=== PATIENT | female | born 1990 | race Caucasian/White ===

== ENCOUNTER 2024-06-11 20:01 | Emergency (ER) | payer OTHER, SELFPAY ==
[2024-06-11 20:05] VITALS: BP 143/83; PULSE 88; TEMP 36.6; O2SAT 98
--- NOTE | 2024-06-11 20:26 | ED_ITS ---
Documented by User: NAM Hylton 06/11/24 21:44 HPI - Female Genitourinary General Chief complaint: Vaginal Bleeding Stated complaint: Vaginal Bleeding Time Seen by Provider: 06/11/24 20:07 Source: patient and friend (Pain) Mode of arrival: walk-in Limitations: no limitations History of Present Illness HPI Narrative: 34-year-old female presents to the emergency department with fianc? with complaint of abdominal pain, cramping. Onset yesterday. She has had associated vaginal bleeding, describes as heavy. Has not noticed any clots. Symptoms have been worsening since yesterday. Patient recently had her IUD removed and had her first period on the 15th of last month. States she had not had a period in 14 years. States pain wraps around to her back. Has had associated nausea. Denies any fever, vomiting, dysuria, frequency. Surgical history positive for 14 years ago Quality:?Cramping Severity:?Moderate Timing:?As above, constant, worsening Context: Normal setting and activity? Modifying factors:?Pain worse with palpation Associated symptoms: As above Related Data Allergies Allergy/AdvReac Type Severity Reaction Status Date / Time No Known Drug Allergies Allergy Verified 06/11/24 20:14 Review of Systems ROS0 Constitutional Denies: fever or chills Cardiovascular Denies: chest pain or shortness of breath with exertion Respiratory Denies: shortness of breath Gastrointestinal Reports: abdominal pain and nausea; Denies: vomiting or diarrhea Genitourinary Reports: vaginal bleeding, irregular period and change in menstrual flow; Denies: painful urination, urinary frequency, pelvic pain or vaginal discharge Musculoskeletal Reports: back pain PFSH PFSH Social History Little interest or pleasure in doing things: not at all Feeling down, depressed, or hopeless: not at all Exam Constitutional Vital Signs, click to edit/add: Last Vital Signs Temp 97.9 F 06/11/24 20:05 Pulse 88 06/11/24 20:05 Resp 22 H 06/11/24 20:05 BP 143/83 H 06/11/24 20:05 Pulse Ox 98 06/11/24 20:05 O2 Del Method Room Air 06/11/24 20:05 Documenting provider has reviewed patient's vital signs: yes Common normals: no apparent distress, oriented x3 and alert Other: Appears uncomfortable HENMT Common normals: normocephalic and head/scalp atraumatic Head and scalp: normocephalic and atraumatic Respiratory Common normals: normal respiratory effort and clear to auscultation bilaterally Effort & inspection: able to speak in complete sentences Auscultation: clear to auscultation bilaterally Cardio Common normals: regular rate, regular rhythm and no murmurs Rate: regular rate Rhythm: regular rhythm GI Common normals: Normal to inspection, nondistended, normoactive bowel sounds present and soft to palpation Palpation: soft and tender Details: other (generalized) Common normals: no CVA tenderness Bladder/kidney exam: no CVA tenderness Back & Pelvis Common normals: no CVA tenderness Neuro Common normals: oriented x3, moves all extremities, no focal motor deficits and gait normal Sensorium/orientation: alert Course Vital Signs Vital signs: Vital Signs Temperature 97.9 F 06/11/24 20:05 Pulse Rate 88 06/11/24 20:05 Respiratory Rate 22 H 06/11/24 20:05 Blood Pressure 143/83 H 06/11/24 20:05 Pulse Oximetry 98 06/11/24 20:05 Oxygen Delivery Method Room Air 06/11/24 20:05 Temperature 97.9 F 06/11/24 20:05 Pulse Rate 88 06/11/24 20:05 Respiratory Rate 22 H 06/11/24 20:05 Blood Pressure 143/83 H 06/11/24 20:05 Pulse Oximetry 98 06/11/24 20:05 Oxygen Delivery Method Room Air 06/11/24 20:05 MDM - Female Genitourinary MDM Narrative Medical decision making narrative: This is a pleasant 34-year-old female who presented to the emergency department with kenrick with complaint of abdominal pain that wraps around to her back, heavy vaginal bleeding since yesterday. Pain described as cramping. Has had some nausea. Patient started having periods last month after IUD removed. She had implant and Depo shots and has not had a period in 14 years following her first . Prior to yesterday, her last period was May 15. On arrival, afebrile, vital signs are stable. On exam, nontoxic, uncomfortable appearing patient in no gross distress. Heart regular rate and rhythm. Lung sounds clear and equal bilaterally. Abdomen is soft with generalized tenderness throughout. She does have CVA tenderness. Labs reveal negative . She has a leukocytosis of 16.8. No anemia, thrombocytopenia, electrolyte imbalance, renal impairment. Glucose 116. Magnesium 1.5. Urinalysis positive for blood, no evidence of infection. US PELVIS: pending CT ABD/PELVIS: pending Favor dysmenorrhea, abdominal pain, dysfunctional uterine bleeding Ectopic, less likely based on negative test urinary tract infection less likely based on negative urinalysis. History and record review Discussion with independent historian: Kimberli? No additional records available Additional testing interventions IV fluids: Hydration PLEASE NOTE: Portions of the medical record may have been produced using electronic range operator and may contain errors with respect to translation of words which may not have been identified prior to finalization of the chart. Medical Records Attestation: I reviewed the patient's medical records. Lab Data Attestation: I reviewed the patient's lab results. Labs: Lab Results 06/11/24 06/11/24 Range/Units 20:15 20:30 WBC 16.8 H (4.0-11.0) 10^3/uL RBC 4.43 (4.20-5.40) 10^6/uL Hgb 12.4 (12.0-16.0) g/dL Hct 36.7 (36.0-48.0) % MCV 82.8 (81.0-99.0) fL MCH 28.0 (26.7-34.0) pg MCHC 33.8 (29.9-35.2) g/dL RDW 13.9 (11.0-15.0) % Plt Count 274 (150-450) 10^3/uL MPV 9.9 (9.5-13.5) fL Neut % (Auto) 88.6 H (43.0-75.0) % Lymph % (Auto) 6.1 L (20.5-60.0) % [place] % (Auto) 4.5 (1.7-12.0) % Eos % (Auto) 0.2 L (0.9-7.0) % Baso % (Auto) 0.2 (0.2-2.0) % Neut # (Auto) 14.9 H (1.4-6.5) 10^3/uL Lymph # (Auto) 1.0 L (1.2-3.8) 10^3/uL [place] # (Auto) 0.8 (0.3-0.8) 10^3/uL Eos # (Auto) 0.0 (0.0-0.7) 10^3/uL Baso # (Auto) 0.0 (0.0-0.1) 10^3/uL Abs Immat Gran (auto) 0.06 H (0.00-0.03) 10^3/uL Imm/Tot Granulo (auto) 0.4 (0.0-0.5) % Sodium 134 L (136-145) mmol/L Potassium 3.4 L (3.5-5.1) mmol/L Chloride 101 (98-107) mmol/L Carbon Dioxide 24.5 (21.0-32.0) mmol/L Anion Gap 11.9 BUN 17.0 (7.0-18.0) mg/dL Creatinine 0.69 (0.55-1.02) mg/dL Est GFR ( Amer) >60 (>=60) Est GFR (Non-Af Amer) >60 (>=60) BUN/Creatinine Ratio 24.6 Glucose 116 H (74-106) mg/dL Calcium 8.9 (8.5-10.1) mg/dL Magnesium 1.5 L (1.8-2.4) mg/dL Total Bilirubin 0.5 (0.2-1.0) mg/dL AST 16 (15-37) U/L ALT 24 (14-59) U/L Alkaline Phosphatase 67 (46-116) U/L Total Protein 7.3 (6.4-8.2) g/dL Albumin 3.7 (3.4-5.0) g/dL Globulin 3.6 g/dL Albumin/Globulin Ratio 1.0 Lipase 46.0 (16.0-77.0) U/L Serum HCG, Qual Negative (NEGATIVE) Urine Color Lt. yellow (YELLOW) Urine Clarity Clear (CLEAR) Urine pH >=9.0 A (5.0-9.0) Ur Specific [place] 1.020 (1.005-1.025) Urine Protein Trace (NEG/TRACE) mg/dL Urine Glucose (UA) Negative (NEGATIVE) mg/dL Urine Ketones Negative (NEGATIVE) mg/dL Urine Occult Blood Large A (NEGATIVE) Urine Nitrite Negative (NEGATIVE) Urine Bilirubin Negative (NEGATIVE) Urine Urobilinogen 1.0 (0.2-1.0) EU/dL Ur Leukocyte Esterase Negative (NEGATIVE) Urine RBC 5-10 A (0-2) #/HPF Urine WBC 0-2 A (NONE SEEN) #/HPF Ur Squamous Epith Cells Few A (NONE/RARE) #/LPF Urine Crystals None seen (None Seen) #/HPF Urine Bacteria Small A (NONE SEEN) #/HPF Urine Casts None seen (NONE SEEN) #/LPF Urine Mucus None seen (NONE SEEN) Ur Culture Indicated? Yes Imaging Data Abdominal x-ray: Radiologist's impression: ITS Impressions Abdomen/Pelvis CT 06/11/24 21:03 IMPRESSION: 1. Appendix is normal. No hydronephrosis. No hydroureter. Gallbladder is normal. Pancreas is normal. 2. Small hiatal hernia. Stomach and duodenum are normal. 3. Nonspecific endometrial thickening, correlate with ultrasound. 4. Small fat-containing periumbilical hernia. 5. Other findings as described. Electronically authenticated by: MANUEL RANGEL Date: 06/11/2024 22:55 Transvaginal US 06/11/24 21:03 IMPRESSION: 1. The left ovary is not seen. Blood flow is seen within the right ovary which is normal in size. 2. Borderline thickened endometrium. Consider a follow-up examination in 6-8 weeks to document resolution. Electronically authenticated by: Mitchel ANDRADE Date: 06/11/2024 23:25 Discharge Plan Discharge Chief Complaint: Vaginal Bleeding Clinical Impression: Dysfunctional uterine bleeding, Dysmenorrhea Abdominal pain Qualifiers: Abdominal location: generalized Qualified Code(s): R10.84 - Generalized abdominal pain Patient Disposition: Home, Self-Care Print Language: Latvian Instructions: Abnormal (Dysfunctional) Uterine Bleeding (ED), Dysmenorrhea (ED) Additional Instructions: contact Dr Solares tomorrow for follow up Referrals: FAITH LEGGETT [Primary Care Provider] - 1 week Documented by User: Mak Wiley MD 06/11/24 23:51 HPI - Female Genitourinary General Chief complaint: Vaginal Bleeding Stated complaint: Vaginal Bleeding Time Seen by Provider: 06/11/24 20:07 Related Data Allergies Allergy/AdvReac Type Severity Reaction Status Date / Time No Known Drug Allergies Allergy Verified 06/11/24 20:14 PFSH PFSH Social History Little interest or pleasure in doing things: not at all Feeling down, depressed, or hopeless: not at all Exam Constitutional Vital Signs, click to edit/add: Last Vital Signs Temp 97.9 F 06/11/24 20:05 Pulse 88 06/11/24 20:05 Resp 22 H 06/11/24 20:05 BP 143/83 H 06/11/24 20:05 Pulse Ox 98 06/11/24 20:05 O2 Del Method Room Air 06/11/24 20:05 Course Vital Signs Vital signs: Vital Signs Temperature 97.9 F 06/11/24 20:05 Pulse Rate 88 06/11/24 20:05 Respiratory Rate 22 H 06/11/24 20:05 Blood Pressure 143/83 H 06/11/24 20:05 Pulse Oximetry 98 06/11/24 20:05 Oxygen Delivery Method Room Air 06/11/24 20:05 Temperature 97.9 F 06/11/24 20:05 Pulse Rate 88 06/11/24 20:05 Respiratory Rate 22 H 06/11/24 20:05 Blood Pressure 143/83 H 06/11/24 20:05 Pulse Oximetry 98 06/11/24 20:05 Oxygen Delivery Method Room Air 06/11/24 20:05 MDM - Female Genitourinary Medical Records Medical records narrative: care transferred at end of PA shift. diagnostic studies pending and returned without acute findings. Patient is feeling better. Discharged home and advised to contact her Life Assurance Representative tomorrow to update on her condition and schedule follow up. elevated WBC felt 2nd to pain and demargnation Lab Data Labs: Lab Results 06/11/24 06/11/24 Range/Units 20:15 20:30 WBC 16.8 H (4.0-11.0) 10^3/uL RBC 4.43 (4.20-5.40) 10^6/uL Hgb 12.4 (12.0-16.0) g/dL Hct 36.7 (36.0-48.0) % MCV 82.8 (81.0-99.0) fL MCH 28.0 (26.7-34.0) pg MCHC 33.8 (29.9-35.2) g/dL RDW 13.9 (11.0-15.0) % Plt Count 274 (150-450) 10^3/uL MPV 9.9 (9.5-13.5) fL Neut % (Auto) 88.6 H (43.0-75.0) % Lymph % (Auto) 6.1 L (20.5-60.0) % [place] % (Auto) 4.5 (1.7-12.0) % Eos % (Auto) 0.2 L (0.9-7.0) % Baso % (Auto) 0.2 (0.2-2.0) % Neut # (Auto) 14.9 H (1.4-6.5) 10^3/uL Lymph # (Auto) 1.0 L (1.2-3.8) 10^3/uL [place] # (Auto) 0.8 (0.3-0.8) 10^3/uL Eos # (Auto) 0.0 (0.0-0.7) 10^3/uL Baso # (Auto) 0.0 (0.0-0.1) 10^3/uL Abs Immat Gran (auto) 0.06 H (0.00-0.03) 10^3/uL Imm/Tot Granulo (auto) 0.4 (0.0-0.5) % Sodium 134 L (136-145) mmol/L Potassium 3.4 L (3.5-5.1) mmol/L Chloride 101 (98-107) mmol/L Carbon Dioxide 24.5 (21.0-32.0) mmol/L Anion Gap 11.9 BUN 17.0 (7.0-18.0) mg/dL Creatinine 0.69 (0.55-1.02) mg/dL Est GFR ( Amer) >60 (>=60) Est GFR (Non-Af Amer) >60 (>=60) BUN/Creatinine Ratio 24.6 Glucose 116 H (74-106) mg/dL Calcium 8.9 (8.5-10.1) mg/dL Magnesium 1.5 L (1.8-2.4) mg/dL Total Bilirubin 0.5 (0.2-1.0) mg/dL AST 16 (15-37) U/L ALT 24 (14-59) U/L Alkaline Phosphatase 67 (46-116) U/L Total Protein 7.3 (6.4-8.2) g/dL Albumin 3.7 (3.4-5.0) g/dL Globulin 3.6 g/dL Albumin/Globulin Ratio 1.0 Lipase 46.0 (16.0-77.0) U/L Serum HCG, Qual Negative (NEGATIVE) Urine Color Lt. yellow (YELLOW) Urine Clarity Clear (CLEAR) Urine pH >=9.0 A (5.0-9.0) Ur Specific [place] 1.020 (1.005-1.025) Urine Protein Trace (NEG/TRACE) mg/dL Urine Glucose (UA) Negative (NEGATIVE) mg/dL Urine Ketones Negative (NEGATIVE) mg/dL Urine Occult Blood Large A (NEGATIVE) Urine Nitrite Negative (NEGATIVE) Urine Bilirubin Negative (NEGATIVE) Urine Urobilinogen 1.0 (0.2-1.0) EU/dL Ur Leukocyte Esterase Negative (NEGATIVE) Urine RBC 5-10 A (0-2) #/HPF Urine WBC 0-2 A (NONE SEEN) #/HPF Ur Squamous Epith Cells Few A (NONE/RARE) #/LPF Urine Crystals None seen (None Seen) #/HPF Urine Bacteria Small A (NONE SEEN) #/HPF Urine Casts None seen (NONE SEEN) #/LPF Urine Mucus None seen (NONE SEEN) Ur Culture Indicated? Yes Imaging Data Abdominal x-ray: Radiologist's impression: ITS Impressions Abdomen/Pelvis CT 06/11/24 21:03 IMPRESSION: 1. Appendix is normal. No hydronephrosis. No hydroureter. Gallbladder is normal. Pancreas is normal. 2. Small hiatal hernia. Stomach and duodenum are normal. 3. Nonspecific endometrial thickening, correlate with ultrasound. 4. Small fat-containing periumbilical hernia. 5. Other findings as described. Electronically authenticated by: MANUEL RANGEL Date: 06/11/2024 22:55 Transvaginal US 06/11/24 21:03
[2024-06-11 20:38] LABS: Basophils Percent Auto 0.2 % (0.2-2.0); Eosinophils Percent Auto 0.2 % (0.9-7.0); Hematocrit 36.7 % (36.0-48.0); Hemoglobin 12.4 g/dL (12.0-16.0); Immature Granulocytes Abs Auto 0.06 10^3/uL (0.00-0.03); Immature Granulocytes Pct Auto 0.4 % (0.0-0.5); Lymphocytes Percent Auto 6.1 % (20.5-60.0); Mean Corpuscular HGB Conc 33.8 g/dL (29.9-35.2); Mean Corpuscular Volume 82.8 fL (81.0-99.0); Mean Platelet Volume 9.9 fL (9.5-13.5); Monocytes Absolute Auto 0.8 10^3/uL (0.3-0.8); Monocytes Percent Auto 4.5 % (1.7-12.0); Neutrophils Absolute Auto 14.9 10^3/uL (1.4-6.5); Neutrophils Percent Auto 88.6 % (43.0-75.0); Platelet Count 274 10^3/uL (150-450); Red Blood Count 4.43 10^6/uL (4.20-5.40); Red Cell Distribution Width 13.9 % (11.0-15.0); White Blood Count 16.8 10^3/uL (4.0-11.0)
[2024-06-11 20:39] LABS: Bilirubin Urine NEGATIVE (NEGATIVE); Blood Urine LARGE (NEGATIVE); Clarity Urine CLEAR (CLEAR); Color Urine LT. YELLOW (YELLOW); Glucose Urine UA NEGATIVE (NEGATIVE); Ketones Urine NEGATIVE (NEGATIVE); Leukocyte Esterase Urine NEGATIVE (NEGATIVE); Nitrite Urine NEGATIVE (NEGATIVE); Protein Urine TRACE mg/dL (NEG/TRACE); pH Urine >=9.0 (5.0-9.0)
[2024-06-11 20:47] LABS: Bacteria Urine SMALL #/HPF (NONE SEEN); Cast Seen? NONE SEEN #/LPF (NONE SEEN); Crystals Seen? None Seen #/HPF (None Seen); Mucus Urine NONE SEEN (NONE SEEN); Squamous Epithelial Cell Urine FEW #/LPF (NONE/RARE); Urine Culture Indicated YES; WBC Urine 0-2 #/HPF (NONE SEEN)
[2024-06-11 20:48] LABS: HCG Qualitative NEGATIVE (NEGATIVE); Internal Control Within Normal Limits
[2024-06-11] MEDS: 0.9 % SODIUM CHLORIDE 1,000 ML 999 ML IV (20:51)
[2024-06-11] MEDS: MORPHINE SULFATE 4 MG/ML VIAL IV (20:52)
[2024-06-11] MEDS: ONDANSETRON PF 4 MG/2 ML VIAL IV (20:52)
[2024-06-11 20:54] LABS: Alanine Aminotransferase 24 U/L (14-59); Albumin Level 3.7 g/dL (3.4-5.0); Alkaline Phosphatase 67 U/L (46-116); Anion Gap 11.9; Aspartate Amino Transferase 16 U/L (15-37); BUN Creatinine Ratio 24.6; Bilirubin Total 0.5 mg/dL (0.2-1.0); Calcium 8.9 mg/dL (8.5-10.1); Carbon Dioxide 24.5 mmol/L (21.0-32.0); Chloride 101 mmol/L (98-107); Estimated GFR (African America >60 (>=60); Estimated GFR (Non-African Ame >60 (>=60); Globulin 3.6 g/dL; Glucose 116 mg/dL (74-106); Magnesium 1.5 mg/dL (1.8-2.4); Potassium 3.4 mmol/L (3.5-5.1); Sodium 134 mmol/L (136-145); Total Protein 7.3 g/dL (6.4-8.2)
--- NOTE | 2024-06-11 21:03 | US_ITS ---
[facility] [place] [id number] Patient Name: BRAEDEN CHAMBERLAIN MRN: [id number] date: 1990 Sex: F Assigned Patient Location: ED.MAIN Current Patient Location: ER Accession/Order Number: [id number] Exam Date: 06/11/2024 21:25 Report Date: 06/11/2024 23:25 At the request of: DONALD NG Procedure: US pelvis transvaginal EXAM: US pelvis transvaginal HISTORY: abd, pelvic pain, vaginal bleeding r/o torsion, COMPARISON: None. TECHNIQUE: Real time pelvic ultrasound examination was performed using Duplex Doppler by a transvaginal approach. FINDINGS: The uterus is normal in size and echogenicity measuring 11.2 cm in length. No focal myometrial lesions are seen. The endometrium is borderline thickened measuring up to 1.7 cm in thickness. The right ovary measures 3.7 x 2.3 x 2.7 cm. There is a suspected right ovarian follicle measuring up to 1.3 x 1.3 x 2.0 cm. The left ovary is not seen. Blood flow is seen in the right ovary. There is no significant free fluid. US/US pelvis transvaginal IMPRESSION: 1. The left ovary is not seen. Blood flow is seen within the right ovary which is normal in size. 2. Borderline thickened endometrium. Consider a follow-up examination in 6-8 weeks to document resolution. Electronically authenticated by: Mitchel ANDRADE Date: 06/11/2024 23:25
--- NOTE | 2024-06-11 21:03 | CT_ITS ---
[address] [address] Patient Name: BRAEDEN CHAMBERLAIN MRN: [id number] date: 1990 Sex: F Assigned Patient Location: ER Current Patient Location: .[facility] Accession/Order Number: [id number] Exam Date: 06/11/2024 21:56 Report Date: 06/11/2024 22:55 At the request of: DONALD NG Procedure: CT abdomen pelvis w con EXAM: CT abdomen pelvis w con HISTORY: leukocytosis, abd pain, generalized COMPARISON: None. TECHNIQUE: Dose reduction techniques were achieved by using automated exposure control and/or adjustment of mA and/or kV according to patient size and/or use of iterative reconstruction technique.CT of the abdomen and pelvis with contrast. FINDINGS: Lung bases are clear. Liver, gallbladder, spleen, pancreas, kidneys, distal esophagus, stomach, duodenum and adrenal glands are normal. No colonic wall thickening or dilation. No small bowel dilation. No mesenteric edema. Appendix is normal. No bladder wall thickening. Nonspecific subcentimeter Nonspecific large mediastinal nodes. Large mediastinal node measuring 1.1 cm (). Large mediastinal node measuring 1.1 cm (). Fat-containing periumbilical hernia. No acute osseous abnormality. Mild degeneration of the symphysis pubis. No acute osseous abnormality. CT/CT abdomen pelvis w con IMPRESSION: 1. Appendix is normal. No hydronephrosis. No hydroureter. Gallbladder is normal. Pancreas is normal. 2. Small hiatal hernia. Stomach and duodenum are normal. 3. Nonspecific endometrial thickening, correlate with ultrasound. 4. Small fat-containing periumbilical hernia. 5. Other findings as described. Electronically authenticated by: MANUEL RANGEL Date: 06/11/2024 22:55
[2024-06-11] MEDS: KETOROLAC TROMETHAMINE 30 MG/ML VIAL 15 MG IVP (22:16)
[2024-06-11] MEDS: MAGNESIUM SULFATE IN WATER 2 GM/50 ML PREMIX IV (22:17)
[2024-06-12] MEDS: HYDROCODONE/ACET 5-325 MG TABLET 4 TAB PO (00:02)
== END 2024-06-12 00:12 | disposition home or self-care (01) ==
PROVIDERS: Physician Assistant; Emergency Provider Internal Medicine; PCP Physician Assistant
DX: N94.6 Dysmenorrhea, unspecified (principal); N93.9 Abnormal uterine and vaginal bleeding, unspecified; R10.84 Generalized abdominal pain
CPT/HCPCS: 36415; 74177; 76830; 80053; 81001; 83690; 83735; 84703; 85025; 87086; 87186; 87210; 87491; 87591; 96374; 96375; 99285; J1885; J2270; J2405; J3475; Q9967

== ENCOUNTER 2024-06-18 19:05 | Outpatient (REF) | payer OTHER, SELFPAY ==
--- OUTSIDE RECORDS SUMMARY | 2024-06-18 19:10 | XMS_ITS | CCD ---
Author Organization [facility] Care Team Providers Care Director Of Casework Department Name Role Phone RICKI RODRIGUEZ Admitting Unavailable RICKI RODRIGUEZ Attending Unavailable REQUEST, NONE LISTED Primary Care Unavailable RICKI RODRIGUEZ Consulting Unavailable PRAVIN PALOMINO Consulting Unavailable RICKI RODRIGUEZ Admitting Unavailable RICKI RODRIGUEZ Attending Unavailable RICKI RODRIGUEZ Consulting Unavailable Shireen Fournier Unavailable Unavailable Primary Care Provider UnavailJYOTI Yepez Attending Unavailable JYOTI LEGGETT Attending Unavailable JYOTI LEGGETT Attending Unavailable LUZMARIA MUNOZ Attending Unavailable JYOTI LEGGETT Attending Unavailable LUZMARIA MUNOZ Attending Unavailable JYOTI LEGGETT Attending Unavailable JYOTI LEGGETT Attending Unavailable Medications Current Medications Medication Drug Class(es) Dates Sig (Normalized) Sig (Original) cyclobenzaprine hydrochloride 10 mg oral tablet (1 source) Muscle Relaxant Start: 03-14-20 take 1 tablet by mouth every twenty-four hours Cyclobenzaprine HCl 10 MG 1 tablet at bedtime as needed Orally Once a day for 7 day(s) Mar, Active etonogestrel 68 mg drug implant (2 sources) Progestin etonogestrel-elu ting (Nexplanon) 68 mg contraceptive implant as directed Subcutaneous 0 Active lidocaine 0.05 mg/mg medicated patch (1 source) Antiarrhythmic, Amide Local Anesthetic Start: 03-14-20 Lidoderm 5 % 1 patch remove after 12 hours Externally Once a day for 7 days Mar, Active methylPREDNISolone 4 mg oral tablet (1 source) Corticosteroid Start: 03-14-20 methylPREDNISolone 4 MG as directed Orally for daily dose take half with breakfast, half with dinner for 6 days Mar, Active mometasone furoate 1 mg/ml topical lotion (2 sources) Corticosteroid Start: 11-13-19 mometasone (Elocon) 0.1 % lotion Indications: Dry skin dermatitis Apply topically Daily 30 mL 2 11/13/2023 Active phentermine hydrochloride 37.5 mg oral tablet (1 source) Sympathomimetic Amine Anorectic Start: 04-01-20 Phentermine Active MG PO April 01, 2024 12:00am predniSONE 20 mg oral tablet (1 source) Start: 04-01-20 take 3 tablets by mouth once daily, then take 2 tablets by mouth once daily, then take 1 tablet by mouth once daily Prednisone Active 20 MG PO .COMPLEX April 01, 2024 12:00am Take 3 tabs po daily x 3 days, then take 2 tabs po daily x 3 days, then take 1 tab po daily x 3 days. Completed/Discontinued Medications Medication Drug Class(es) Dates Sig (Normalized) Sig (Original) Ketorolac (1 source) Nonsteroidal Anti-inflammatory Drug, Cyclooxygenase Inhibitor Start: 03-14-2022 Toradol per 15 mg Mar, 30 mg triamcinolone acetonide 40 mg/ml injectable suspension (1 source) Corticosteroid Start: 03-14-2022 Kenalog-40 Mar, 40 mg Problems Active Problems Problem Classification Problem Date Documented Da te Episodic/Chronic Immunizations and screening for infectious disease (1 source) Encounter for screening for human papillomavirus (HPV); Translations: [ENC SCREENING HUMAN PAPILLOMAVIRUS] Onset: 06-30-2020 Episodic Other bone disease and musculoskeletal deformities (2 sources) Osteopenia; Translations: [Other specified disorders of bone density and structure, left thigh] Onset: 11-13-2023 11-13-2023 Episodic Other non-traumatic joint disorders (4 sources) Multiple joint pain; Translations: [Pain in unspecified joint] Onset: 11-13-2023 11-13-2023 Episodic Other nutritional; endocrine; and metabolic disorders (4 sources) Morbid obesity; Translations: [Morbid (severe) obesity due to excess calories] Onset: 11-13-2023 11-13-2023 Chronic Other screening for suspected conditions (not mental disorders or infectious disease) (4 sources) Encounter for screening for malignant neoplasm of cervix; Translations: [ENC SCREENING MALIG NEOPLASM CERV] Onset: 06-23-2020 Episodic Other skin disorders (4 sources) Dry skin dermatitis; Translations: [Xerosis cutis] Onset: 11-13-2023 11-13-2023 Episodic Viral infection (2 sources) Human papilloma virus infection; Translations: [Papillomavirus as the cause of diseases classified elsewhere] Onset: 11-13-2023 11-13-2023 Episodic Past or Other Problems Problem Classification Problem Date Documented Da te Episodic/Chronic Other aftercare (4 sources) Other superintendent container terminal (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 Comment on above: Performed By: #### [id number] #### [facility] [address] [place] [address] Cindy Montes DIAGNOSIS: Comment Normal [facility] Comment on above: Result Comment: NEGATIVE FOR INTRAEPITHE LIAL LESION OR MALIGNANCY. Performed at: WB Performed By: #### [id number] #### [facility] [address] [place] [address] Cindy Montes HPV Aptima Negative Normal Negative [facility] Comment on above: Result Comment: This test was developed and its performance characteristics determined by [employer]. It has not been cleared or approved by the Food and Drug Administration. This nucleic acid amplification test detects fourteen high-risk HPV types (16,18,31,33,35,39,45,51,52,56,58,59,66,68) without differentiation. Performed at: =G Performed By: #### [id number] #### [facility] [address] [place] [address] Cindy Montes Methodology: Comment Normal [facility] Comment on above: Result Comment: This liquid based SurePa th(R) pap test was screened with the assistance of an image guided system. Performed at: WB Performed By: #### [id number] #### [facility] [address] [place] [address] Cindy Jyoti Note: Comment Normal [facility] Comment on above: Result Comment: The Pap smear is a scree aaron test designed to aid in the detection of premalignant and malignant conditions of the uterine cervix. It is not a diagnostic procedure and should not be used as the sole means of detecting cervical cancer. Both false-positive and false-negative reports do occur. . Performed at: WB Performed By: #### [id number] #### [facility] [address] [place] [address] Cindy Jyoti Performed by: Comment Normal [facility] Comment on above: Result Comment: Charis Mi [employer] ologist (ASCP) Performed at: WB Performed By: #### [id number] #### [facility] [address] [place] [address] Cindy Jyoti Specimen adequacy: Comment Normal [facility] Comment on above: Result Comment: Satisfactory for evaluat ion. Endocervical and/or squamous metaplastic cells (endocervical component) are present. Performed at: WB Performed By: #### [id number] #### [facility] [address] [place] [address] Cindy Jyoti . . Normal [facility] Comment on above: Result Comment: Performed at: WB Performed By: #### [id number] #### [facility] [address] [place] [address] Cindyfrandy Terrazasen XR DEXA BONE DENSITYon 09-22 XR DEXA BONE DENSITY Patient: BRAEDEN MCCULLOUGH Exam Date: 09/22/2019 : 1990 Gender:F Ordering : DR RICKI RODRIGUEZ . Admission #: [id number] Family : Order #: [id number] CLICK HERE TO VIEW EXAM RADIOLOGY REPORT PROCEDURE: RADIOGRAPH DEXA BONE DENSITY COMPARISON: None. INDICATIONS: Long-term use of control. Screening for osteoporosis TECHNIQUE: Dual-energy X-ray absorptiometry (DXA) was performed. SPINE ANALYSIS RESULTS: Average lumbar bone mineral density (BMD) (g/cm2): 1.254 T-score (standard deviation relative to young adult mean BMD): 0.5 SPINE CLASSIFICATION (WHO): NORMAL: T-score at or above -1.0 SD HIP ANALYSIS RESULTS: Left femoral trochanter bone mineral density (BMD) (g/cm2): 0.716 T-score (standard deviation relative to young adult mean BMD): -1.2 HIP CLASSIFICATION (WHO): OSTEOPENIA: T-score between -1.0 AND -2.5 SD Note: The 2007 International Society for Clinical Densitometry (ISCD) Official Positions state that osteoporosis in dirk-menopausal and post-menopausal women and in men age 50 and older may be diagnosed if the T-score of the lumbar spine, total hip, or femoral neck is -2.5 or less. Hip BMD is reported from the femoral neck, trochanter, or total proximal femur whichever is lowest. ADDITIONAL FINDINGS: No significant additional findings. Dictated by: Pravin Palomino M.D. on 09/22/2019 at 10:54 Approved by: Pravin Palomino M.D. on 09/22/2019 at 10:[address] [facility] Vital Signs Date Time Vital Sign Value Performing Clinician Facility 04-01-2024 10:38-0400 Body height 170.18 cm [facility] 04-01-2024 10:38-0400 Body mass index (BMI) [Ratio] 36.6 kg/m2 [facility] 04-01-2024 10:38-0400 Body temperature 97.3 [degF] [facility] 04-01-2024 10:38-0400 Body weight 106.25 kg [facility] 04-01-2024 10:38-0400 Diastolic blood pressure 89 mm[Hg] [facility] 04-01-2024 10:38-0400 Heart rate 66 /min [facility] 04-01-2024 10:38-0400 Respiratory rate 16 /min [facility] 04-01-2024 10:38-0400 SaO2% (BldA) [Mass fraction] 98 % [facility] 04-01-2024 10:38-0400 Systolic blood pressure 124 mm[Hg] [facility] 11-13-2023 15:56-0500 Body mass index (BMI) [Ratio] 40.1 kg/m2 Jyoti Hemmer PA Work Phone: [facility] [employer] 11-13-2023 15:56-0500 Body weight 116.12 kg Jyoti Hemmer PA Work Phone: [facility] [employer] 11-13-2023 15:56-0500 Diastolic blood pressure 72 mm[Hg] Jyoti Hemmer PA Work Phone: [facility] [employer] 11-13-2023 15:56-0500 Heart rate 81 /min Jyoti Hemmer PA Work Phone: [facility] [employer] 11-13-2023 15:56-0500 Respiratory rate 16 /min Jyoti Hemmer PA Work Phone: [facility] [employer] 11-13-2023 15:56-0500 SaO2% (BldA) [Mass fraction] 99 % Jyoti Hemmer PA Work Phone: [facility] [employer] 11-13-2023 15:56-0500 Systolic blood pressure 106 mm[Hg] Jyoti Hemmer PA Work Phone: [facility] [employer] 03-14-2022 18:35-0400 Body height 170.18 cm Shireen Fournier Other [employer] Other 03-14-2022 18:35-0400 Body mass index (BMI) [Ratio] 41.97 kg/m2 Shireen Fournier Other [employer] Other 03-14-2022 18:35-0400 Body temperature 98 [degF] Shrieen Haleler Other [employer] Other 03-14-2022 18:35-0400 Body weight 121.56 kg Shireen Fournier Other [employer] Other 03-14-2022 18:35-0400 Diastolic blood pressure 76 mm[Hg] Shireen Fournier Other [employer] Other 03-14-2022 18:35-0400 Respiratory rate 18 /min Shireen Fournier Other [employer] Other 03-14-2022 18:35-0400 SaO2% (BldA) [Mass fraction] 98 % Shireen Fournier Other [employer] Other 03-14-2022 18:35-0400 Systolic blood pressure 120 mm[Hg] Shireen Fournier Other [employer] Other Encounters Encounter Date Encounter Type Care Provider Facility Start: 06-16-2024 End: 06-16-2024 ambulatory JYOTI LEGGETT Not Available Start: 05-12-2024 End: 05-12-2024 ambulatory JYOTI Bryan HEMMER Not Available Start: 04-14-2024 End: 04-14-2024 ambulatory LUZMARIA ALEXANDER Not Available Start: 04-09-2024 End: 04-09-2024 ambulatory JYOTI Bryan HEMMER Not Available Start: 04-01-2024 End: 04-01-2024 ambulatory [facility] Work Phone: Start: 04-01-2024 End: 04-01-2024 Patient encounter procedure [facility] Work Phone: Start: 03-12-2024 End: 03-12-2024 ambulatory LUZMARIA ALEXANDER Not Available Start: 03-11-2024 End: 03-11-2024 ambulatory JYOTI Bryan HEMMER Not Available Start: 02-11-2024 End: 02-11-2024 ambulatory JYOTI Bryan HEMMER Not Available Start: 11-13-2023 End: 11-13-2023 Office outpatient visit 25 minutes Jyoti Leggett PA Work Phone: [facility] Comment on above: Polyarthralgia (Prim gato Dx); Morbid obesity (CMS/HCC); Dry skin dermatitis Start: 11-13-2023 End: 11-13-2023 ambulatory JYOTI Bryan HEMMER Not Available Start: 11-13-2023 Bamboo flowsheet Jyoti Bryan Allen r PA Work Phone: [facility] Start: 11-13-2023 Bamboo flowsheet Jyoti Bryan Allen r PA Work Phone: [facility] Start: 11-12-2023 Chart abstracting Jyoti Bryan Amanda er PA Work Phone: [facility] Start: 03-14-2022 End: 03-14-2022 ambulatory Shireen Fournier Other [facility] Other Start: 03-14-2022 Office outpatient vi sit 25 minutes Shireen Fournier [facility] Start: 06-23-2020 End: 06-23-2020 Patient encounter procedure RICKI RODRIGUEZ Facility:[facility] Start: 09-22-2019 End: 09-23-2019 Patient encounter procedure RICKI RODRIGUEZ Facility: Plan of Treatment Date Care Activity Detail Author Start: 03-30-2024 Influenza vaccination Influenza Vacc ine (#1) [facility] Comment on above: Postponed from 06/01 (Patient Refused) Start: 02-11-2024 End: 02-11-2024 Patient encounter procedure 02/11/2024 4:00 PM EDT Office Visit [facility] [address] [facility] [address] [place] [address] Jyoti Leggett PA [address] [facility] [address] [place] [address] [facility] Start: 11-13-2023 End: 11-13-2023 Patient encounter procedure [facility] Comment on above: Arrived Start: 2018 Screening for malign ant neoplasm of cervix [facility] Start: 2009 Screening for malign ant neoplasm of cervix Pap Smear [facility] Immunizations Immunization Date Immunization Notes Care Provider Tena leija 03-18-2021 Pfizer Purple Cap SARS-CoV-2 Vaccination Jyoti BROWNING Work Phone: [facility] 02-25-2021 Pfizer Purple Cap SARS-CoV-2 Vaccination Jyoti BROWNING Work Phone: [facility] 05-09-2000 measles, mumps and rubella virus vaccine Jyoti Hemmer PA Work Phone: [facility] 04-18-1993 diphtheria, tetanus toxoids and pertussis vaccine Jyoti Hemmer PA Work Phone: [facility] 04-18-1993 trivalent poliovirus vaccine, live, oral Jyoti Hemmer PA Work Phone: [facility] 03-04-1990 diphtheria, tetanus toxoids and pertussis vaccine Jyoti Hemmer PA Work Phone: [facility] 03-04-1990 haemophilus influenz ae type b vaccine, conjugate unspecified formulation Jyoti Hemmer PA Work Phone: [facility] 03-04-1990 trivalent poliovirus vaccine, live, oral Jyoti Hemmer PA Work Phone: [facility] 11-05-1989 measles, mumps and rubella virus vaccine Jyoti Hemmer PA Work Phone: [facility] 04-02-1989 diphtheria, tetanus toxoids and pertussis vaccine Jyoti Hemmer PA Work Phone: [facility] 1990 diphtheria, tetanus toxoids and pertussis vaccine Jyoti Hemmer PA Work Phone: [facility] 1990 trivalent poliovirus vaccine, live, oral Jyoti Hemmer PA Work Phone: [facility] 1990 diphtheria, tetanus toxoids and pertussis vaccine Jyoti Hemmer PA Work Phone: [facility] 1990 trivalent poliovirus vaccine, live, oral Jyoti Hemmer PA Work Phone: [facility] Payers Date Payer Category Payer Unknown [facility] [employer] [id number] 2023-Present [address] [address] [place] [address] [id number] 2023 Unknown [id number] 2022 Unknown [id number] 1990 Unknown [id number] 3 1988 Unknown [id number] 3 1988 Unknown [id number] 59 1988 Unknown [id number] 59 1988 Unknown [id number] 59 1988 Unknown [id number] 59 1988 Unknown [id number] 59 1988 Unknown [id number] 59 1988 Unknown [id number] 59 1988 Unknown [id number] 59 1959 Unknown [id number] Social History Date Type Detail Facility Unknown if ever smoked [facility] [employer] Other Start: 11-13-2023 Sex Assigned At N [facility] [employer] Other Start: 11-12-2023 End: 11-13-2023 Tobacco smoking status ARIS Never smoked tobacco [facility] Start: 1990 Sex Assigned At Not on file [facility] Start: 11-13-2023 Tobacco use and exposure Smokeless tobacco non-user [facility] Start: 11-13-2023 Alcohol intake Lifetime non-d sahara (finding) [facility] Start: 11-13-2023 History of Social function [facility] Start: 1990 Sex Assigned At Female F [facility] History of Present illness Narrative 11-13-2023 NAM Orourke - 11/13/2023 4:00 PM EST Note Date & Type Note Facility 11-13-2023 History of Presen t illness Narrative Subjective Patient ID: Bareden Mccullough is a 33 y.o. female who presents to become established. Braeden is present today to become established. She does not have any concerns today just wanted to get established. 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 Worst in the morning. Does stretches. Does not take anything OTC. 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 Has a 13 year old son. Was on the depo-provera shot for 10 years, caused her to gain weight. Admits does not eat a healthy diet. is considering having another child. Her boyfriend wants to have a child. Considering having her Nexplanon taken out. Current Outpatient Medications on File Prior to Visit Medication Sig Dispense Refill etonogestrel-eluting (Nexplanon) 68 mg contraceptive implant as directed Subcutaneous No current facility-administered medications on file prior to visit. 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 Respiratory: Negative for cough, shortness of breath and wheezing. Cardiovascular: Negative for chest pain, palpitations and leg swelling. Gastrointestinal: Negative for abdominal pain, constipation, diarrhea, nausea and vomiting. Musculoskeletal: Positive for arthralgias. Skin: Negative for rash. Objective Physical Exam Constitutional: General: She is not in acute distress. Appearance: She is well-developed. She is obese. HENT: Head: Normocephalic and atraumatic. Eyes: General: No scleral icterus. Conjunctiva/sclera: Conjunctivae normal. Cardiovascular: Rate and Rhythm: Normal rate and regular rhythm. Heart sounds: Normal heart sounds. No murmur heard. Pulmonary: Effort: Pulmonary effort is normal. No respiratory distress. Breath sounds: Normal breath sounds. No wheezing, rhonchi or rales. Skin: General: Skin is warm and dry. Neurological: General: No focal deficit present. Mental Status: She is alert and oriented to person, place, and time. Psychiatric: Mood and Affect: Mood normal. Behavior: Behavior normal. Assessment/Plan Diagnoses and all orders for this visit: Polyarthralgia Encouraged pt to continue with routine stretches. Morbid obesity (CMS/HCC) Encouraged portion control, decrease simple sugars and carbohydrates, gradually increase activity level. Aim for gradual steady weight loss. Dry skin dermatitis Continue Aquaphor daily after your shower. Elocon cream sent in for pt to use as needed. Reviewed applications for use. Consider vitamin. Follow up with [facility] prn. Follow up in about 3 months (around 02/11/2024) for Follow Up. documented in this encounter [facility] Evaluation note 03-14-2022 Note Date & Type Note Facility 03-14-2022 Evaluation note Encounter Date Diagnosis Assessment Notes Mar, Spasm of thoracic back muscle (ICD-10 - M62.830) Discussed diagnosis with patient. Toradol and Kenalog injection given today in office. Advised patient to take medications as directed. Use muscle relaxer at night time as it may cause drowsiness. May use OTC Tylenol and icy hot application for additional relief. Encouraged warm compresses, light stretches, and massage may also help with pain. Avoid strenuous activity, perform activity as tolerated, do not stay stationary for long periods of time as it might make symptoms worse. Follow up with PCP in 1 week if symptoms do not improve. Immediate eval for chest pain, shortness of breath, fever, numbness or tingling, loss of bowel or bladder control, pain becomes severe, difficulty moving neck, back, arms or legs, dizziness, headache, or any other new or concerning symptoms arise. Patient verbalizes understanding and is agreeable to treatment plan Mar, Other Back strain or sprain home care material was printed [employer] Other Evaluation note Note Date & Type Note Facility Evaluation note Diagnosis Polyarthralgia- Primary Pain in joint, multiple sites Morbid obesity (CMS/[facility]) Morbid obesity Dry skin dermatitis Contact dermatitis and other eczema due to other specified agent documented in this encounter [facility] Evaluation note Note Date & Type Note Facility Evaluation note No assessment information availa [facility] Work Phone: History general Narrative - Reported Note Date & Type Note Facility History general Narrative - Reported Type Medical History nexaplanon in arm Surgical History 2009 [employer] Other Summary Purpose Family History No Family History Records Found Relationship Condition Age at Onset Recorded Date/T ilan father Diabetes mellitus Unknown Advance Directives No Advanced Directives Records Found Advance Directive Response Recorded Date/ Time Advance Directives No April 01 10:29am Chief Complaint and Reason for Visit Chief Complaint Allergic reaction Additional Source Comments INFORMATION SOURCE (unrecogn ized section and content) DATE CREATED AUTHOR 06/30/2020 [facility] DATE CREATED AUTHOR AUTHOR'S ORGANIZ ATION 06/17/2024 [facility] EPIC REASON FOR VISIT (unrecogniz ed section and content) PAIN LEFT SHOULDER BLADE RAD IATING DOWN INTO LEFT ARM X 4 DAYS Care Teams (unrecognized sec tion and content) Team Status: Active Member Role Status Dates PHYSICIAN NO FAMILY Primary Care Provider Active Team Status: Inactive Member Role Status Dates PHYSICIAN NO FAMILY Primary Care Provider Active Start: April 01, 2024 End: April 01, 2024 Rhea Abdi APRN Attending Provider Active Start: April 01, 2024 End: April 01, 2024 Goals (unrecognized section and content) Goals may be documented in a n alternate section FOR RECORDS PERTAINING TO PATIENTS WHO ARE OR HAVE BEEN ENROLLED IN A CHEMICAL DEPENDENCY/SUBSTANCEABUSE PROGRAM, SOME INFORMATION MAY BE OMITTED. This clinical summary was aggregated from multiple sources. Caution should be exercised in using it in the provision of clinical care. This summary normalizes information from multiple sources, and as a consequence, information in this document may materially change the coding, format and clinical context of patient data. In addition, data may be omitted in some cases. CLINICAL DECISIONS SHOULD BE BASED ON THE PRIMARY CLINICAL RECORDS. [employer] [facility]. provides no warranty or guarantee of the accuracy or completeness of information in this document.
[2024-06-24 07:10] LABS: Age Gdln ACOG Testing Note (.); HPV Aptima Negative (Negative); IGP, Aptima HPV, rfx 16/18,45 Note (.)
== END 2024-06-18 19:06 | disposition home or self-care (01) ==
LOC: LAB 19:05
PROVIDERS: PCP Physician Assistant; Visit Provider Obstetrics & Gynecology
DX: Z01.419 Encounter for gynecological examination (general) (routine) without abnormal findings (principal)
CPT/HCPCS: 87624; 88175

== ENCOUNTER 2025-05-08 11:50 | Outpatient (OUT) | payer OTHER, SELFPAY ==
[2025-05-08 12:20] LABS: Hematocrit 39.0 % (36.0-48.0); Hemoglobin 12.8 g/dL (12.0-16.0); Immature Granulocytes Abs Auto 0.03 10^3/uL (0.00-0.03); Immature Granulocytes Pct Auto 0.3 % (0.0-0.5); Lymphocytes Absolute Auto 1.2 10^3/uL (1.2-3.8); Mean Corpuscular HGB Conc 32.8 g/dL (29.9-35.2); Mean Corpuscular Hemoglobin 27.7 pg (26.7-34.0); Mean Corpuscular Volume 84.4 fL (81.0-99.0); Platelet Count 306 10^3/uL (150-450); Red Blood Count 4.62 10^6/uL (4.20-5.40); White Blood Count 11.2 10^3/uL (4.0-11.0)
[2025-05-08 14:40] LABS: Cannabinoid Screen Urine NEGATIVE (NEGATIVE); Methamphetamines Screen Urine NEGATIVE (NEGATIVE); Tricyclic Antidepressant Urine NEGATIVE (NEGATIVE)
[2025-05-09 06:07] LABS: Rubella Antibodies, IgG 1.73 index (Immune >0.99)
[2025-05-09 13:10] LABS: Rapid Plasma Reagin, Quant Non Reactive titer (NonRea<1:1)
== END 2025-05-08 11:51 | disposition home or self-care (01) ==
LOC: LAB 11:50
PROVIDERS: PCP Physician Assistant; Visit Provider Obstetrics & Gynecology
DX: Z34.01 Encounter for supervision of normal first pregnancy, first trimester (principal); N92.6 Irregular menstruation, unspecified
CPT/HCPCS: 36415; 80307; 83036; 85025; 86592; 86762; 86803; 86850; 86900; 86901; 87086; 87340; 87389

== ENCOUNTER 2025-06-22 21:08 | Outpatient (REF) | payer OTHER, SELFPAY ==
--- OUTSIDE RECORDS SUMMARY | 2025-06-22 21:12 | XMS_ITS | CCD ---
Author Organization [facility] Care Team Providers Care Electrical Foreman Name Role Phone RICKI RODRIGUEZ Admitting Unavailable RICKI RODRIGUEZ Attending Unavailable REQUEST, NONE LISTED Primary Care Unavailable RICKI RODRIGUEZ Consulting Unavailable PRAVIN PALOMINO Consulting Unavailable RICKI RODRIGUEZ Admitting Unavailable RICKI RODRIGUEZ Attending Unavailable RICKI RODRIGUEZ Consulting Unavailable Shireen Fournier Unavailable Unavailable Primary Care Provider UnavailJyoti Pugh Primary Care Provider JYOTI LEGGETT Attending Unavailable JYOTI LEGGETT Attending Unavailable JYOTI LEGGETT Attending Unavailable LUZMARIA SOLARES Attending Unavailable LUZMARIA SOLARES Attending Unavailable Medications Current Medications Medication Drug [...] 1 tab po daily x 3 days. MV-Min-Fe Fum-FA-DHA ( 1 PO) (11 sources) MV-Min- Fe Fum-FA-DHA ( 1 PO) Take by mouth Active Completed/Discontinued Medications Medication Drug Class(es) Dates Sig (Normalized) Sig (Original) cephalexin 500 mg oral capsule (6 sources) Cephalosporin Antibacterial Start: 06-16-2024 End: 11-12-2024 take 1 capsule by mouth in the morning cephalexin (Keflex) 500 MG capsule Take 500 mg by mouth in the morning and 500 mg before bedtime. 06/16/2024 11/12/2024 Discontinued (Other) Ketorolac (1 source) Nonsteroidal Anti-inflammatory Drug, Cyclooxygenase Inhibitor Start: 03-14-2022 Toradol per 15 mg Mar, 30 mg 24 hr metFORMIN hydrochloride 500 mg extended release oral tablet (6 sources) Biguanide Start: 06-18-2024 End: 06-18-2025 take 1 tablet by mouth every twenty-four hours at mealtime metFORMIN XR (Glucophage-XR) 500 MG 24 hr tablet Indications: PCOS (polycystic ovarian syndrome) , Abnormal uterine bleeding (AUB) Take 1 tablet (500 mg) by mouth in the evening. Take with meals Do not crush, chew, or split. 30 tablet 11 06/18/2024 11/12/2024 Discontinued (Other) triamcinolone acetonide 40 mg/ml injectable suspension (1 source) Corticosteroid Start: 03-14-2022 Kenalog-40 Mar, 40 mg Problems Active Problems Problem Classification Problem Date Documented Date Episodic/Chronic Abdominal pain (2 sources) Lower abdominal pain; Translations: [Lower abdominal pain, unspecified] 06-16-2024 Episodic Fluid and electrolyte disorders (2 sources) Hypokalemia; Translations: [Hypokalemia] 06-16-2024 Episodic Immunizations and screening for infectious disease (1 source) Encounter for screening for human papillomavirus (HPV); Translations: [ENC SCREENING HUMAN PAPILLOMAVIRUS] Onset: 06-30-2020 Episodic Menstrual disorders (19 sources) Dysmenorrhea; Translations: [Dysmenorrhea, unspecified] Onset: 06-11-2024 06-16-2024 Chronic Other complications of (2 sources) Multigravida of advanced maternal age; Translations: [Supervision of elderly multigravida, second trimester] 06-22-2025 Episodic Other endocrine disorders (2 sources) Polycystic ovary syndrome; Translations: [Polycystic ovarian syndrome] 06-18-2024 Chronic Other female genital disorders (2 sources) Abnormal uterine bleeding; Translations: [Abnormal uterine and vaginal bleeding, unspecified] 06-18-2024 Chronic Other non-traumatic joint disorders (2 sources) Bilateral wrist pain; Translations: [Pain in right wrist] 11-12-2024 Episodic Other nutritional; endocrine; and metabolic disorders (4 sources) Morbid obesity; Translations: [Morbid (severe) obesity due to excess calories] Onset: 11-13-2023 11-13-2023 Chronic Other nutritional; endocrine; and metabolic disorders (2 sources) Hypomagnesemia; Translations: [Hypomagnesemia] 06-16-2024 Chronic Other nutritional; endocrine; and metabolic disorders (15 sources) Obesity caused by energy imbalance; Translations: [Class 2 obesity due to excess calories without serious comorbidity with body mass index (BMI) of 37.0 to 37.9 in adult] Onset: 11-12-2024 11-12-2024 Chronic Other and delivery including normal (4 sources) ; Translations: [Encounter for supervision of normal , unspecified, unspecified trimester] 04-30-2025 Episodic Other screening for suspected conditions (not mental disorders or infectious disease) (2 sources) Endometrium thickened; Translations: [Abnormal findings on diagnostic imaging of other specified body structures] 06-16-2024 Chronic Other screening for suspected conditions (not mental disorders or infectious disease) (6 sources) Encounter for screening for malignant neoplasm of cervix; Translations: [Patient encounter status] Onset: 06-23-2020 06-22-2025 Episodic Residual codes; unclassified (2 sources) Gestation period, 12 weeks; Translations: [12 weeks gestation of ] 05-27-2025 Episodic Residual codes; unclassified (4 sources) Gestation period, 16 weeks; Translations: [16 weeks gestation of ] Onset: 06-22-2025 06-22-2025 Episodic Spondylosis; intervertebral disc disorders; other back problems (3 sources) Muscle spasm of back; Translations: [Pain in the coccyx] Onset: 03-14-2022 Resolved: 03-14-2022 Episodic Sprains and strains (2 sources) Strain of muscle and/or tendon of lower leg; Translations: [Strain of unspecified muscle and tendon at ankle and foot level, left foot, initial encounter] 05-08-2025 Episodic Past or Other Problems Problem Classification Problem Date Documented Da te Episodic/Chronic Other aftercare (4 sources) Other detention (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; Translations: [OTH [facility] CURRENT DRUG THERAPY] Onset: 09-22-2019 Episodic Other bone disease and musculoskeletal deformities (20 sources) Osteopenia; Translations: [Other specified disorders of bone density and structure, left thigh] Onset: 11-13-2023 11-13-2023 Episodic Other non-traumatic joint disorders (20 sources) Multiple joint pain; Translations: [Pain in unspecified joint] Onset: 11-13-2023 11-13-2023 Episodic Other nutritional; endocrine; and metabolic disorders (20 sources) Obese class I; Translations: [Obesity, unspecified] Onset: 11-13-2023 Resolved: 11-12-2024 04-09-2024 Chronic Other skin disorders (20 sources) Dry skin dermatitis; Translations: [Xerosis cutis] Onset: 11-13-2023 11-13-2023 Episodic Residual codes; unclassified (1 source) Other specified health status; Translations: [OTHER SPECIFIED HEALTH STATUS] Onset: 10-02-2019 Episodic Viral infection (20 sources) Human papilloma virus infection; Translations: [Papillomavirus as the cause of diseases classified elsewhere] Onset: 11-13-2023 11-13-2023 Episodic Results Test Name Value Interpretation Reference Range Facility Urinalysis macro (dipstick) panel (U)on 06-22-2025 Bilirubin, UA Negative Negative - 4(70) +++ mg/dL [facility] Blood, UA Positive Negative - 50 Malvin/mcL [facility] Comment on above: 1+ Clarity, UA Cloudy [facility] Color, UA Yellow [facility] Glucose, UA Negative Negative - 1999(110) ++++ mg/dL [facility] Interpretation and review of laboratory results Abnormal [facility] Ketones, UA Positive Negative - 160(16) ++++ mg/dL [facility] Comment on above: 1+ Leukocytes, UA 2+ Negative - 500+++ Dionte/mcL [facility] Nitrite, UA Negative Negative - Positive [facility] pH, UA 5.5 5 - 9 [facility] Protein, UA 1+ Negative - 1999(20) ++++ mg/dL [facility] Spec Grav, UA 1.03 1 - 1.03 [facility] Urobilinogen, UA 0.2 0.2 - 12 mg/dL [facility] Urinalysis macro (dipstick) panel (U)on 05-27-2025 Bilirubin, UA Negative Negative - 4(70) +++ mg/dL [facility] Blood, UA Positive Negative - 50 Malvin/mcL [facility] Comment on above: 2+ Clarity, UA Clear [facility] Color, UA Yellow [facility] Glucose, UA Negative Negative - 1999(110) ++++ mg/dL [facility] Interpretation and review of laboratory results Abnormal [facility] Ketones, UA Positive Negative - 160(16) ++++ mg/dL [facility] Comment on above: Trace Leukocytes, UA Positive Negative - 500+++ Dionte/mcL [facility] Comment on above: 3+ Nitrite, UA Negative Negative - Positive [facility] pH, UA 6 5 - 9 [facility] Protein, UA Positive Negative - 1999(20) ++++ mg/dL [facility] Comment on above: trace Spec Grav, UA 1.03 1 - 1.03 [facility] Urobilinogen, UA 0.2 0.2 - 12 mg/dL [facility] ALL CBC WITH AUTO DIFFon BASOPHILS ABSOLUTE AUTO 0 [facility] Basophils/100 WBC (Bld) 0.4 % 0.2 - 2.0 % [facility] Eosinophils/100 WBC (Bld) 1.4 % 0.9 - 7.0 % [facility] Erythrocyte distribution width (RBC) [Ratio] 13.4 % 11.0 - 15.0 % [facility] Hematocrit (Bld) [Volume fraction] 39 % 36.0 - 48.0 % [facility] Hemoglobin (Bld) [Mass/Vol] 12.8 g/dL 12.0 - 16.0 g/dL [facility] IMMATURE GRANULOCYTES ABS AUTO 0.03 [facility] Immature granulocytes/100 WBC (Bld) 0.3 % 0.0 - 0.5 % [facility] Interpretation and review of laboratory results Abnormal [facility] LYMPHOCYTES ABSOLUTE AUTO 1.2 [facility] Lymphocytes/100 WBC (Bld) 10.9 % Low 20.5 - 60.0 % [facility] MCH (RBC) [Entitic mass] 27.7 pg 26.7 - 34.0 pg [facility] MCHC (RBC) [Mass/Vol] 32.8 g/dL 29.9 - 35.2 g/dL [facility] MCV (RBC) [Entitic vol] 84.4 fL 81.0 - 99.0 fL [facility] MONOCYTES ABSOLUTE AUTO 0.7 [facility] Monocytes/100 WBC (Bld) 6.3 % 1.7 - 12.0 % [facility] NEUTROPHILS ABSOLUTE AUTO 9.1 High [facility] Neutrophils/100 WBC (Bld) 80.7 % High 43.0 - 75.0 % [facility] Platelet mean volume (Bld) [Entitic vol] 9.6 fL 9.5 - 13.5 [facility]L [facility] # 0.2 [facility] TB PLT 306 [facility] TBH RBC 4.62 [facility] TB WBC 11.2 High [facility] HCG ( test) Ql (U)o n 04-30-2025 Interpretation and review of laboratory results Abnormal [facility] Preg Test, Ur Positive Negative [facility] care [facility] US OB TRANSVAGINALon 025 US OB TRANSVAGINAL EXAM: US OB TRANSVAGINAL HISTORY: Dating. COMPARISON: None available. TECHNIQUE: Two-dimensional transvaginal grayscale ultrasound imaging of the pelvis was performed. Color Doppler evaluation of the ovaries was also performed. FINDINGS: The uterus demonstrates a normal homogeneous echotexture. The cervix measures 4.2 cm in length and the cervical os is closed. The right ovary measures 3.2 x 1.4 x 1.8 cm and demonstrates a normal echotexture. There is normal color Doppler flow. The left ovary is not visualized due to overlying bowel gas. No fluid is present within the cul-de-sac. There is a single, live intrauterine gestation identified with a heart rate of 167 beats per minute and a crown-rump length measurement of 1.6 cm, correlating to a gestational age of 8 weeks 0 days (+/- 5 days). There is no subchorionic hemorrhage visualized. A yolk sac is visualized. IMPRESSION: 1. Single, live intrauterine gestation 8 weeks, 5 days by LMP. Today's ultrasound measurements correlate with a gestational age of 8 weeks 0 days (+/- 5 days). JOSE JUAN by today's ultrasound is 12/10/2025. 2. Normal color Doppler evaluation of the right ovary, the left ovary was not visualized. Interpreted by: Electronically signed by CANDIDA GODWIN II, MD, PHD at 01-May-2025 08:25:50 AM [facility] [employer] Normal Not Available Comment on above: Order Comment: US OB TRANSVAGINAL No LMP recorded. Urinalysis macro (dipstick) panel (U)on 04-30-2025 Bilirubin, UA Negative Negative - 4(70) +++ mg/dL [facility] Blood, UA Positive Negative - 50 Malvin/mcL [facility] Comment on above: Trace Clarity, UA Clear [facility] Color, UA Yellow [facility] Glucose, UA Negative Negative - 1999(110) ++++ mg/dL [facility] Interpretation and review of laboratory results Abnormal [facility] Ketones, UA Positive Negative - 160(16) ++++ mg/dL [facility] Comment on above: Trace Leukocytes, UA Moderate Negative - 500+++ Dionte/mcL [facility] Nitrite, UA Negative Negative - Positive [facility] pH, UA 5.5 5 - 9 [facility] Protein, UA Trace Negative - 1999(20) ++++ mg/dL [facility] Spec Grav, UA 1.03 1 - 1.03 [facility] Urobilinogen, UA 0.2 0.2 - 12 mg/dL [facility] IGP,APTIMA HPV,AGE GDLNon AGE GDLN ACOG TESTING Note . [facility] Comment on above: TESTS RESULT FLAG U NITS REF RANGE LAB Clinician Provided Cytology Information Source.............Cervix;Endocervix No. of containers..01 ThinPrep Vial Age Algo ACOG Nicol... FLAG LEGEND: L-Low Normal,H-High Normal,LL-Alert Low,HH-Alert High <-Panic Low,>-Panic High,A-Abnormal,AA-Critical Abnormal Performed at: 01 =[address] [place] [address] Tonya Rockwell MD, HPV APTIMA Negative Negative [facility] [employer] [facility] Comment on above: This nucleic acid am plification test detects fourteen high- risk HPV types (16,18,31,33,35,39,45,51,52,56,58,59,66,68) without differentiation. Performed at: =[address] [id number] Chairman Ceo: Tonya Rockwell MD, Phone: [phone] Performed at: WB - [facility] [address], [place] [id number] Chairman Ceo: Tonya Rockwell MD, Phone: [phone] IGP, APTIMA HPV, RFX 16/18,45 Note . [facility] Comment on above: TESTS RESULT FLAG UN ITS REF RANGE LAB DIAGNOSIS: 02 NEGATIVE FOR INTRAEPITHELIAL LESION OR MALIGNANCY. Specimen adequacy: 02 Satisfactory for evaluation. Endocervical and/or squamous metaplastic cells (endocervical component) are present. Performed by: Bobby Quiroz, Fight Manager (ASCP) . 02 Note: Note 02 The Pap smear is a screening test designed to aid in the detection of premalignant and malignant conditions of the uterine cervix. It is not a diagnostic procedure and should not be used as the sole means of detecting cervical cancer. Both false-positive and false-negative reports do occur. Test Methodology: Note 02 This liquid based ThinPrep(R) pap test was screened with the use of an image guided system. HPV Genotype Reflex Note 02 Criteria not met, HPV Genotype not performed. FLAG LEGEND: L-Low Normal,H-High Normal,LL-Alert Low,HH-Alert High <-Panic Low,>-Panic High,A-Abnormal,AA-Critical Abnormal Performed at: 02 WB [facility] [address] [place] [address] Tonya Rockwell MD, BRUSH-SPATULA CERVIX ENDOCERVIX [facility] PAP ACOG PANEL 2: 30 to 65on 06-30-2020 Age Gdln ACOG Testing 30-65 Normal [facility] Comment on above: Performed By: #### [id number] #### [facility] [address] [place] [address] Cindy Montes DIAGNOSIS: Comment Normal [facility] Comment on above: Result Comment: NEGA TIVE FOR INTRAEPITHELIAL LESION OR MALIGNANCY. Performed at: WB Performed By: #### [id number] #### [facility] [address] [place] [address] Cindy Montes HPV Aptima Negative Normal Negative [facility] Comment on above: Result Comment: This test was developed and its performance characteristics determined by [email or web address]. It has not been cleared or approved by the Food and Drug Administration. This nucleic acid amplification test detects fourteen high-risk HPV types (16,18,31,33,35,39,45,51,52,56,58,59,66,68) without differentiation. Performed at: =G Performed By: #### [id number] #### [facility] [address] [place] [address] Cindy Montes Methodology: Comment Normal [facility] Comment on above: Result Comment: This liquid based SurePath(R) pap test was screened with the assistance of an image guided system. Performed at: WB Performed By: #### [id number] #### [facility] [address] [place] [address] Cindy Montes Note: Comment Normal [facility] Comment on above: Result Comment: The Pap smear is a screening test designed to aid in the detection of premalignant and malignant conditions of the uterine cervix. It is not a diagnostic procedure and should not be used as the sole means of detecting cervical cancer. Both false-positive and false-negative reports do occur. . Performed at: WB Performed By: #### [id number] #### [facility] [address] [place] [address] Cindy Montes Performed by: Comment Normal [facility] Comment on above: Result Comment: Mery Mi, Fight Manager (ASCP) Performed at: WB Performed By: #### [id number] #### [facility] [address] [id number] Cindy Montes Specimen adequacy: Comment Normal [facility] Comment on above: Result Comment: Sati sfactory for evaluation. Endocervical and/or squamous metaplastic cells (endocervical component) are present. Performed at: WB Performed By: #### [id number] #### [facility] [address] [id number] Cindy Montes . . Normal [facility] Comment on above: Result Comment: Perf ormed at: WB Performed By: #### [id number] #### [facility] [address] [id number] Cindy Montes XR DEXA BONE DENSITYon 09-22 XR DEXA BONE DENSITY Patient: BRAEDEN MCCULLOUGH Exam Date: 09/22/2019 : 1990 Gender:F Ordering : DR RICKI RODRIGUEZ . Admission #: [id number] Family : Order #: [id number] CLICK HERE TO VIEW EXAM RADIOLOGY REPORT [...] Pravin Palomino M.D. on 09/22/2019 at 10:54 [facility] Vital Signs Date Time Vital Sign Value Performing Clinician Facility 06-22-2025 15:47-0400 Body mass index (BMI) [Ratio] 39.16 kg/m2 Suzi Iniguez PA Work Phone: [facility] 06-22-2025 15:47-0400 Body weight 113.4 kg Suzi Hira PA Work Phone: [facility] 06-22-2025 15:47-0400 Diastolic blood pressure 72 mm[Hg] Suzi Verona PA Work Phone: [facility] 06-22-2025 15:47-0400 Systolic blood pressure 116 mm[Hg] Suzi Hira PA Work Phone: [facility] 05-27-2025 16:07-0400 Body mass index (BMI) [Ratio] 38.65 kg/m2 Luzmaria Sujatha DO Work Phone: [facility] 05-27-2025 16:07-0400 Body weight 111.92 kg Luzmaria Sujatha DO Work Phone: [facility] 05-27-2025 16:07-0400 Diastolic blood pressure 74 mm[Hg] Luzmaria Sujatha DO Work Phone: [facility] 05-27-2025 16:07-0400 Systolic blood pressure 120 mm[Hg] Luzmaria Sujatha DO Work Phone: [facility] 05-08-2025 10:33-0400 Body height 170.2 cm Jyoti Leggett PA Work Phone: [facility] 05-08-2025 10:33-0400 Body mass index (BMI) [Ratio] 38.22 kg/m2 Jyoti Leggett PA Work Phone: [facility] 05-08-2025 10:33-0400 Body weight 110.68 kg Jyoti Leggett PA Work Phone: [facility] 05-08-2025 10:33-0400 Diastolic blood pressure 76 mm[Hg] Jyoti Hemmer PA Work Phone: [facility] 05-08-2025 10:33-0400 Heart rate 84 /min Jyoti Hemmer PA Work Phone: [facility] 05-08-2025 10:33-0400 Respiratory rate 16 /min Jyoti Hemmer PA Work Phone: [facility] 05-08-2025 10:33-0400 SaO2% (BldA) [Mass fraction] 98 % Jyoti Hemmer PA Work Phone: [facility] 05-08-2025 10:33-0400 Systolic blood pressure 108 mm[Hg] Jyoti Hemmer PA Work Phone: [facility] 04-30-2025 14:28-0400 Body mass index (BMI) [Ratio] 38.61 kg/m2 [facility] 04-30-2025 14:28-0400 Body weight 111.81 kg [facility] 04-30-2025 14:28-0400 Diastolic blood pressure 76 mm[Hg] [facility] 04-30-2025 14:28-0400 Systolic blood pressure 110 mm[Hg] [facility] 11-12-2024 15:59-0500 Body height 170.2 cm Jyoti Hemmer PA Work Phone: [facility] 11-12-2024 15:59-0500 Body mass index (BMI) [Ratio] 37.24 kg/m2 Jyoti Hemmer PA Work Phone: [facility] 11-12-2024 15:59-0500 Body weight 107.86 kg Jyoti Hemmer PA Work Phone: [facility] 11-12-2024 15:59-0500 Diastolic blood pressure 68 mm[Hg] Jyoti Hemmer PA Work Phone: [facility] 11-12-2024 15:59-0500 Heart rate 83 /min Jyoti Hemmer PA Work Phone: [facility] 11-12-2024 15:59-0500 Respiratory rate 16 /min Jyoti Hemmer PA Work Phone: [facility] 11-12-2024 15:59-0500 SaO2% (BldA) [Mass fraction] 98 % Jyoti Hemmer PA Work Phone: [facility] 11-12-2024 15:59-0500 Systolic blood pressure 110 mm[Hg] Jyoti Hemmer PA Work Phone: [facility] 06-18-2024 15:38-0400 Body height 170.2 cm Luzmaria Sujatha DO Work Phone: [facility] 06-18-2024 15:38-0400 Body mass index (BMI) [Ratio] 34.63 kg/m2 Luzmaria Sujatha DO Work Phone: [facility] 06-18-2024 15:38-0400 Body weight 100.3 kg Luzmaria Sujatha DO Work Phone: [facility] 06-18-2024 15:38-0400 Diastolic blood pressure 78 mm[Hg] Luzmaria Sujatha DO Work Phone: [facility] 06-18-2024 15:38-0400 Systolic blood pressure 120 mm[Hg] Luzmaria Sujatha DO Work Phone: [facility] 06-16-2024 13:33-0400 Body height 170.2 cm Jyoti Hemmer PA Work Phone: [facility] 06-16-2024 13:33-0400 Body mass index (BMI) [Ratio] 34.99 kg/m2 Jyoti Hemmer PA Work Phone: [facility] 06-16-2024 13:33-0400 Body weight 101.33 kg Jyoti Hemmer PA Work Phone: [facility] 06-16-2024 13:33-0400 Diastolic blood pressure 86 mm[Hg] Jyoti Hemmer PA Work Phone: [facility] 06-16-2024 13:33-0400 Heart rate 91 /min Jyoti Hemmer PA Work Phone: [facility] 06-16-2024 13:33-0400 Respiratory rate 16 /min Jyoti Hemmer PA Work Phone: [facility] 06-16-2024 13:33-0400 SaO2% (BldA) [Mass fraction] 99 % Jyoti Hemmer PA Work Phone: [facility] 06-16-2024 13:33-0400 Systolic blood pressure 126 mm[Hg] Jyoti Hemmer PA Work Phone: [facility] 04-01-2024 10:38-0400 Body height 170.18 cm [facility] 04-01-2024 10:38-0400 Body mass index (BMI) [Ratio] 36.6 kg/m2 [facility] 04-01-2024 10:38-0400 Body temperature 97.3 [degF] [facility] 04-01-2024 10:38-0400 Body weight 106.25 kg [facility] 04-01-2024 10:38-0400 Diastolic blood pressure 89 mm[Hg] [facility] 04-01-2024 10:38-0400 Heart rate 66 /min [facility] 04-01-2024 10:38-0400 Respiratory rate 16 /min [facility] 04-01-2024 10:38-0400 SaO2% (BldA) [Mass fraction] 98 % [facility] 04-01-2024 10:38-0400 Systolic blood pressure 124 mm[Hg] [facility] 11-13-2023 15:56-0500 Body mass index (BMI) [Ratio] 40.1 kg/m2 Jyoti Hemmer PA Work Phone: [facility] 11-13-2023 15:56-0500 Body weight 116.12 kg Yjoti Hemmer PA Work Phone: [facility] 11-13-2023 15:56-0500 Diastolic blood pressure 72 mm[Hg] Jyoti Hemmer PA Work Phone: [facility] 11-13-2023 15:56-0500 Heart rate 81 /min Jyoti Hemmer PA Work Phone: [facility] [employer] 11-13-2023 15:56-0500 Respiratory rate 16 /min Jyoti Hemmer PA Work Phone: [facility] [employer] 11-13-2023 15:56-0500 SaO2% (BldA) [Mass fraction] 99 % Jyoti Hemmer PA Work Phone: [facility] [employer] 11-13-2023 15:56-0500 Systolic blood pressure 106 mm[Hg] Jyoti Hemmer PA Work Phone: [facility] [employer] 03-14-2022 18:35-0400 Body height 170.18 cm Shireen Fournier Other [employer] Other 03-14-2022 18:35-0400 Body mass index (BMI) [Ratio] 41.97 kg/m2 Shireen Fournier Other [employer] Other 03-14-2022 18:35-0400 Body temperature 98 [degF] Hsireen Fournier Other [employer] Other 03-14-2022 18:35-0400 Body weight 121.56 kg Shireen Fournier Other [employer] Other 03-14-2022 18:35-0400 Diastolic blood pressure 76 mm[Hg] Shireen Fournier Other [employer] Other 03-14-2022 18:35-0400 Respiratory rate 18 /min Shireen Fournier Other [employer] Other 03-14-2022 18:35-0400 SaO2% (BldA) [Mass fraction] 98 % Shireen Fournier Other [employer] Other 03-14-2022 18:35-0400 Systolic blood pressure 120 mm[Hg] Shireen Fournier Other [place] [employer] Other Encounters Encounter Date Encounter Type Care Provider Facility Start: 06-22-2025 End: 06-22-2025 Patient encounter procedure Suzi BROWNING Work Phone: [facility] Start: 06-22-2025 End: 06-22-2025 Periodic preventive med est patient 18-39 yrs Suzi BROWNING Work Phone: [facility] Comment on above: 16 weeks gestation o f ([facility]); Well woman exam with routine gynecological exam; Screening, , for anatomic survey ([facility]); AMA (advanced maternal age) multigravida 35+, second trimester ([facility]) Start: 06-22-2025 End: 06-22-2025 Bamboo flowsheet Suzi BROWNING Work Phone: [facility] Start: 06-22-2025 End: 06-22-2025 Bamboo flowsheet Suzi BROWNING Work Phone: [facility] Start: 05-27-2025 End: 05-27-2025 ambulatory LUZMARIA SUJATHA Not Available Start: 05-27-2025 End: 05-27-2025 flow sheet Luzmaria Sujatha DO Work Phone: [facility] Comment on above: First trimester preg steven ([facility]); 12 weeks gestation of ([facility]) Start: 05-27-2025 End: 05-27-2025 Bamboo flowsheet Luzmaria Sujatha DO Work Phone: [facility] Start: 05-27-2025 End: 05-27-2025 Bamboo flowsheet Luzmaria Sujatha DO Work Phone: [facility] Start: 05-08-2025 End: 05-08-2025 Bamboo flowsheet Jyoti BROWNING Work Phone: [facility] [facility] Start: 05-08-2025 End: 05-08-2025 Bamboo flowsheet Jyoti Bryan Paolo PA Work Phone: [facility] [place] [facility] Start: 05-08-2025 End: 05-08-2025 Clinisync Result Encounter Luzmaria Sujatha DO Work Phone: [facility] Unsolicited Start: 05-08-2025 End: 05-08-2025 Office outpatient visit 15 minutes Jyoti Bryan Paolo PA Work Phone: [facility] [place] [facility] Comment on above: Strain of left ankle , initial encounter (Primary Dx) Start: 05-08-2025 End: 05-08-2025 ambulatory JYOTI IZAGUIRREMARCIA Not Available Start: 04-30-2025 End: 04-30-2025 Office outpatient visit 5 minutes Sujatha Nurse [facility] Comment on above: GA: 8w5d Start: 04-30-2025 End: 04-30-2025 ambulatory JYOTI LEGGETT Not Available Start: 11-12-2024 End: 11-12-2024 Office outpatient visit 25 minutes Jyoti Randi Paolo PA Work Phone: [facility] Comment on above: Dysmenorrhea (Primar y Dx); Bilateral wrist pain; Class 2 obesity due to excess calories without serious comorbidity with body mass index (BMI) of 37.0 to 37.9 in adult; Tail bone pain Start: 11-12-2024 End: 11-12-2024 ambulatory JYOTI IZAGUIRREMARCIA Not Available Start: 11-12-2024 End: 11-12-2024 Bamboo flowsheet Jyoti Randi Paolo PA Work Phone: [facility] Start: 11-12-2024 End: 11-12-2024 Bamboo flowsheet Jyoti Bryan Paolo PA Work Phone: [facility] Start: 06-18-2024 End: 06-18-2024 Patient encounter procedure Luzmaria Sujatha DO Work Phone: [facility] Work Phone: Start: 06-18-2024 End: 06-18-2024 Periodic preventive med est patient 18-39 yrs Luzmaria Solares DO Work Phone: [facility] Comment on above: Well woman exam with routine gynecological exam; PCOS (polycystic ovarian syndrome); Abnormal uterine bleeding (AUB) Start: 06-18-2024 End: 06-18-2024 ambulatory LUZMARIA SOLARES Not Available Start: 06-18-2024 End: 06-24-2024 Clinisync Result Encounter Generic External Data Provider [facility] Unsolicited Start: 06-18-2024 End: 06-24-2024 Clinisync Result Encounter Generic External Data Provider [facility] Unsolicited Start: 06-16-2024 End: 06-16-2024 Bamboo flowsheet Jyoti BROWNING Work Phone: [facility] Start: 06-16-2024 End: 06-16-2024 Bamboo flowsheet Jyoti BORWNING Work Phone: [facility] Start: 06-16-2024 End: 06-16-2024 Office outpatient visit 25 minutes Jyoti BROWNING Work Phone: [facility] Comment on above: Endometrial thickeni ng on ultrasound (Primary Dx); Lower abdominal pain; Hypokalemia; Hypomagnesemia; Dysmenorrhea Start: 06-16-2024 End: 06-16-2024 ambulatory JYOTI LEGGETT Not Available Start: 06-11-2024 End: 06-14-2024 Clinisync Result Encounter Generic External Data Provider [facility] Unsolicited Start: 06-11-2024 End: 06-14-2024 Clinisync Result Encounter Generic External Data Provider [facility] Unsolicited Start: 04-01-2024 End: 04-01-2024 ambulatory [facility] Work Phone: Start: 04-01-2024 End: 04-01-2024 Patient encounter procedure [facility] [place] Work Phone: Start: 11-13-2023 End: 11-13-2023 Office outpatient visit 25 minutes Jyoti Leggett PA Work Phone: [facility] Comment on above: Polyarthralgia (Prim gato Dx); Morbid obesity (CMS/HCC); Dry skin dermatitis Start: 11-13-2023 Bamboo flowsheet Jyoti Bryan Hemme r PA Work Phone: [facility] Start: 11-13-2023 Bamboo flowsheet Jyoti Bryan Hemme r PA Work Phone: [facility] Start: 11-12-2023 Chart abstracting Jyoti Patel er PA Work Phone: [facility] Start: 03-14-2022 End: 03-14-2022 ambulatory Shireen Fournier Other [employer] Other Start: 03-14-2022 Office outpatient vi sit 25 minutes Shireen Fourneir [facility] [place] Start: 06-23-2020 End: 06-23-2020 Patient encounter procedure RICKI RODRIGUEZ Facility:[facility] Start: 09-22-2019 End: 09-23-2019 Patient encounter procedure RICKI RODRIGUEZ Facility: Procedures Date Procedure Procedure Detail Performing Clinician Start: 06-22-2025 Urnls dip stick/tabl et rgnt non-auto w/o micrscp Suzi BROWNING Work Phone: Start: 05-27-2025 Urnls dip stick/tabl et rgnt non-auto w/o micrscp Luzmaria Sujatha DO Work Phone: Start: 05-08-2025 ALL CBC WITH AUTO DIFF Generic External Data Provider Start: 04-30-2025 End: 04-30-2025 Urnls dip stick/tablet rgnt non-auto w/o micrscp Luzmaria Sujatha DO Work Phone: Start: 06-18-2024 IGP,APTIMA HPV,AGE GDLN Luzmaria Sujatha DO Work Phone: Start: 06-11-2024 Bacteria identified in Urine by Culture Generic External Data Provider Plan of Treatment Date Care Activity Detail Author Start: 07-22-2025 End: 07-22-2025 Professional / ancillary services management 07/22/2025 1:30 PM EDT Ancillary Procedure PHIL UNDERWOOD [address] [place] [id number] PHIL UNDERWOOD Start: 06-22-2025 End: 06-22-2025 Patient encounter procedure PHIL UNDERWOOD Comment on above: Arrived Start: 06-22-2025 End: 09-21-2025 Alpha fetoprotein, maternal Alpha fetoprotein, maternal Lab Routine 16 weeks gestation of ([facility]) AMA (advanced maternal age) multigravida 35+, second trimester ([facility]) Expected: 06/22/2025 (Approximate), Expires: 09/21/2025 [facility] Comment on above: Expected: 06/22/2025 (Approximate), Expires: 09/21/2025 Start: 06-22-2025 End: 09-21-2025 US for US OB 14+ weeks anatomy scan Imaging Routine Screening, , for anatomic survey ([facility]) Expected: 06/22/2025, Expires: 09/21/2025 [facility] Comment on above: Expected: 06/22/2025 , Expires: 09/21/2025 Start: 06-01-2025 Influenza vaccination Influenza Vacc ine (#1) [facility] Start: 05-27-2025 End: 05-27-2025 Patient encounter procedure 05/27/2025 3:50 PM EDT Routine PHIL UNDERWOOD [address] [place] [phone] Luzmaria Solares DO [address] [place] [address] PHIL UNDERWOOD Start: 05-08-2025 End: 05-08-2025 Patient encounter procedure 05/08/2025 10:30 AM EDT Office Visit [facility] [address] [place] [address] Jyoti Leggett PA [address] [facility] [address] [place] [address] Arrived [facility] [place] [facility] Comment on above: Arrived Start: 04-30-2025 End: 04-30-2026 ABO/Rh ABO/Rh Lab Routine Missed menses , unspecified gestational age ([facility]) Expected: 04/30/2025 (Approximate), Expires: 04/30/2026 [facility] Comment on above: Expected: 04/30/2025 (Approximate), Expires: 04/30/2026 Start: 04-30-2025 End: 04-30-2026 Blood type and Indirect antibody screen panel - Blood Type and screen Lab Routine Missed menses , unspecified gestational age ([facility]) Expected: 04/30/2025 (Approximate), Expires: 04/30/2026 [facility] Work Phone: Comment on above: Expected: 04/30/2025 (Approximate), Expires: 04/30/2026 Start: 04-30-2025 End: 04-30-2026 Drugs of abuse panel - Urine by Screen method Rapid drug screen, urine Lab Routine , unspecified gestational age ([facility]) Encounter for supervision of normal first in first trimester ([facility]) Expected: 04/30/2025 (Approximate), Expires: 04/30/2026 [facility] Comment on above: Expected: 04/30/2025 (Approximate), Expires: 04/30/2026 Start: 11-12-2024 End: 11-12-2024 Patient encounter procedure [facility] Comment on above: Arrived Start: 06-18-2024 End: 06-18-2024 Patient encounter procedure 06/18/2024 3:30 PM EDT Office Visit [facility] [address] [place] [phone] Luzmaria Solares DO [address] [place] [address] [facility] Start: 06-18-2024 End: 06-18-2025 Antimullerian hormone (AMH) Antimullerian hormone (AMH) Lab Routine PCOS (polycystic ovarian syndrome) Abnormal uterine bleeding (AUB) Expected: 06/18/2024 (Approximate), Expires: 06/18/2025 [facility] Comment on above: Expected: 06/18/2024 (Approximate), Expires: 06/18/2025 Start: 06-18-2024 End: 06-18-2025 DHEA DHEA Lab Routine PCOS (polycystic ovarian syndrome) Expected: 06/18/2024 (Approximate), Expires: 06/18/2025 [facility] Comment on above: Expected: 06/18/2024 (Approximate), Expires: 06/18/2025 Start: 06-16-2024 End: 06-16-2025 Basic metabolic 1998 panel - Serum or Plasma Basic metabolic panel Lab Routine Hypokalemia Expected: 06/16/2024 (Approximate), Expires: 06/16/2025 [facility] Work Phone: Comment on above: Expected: 06/16/2024 (Approximate), Expires: 06/16/2025 Start: 06-16-2024 End: 06-16-2025 Magnesium [Mass/volume] in Serum or Plasma Magnesium Lab Routine Hypomagnesemia Expected: 06/16/2024 (Approximate), Expires: 06/16/2025 [facility] Comment on above: Expected: 06/16/2024 (Approximate), Expires: 06/16/2025 Start: 06-16-2024 End: 06-16-2024 Patient encounter procedure [facility] Comment on above: Arrived Start: 06-01-2024 Influenza vaccination Influenza Vacc ine (#1) [facility] Start: 03-30-2024 Influenza vaccination Influenza Vacc ine (#1) [facility] Comment on above: Postponed from 06/01 (Patient Refused) Start: 02-11-2024 End: 02-11-2024 Patient encounter procedure 02/11/2024 4:00 PM EDT Office Visit [facility] [address] [place] [address] [place] [phone] Jyoti Leggett PA [address] [place] [address] [place] [address] [facility] Start: 11-13-2023 End: 11-13-2023 Patient encounter procedure [facility] Comment on above: Arrived Start: 2018 Screening for malign ant neoplasm of cervix [facility] Start: 2009 Screening for malign ant neoplasm of cervix Pap Smear [facility] Bacteria identified in Urine by Culture URINE CULTURE, ROUTINE Lab Routine 06/11/2024 8:15 PM EDT [facility] Bacteria identified in Urine by Culture Urine culture Microbiology Routine Missed menses Ordered: 04/30/2025 [facility] Comment on above: Ordered: 04/30/2025 CBC W Auto Different ial panel - Blood CBC and differential Lab Routine PCOS (polycystic ovarian syndrome) Ordered: 06/18/2024 [facility] Comment on above: Ordered: 06/18/2024 CBC W Auto Different ial panel - Blood CBC and differential Lab Routine Missed menses , unspecified gestational age ([facility]) Ordered: 04/30/2025 [facility] Comment on above: Ordered: 04/30/2025 CHLAMYDIA TRACHOMATI S (GENITO/STI) CHLAMYDIA TRACHOMATIS (GENITO/STI) Lab Routine 16 weeks gestation of ([facility]) AMA (advanced maternal age) multigravida 35+, second trimester ([facility]) Ordered: 06/22/2025 [facility] Comment on above: Ordered: 06/22/2025 Cytology Cervical or vaginal smear or scraping study Pap Smear Pathology and Cytology Routine Well woman exam with routine gynecological exam Ordered: 06/18/2024 [facility] Work Phone: Comment on above: Ordered: 06/18/2024 Cytology Cervical or vaginal smear or scraping study Pap Smear Pathology and Cytology Routine Well woman exam with routine gynecological exam Ordered: 06/22/2025 [facility] Work Phone: Comment on above: Ordered: 06/22/2025 DHEA-sulfate DHEA-sulfate Lab Routine PCOS (polycystic ovarian syndrome) Ordered: 06/18/2024 [facility] Comment on above: Ordered: 06/18/2024 Follicle stimulating hormone Follicle stimulating hormone Lab Routine PCOS (polycystic ovarian syndrome) Ordered: 06/18/2024 [facility] Comment on above: Ordered: 06/18/2024 hCG, quantitative, hCG, quantitative, Lab Routine PCOS (polycystic ovarian syndrome) Ordered: 06/18/2024 [facility] Comment on above: Ordered: 06/18/2024 Hemoglobin A1c/Hemoglobin.total in Blood Hemoglobin A1c Lab Routine Abnormal uterine bleeding (AUB) Ordered: 06/18/2024 [facility] Comment on above: Ordered: 06/18/2024 Hemoglobin A1c/Hemoglobin.total in Blood Hemoglobin A1c Lab Routine Missed menses , unspecified gestational age ([facility]) Ordered: 04/30/2025 [facility] Comment on above: Ordered: 04/30/2025 Hepatitis B virus surface Ag [Presence] in Serum or Plasma by Immunoassay Hepatitis B surface antigen Lab Routine Missed menses , unspecified gestational age ([facility]) Ordered: 04/30/2025 [facility] Comment on above: Ordered: 04/30/2025 Hepatitis C virus Ab [Presence] in Serum or Plasma by Immunoassay Hepatitis C antibody Lab Routine Missed menses , unspecified gestational age ([facility]) Ordered: 04/30/2025 [facility] Comment on above: Ordered: 04/30/2025 HIV-1/HIV-2 antigen/antibody combination immunoassay HIV-1 and HIV-2 antibodies Lab Routine Missed menses , unspecified gestational age ([facility]) Ordered: 04/30/2025 [facility] Comment on above: Ordered: 04/30/2025 Human papilloma viru s DNA [Presence] in Unspecified specimen by Probe with amplification HPV DNA probe, amplified Microbiology Routine Well woman exam with routine gynecological exam Ordered: 06/18/2024 [facility] Comment on above: Ordered: 06/18/2024 Human papilloma viru s DNA [Presence] in Unspecified specimen by Probe with amplification HPV DNA probe, amplified Microbiology Routine Well woman exam with routine gynecological exam Ordered: 06/22/2025 [facility] Comment on above: Ordered: 06/22/2025 Luteinizing hormone Luteinizing hormone Lab Routine PCOS (polycystic ovarian syndrome) Ordered: 06/18/2024 [facility] Comment on above: Ordered: 06/18/2024 Neisseria gonorrhoea e DNA [Presence] in Unspecified specimen by JAYNA with probe detection Neisseria gonorrhea DNA probe, direct Lab Routine 16 weeks gestation of ([facility]) AMA (advanced maternal age) multigravida 35+, second trimester ([facility]) Ordered: 06/22/2025 [facility] Comment on above: Ordered: 06/22/2025 Reagin Ab [Presence] in Serum by RPR RPR Lab Routine Missed menses , unspecified gestational age ([facility]) Ordered: 04/30/2025 [facility] Comment on above: Ordered: 04/30/2025 Rubella antibody, IgG Rubella an tibody, IgG Lab Routine Missed menses , unspecified gestational age ([facility]) Ordered: 04/30/2025 [facility] Comment on above: Ordered: 04/30/2025 SURESWAB(R) ADVANCED VAGINITIS PLUS, TMA SURESWAB(R) ADVANCED VAGINITIS PLUS, TMA Pathology and Cytology Routine 16 weeks gestation of ([facility]) AMA (advanced maternal age) multigravida 35+, second trimester ([facility]) Ordered: 06/22/2025 [facility] Comment on above: Ordered: 06/22/2025 Thyrotropin [Units/volume] in Serum or Plasma TSH Lab Routine PCOS (polycystic ovarian syndrome) Ordered: 06/18/2024 [facility] Comment on above: Ordered: 06/18/2024 Thyroxine (T4) free [Mass/volume] in Serum or Plasma T4, free Lab Routine PCOS (polycystic ovarian syndrome) Ordered: 06/18/2024 [facility] Comment on above: Ordered: 06/18/2024 Immunizations Immunization Date Immunization Notes Care Provider Tena higginbotham 03-18-2021 Pfizer Purple Cap SARS-CoV-2 Vaccination Jyoti BROWNING Work Phone: [facility] 02-25-2021 Pfizer Purple Cap SARS-CoV-2 Vaccination Jyoti BROWNING Work Phone: [facility] 05-09-2000 measles, mumps and rubella virus vaccine Jyoti BROWNING Work Phone: [facility] 04-18-1993 diphtheria, tetanus toxoids and pertussis vaccine Jyoti BROWNING Work Phone: [facility] 04-18-1993 trivalent poliovirus vaccine, live, oral Jyoti BROWNING Work Phone: [facility] 03-04-1990 diphtheria, tetanus toxoids and pertussis vaccine Jyoti Hemmer PA Work Phone: [facility] 03-04-1990 haemophilus influenz ae type b vaccine, conjugate unspecified formulation Jyoti Hemmer PA Work Phone: [facility] 03-04-1990 trivalent poliovirus vaccine, live, oral Jyoti Hemmer PA Work Phone: [facility] 11-05-1989 measles, mumps and rubella virus vaccine Jyoti Hemmer PA Work Phone: [facility] 04-02-1989 diphtheria, tetanus toxoids and pertussis vaccine Jyoti Hemmer PA Work Phone: [facility] 1988 diphtheria, tetanus toxoids and pertussis vaccine Jyoti Hemmer PA Work Phone: [facility] 1988 trivalent poliovirus vaccine, live, oral Jyoti Hemmer PA Work Phone: [facility] 1988 diphtheria, tetanus toxoids and pertussis vaccine Jyoti Hemmer PA Work Phone: [facility] 1988 trivalent poliovirus vaccine, live, oral Jyoti Hemmer PA Work Phone: [facility] Payers Date Payer Category Payer [facility] Insurance [facility] [id number] 2022 Unknown [id number] 2022 Unknown [id number] 1988 Unknown [id number] 1988 Unknown [id number] 1988 Unknown [id number] .[id number] 1988 Unknown [id number] .[id number] 1988 Unknown [id number] .[id number] 1988 Unknown [id number] .[id number] 1988 Unknown [id number] .[id number] 1988 Unknown [id number] .[id number] 1988 Unknown [id number] 1959 Unknown [id number] Social History Date Type Detail Facility Unknown if ever smoked [employer] Other Start: 11-13-2023 End: 05-12-2024 Sex Assigned At [facility] Start: 11-12-2023 End: 11-13-2023 Tobacco smoking status VAIS Never smoked tobacco [facility] Start: 1990 Sex Assigned At Not on file [facility] Start: 11-13-2023 Tobacco use and exposure Smokeless tobacco non-user [facility] Start: 11-13-2023 End: 05-08-2025 Alcohol intake Lifetime non-drinker (finding) [facility] Start: 11-13-2023 End: 05-12-2024 History of Social function [facility] Start: 1990 Sex Assigned At [facility] How often do you nee d to have someone help you when you read instructions, pamphlets, or other written material from your doctor or pharmacy [SILS] Never [facility] Do you belong to any clubs or organizations such as jewish groups, unions, fraternal or athletic groups, or school groups? No [facility] Are you now , , , , never or living with a partner? Living with partner [facility] How often to you hav e a drink containing alcohol? Never [facility] Do you feel stress - tense, restless, nervous, or anxious, or unable to sleep at night because your mind is troubled all the time - these days [OSQ] Not at all [facility] (I/We) worried wheth er (my/our) food would run out before (I/we) got money to buy more. Never true [facility] Start: 03-14-2025 [facility] Functional Status Date Assessment Result Facility 05-08-2025 Patient Health Quest ionnaire 2 item (PHQ-2) [Reported] [facility] Clinical Notes 03-14-2022 to 06-22-2025 NAM Dove - 06/22/2025 3:30 PM EDHowie Salazar NP - 05/27/2025 3:50 PM NAM Ibanez - 05/08/2025 10:30 AM Guanakito Elise MA - 04/30/2025 2:00 PM EDT Note Date & Type Note Facility 06-22-2025 History of Presen t illness Narrative Reason for Appointment: Patient ID: Braeden Mccullough is a 35 y.o. 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 HPV (human papilloma virus) infection Implantable subdermal contraceptive surveillance Morbid obesity with BMI of 40.0-44.9, adult ([facility]) Osteopenia of left hip Visual impairment 1997 Social History Tobacco Use Smoking status: Never Smokeless tobacco: Never Vaping Use Vaping status: Never Used Substance Use Topics Alcohol use: Never Drug use: Never FAMILY HISTORY Family History Problem Relation Name Age of Onset Diabetes Father Suresh Mccullough Arthritis Father Suresh Mccullough Hearing loss Father Suresh Mccullough Vision loss Father Suresh Mccullough Cancer Maternal Grandmother Steven [place] Muscular dystrophy Maternal Grandfather Marlon Dubois [...] nursing note reviewed. Exam conducted with a men's swim coach present. Vitals: Estimated body mass index is 39.16 kg/m as calculated from the following: Height as of 05/08/25: 5' 7 . Weight as of this encounter: 250 lb. BP: 116/72 Patient's last menstrual period was 02/28/2025. ASSESSMENT & PLAN ICD-10-CM 1. 16 weeks gestation of ([facility]) Z3A.16 SURESWAB(R) ADVANCED VAGINITIS PLUS, TMA CHLAMYDIA TRACHOMATIS (GENITO/STI) Neisseria gonorrhea DNA probe, direct Alpha fetoprotein, maternal Alpha fetoprotein, maternal POCT urinalysis dipstick manually resulted 2. Well woman exam with routine gynecological exam Z01.419 Pap Smear HPV DNA probe, amplified POCT urinalysis dipstick manually resulted 3. Screening, , for anatomic survey ([facility]) Z36.89 US OB 14+ weeks anatomy scan US OB 14+ weeks anatomy scan 4. AMA (advanced maternal age) multigravida 35+, second trimester ([facility]) O09.522 SURESWAB(R) ADVANCED VAGINITIS PLUS, TMA CHLAMYDIA TRACHOMATIS (GENITO/STI) Neisseria gonorrhea DNA probe, direct Alpha fetoprotein, maternal Alpha fetoprotein, maternal POCT urinalysis dipstick manually resulted Return OB/Annual Exam: Patient presents today for an annual exam/routine obstetrics appointment. Patient is currently 16w2d . Patient is doing well and states she has no complaints. Pap/cultures was obtained without difficulty and patient was given [facility] order to have obtained. Orders Placed This [...] of: NAM Dove documented in this encounter [facility] 05-27-2025 History of Presen t illness Narrative Reason for Appointment: Patient ID: Braeden Mccullough is a 34 y.o. female who presents for Routine Visit Patient presents today for Return OB appointment. 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 HPV (human papilloma virus) infection Implantable subdermal contraceptive surveillance Morbid obesity with BMI of 40.0-44.9, adult ([facility] [place]) Osteopenia of left hip Visual impairment 1997 Social History Tobacco Use Smoking status: Never Smokeless tobacco: Never Vaping Use Vaping status: Never Used Substance Use Topics Alcohol use: Never Drug use: Never FAMILY HISTORY Family History Problem Relation Name Age of Onset Diabetes Father Suresh Mccullough Arthritis Father Suresh Mccullough Hearing loss Father Suresh Mccullough Vision loss Father Suresh Mccullough Cancer Maternal Grandmother Steven Dubois Muscular dystrophy Maternal Grandfather Marlon Dubois [...] Constitutional: Appearance: Normal appearance. She is well-developed. Cardiovascular: Rate and Rhythm: Normal rate and regular rhythm. Pulmonary: Effort: Pulmonary effort is normal. Breath sounds: Normal breath sounds. Abdominal: General: Bowel sounds are normal. There is no distension. Palpations: Abdomen is soft. Tenderness: There is no abdominal tenderness. There is no guarding or rebound. Musculoskeletal: General: No swelling. Normal range of motion. Right lower leg: No edema. Left lower leg: No edema. Neurological: Mental Status: She is alert and oriented to person, place, and time. Skin: General: Skin is warm and dry. Psychiatric: Mood and Affect: Mood normal. Behavior: Behavior normal. Vitals and nursing note reviewed. Exam conducted with a men's swim coach present. Vitals: Estimated body mass index is 38.65 kg/m as calculated from the following: Height as of 05/08/25: 5' 7 . Weight as of this encounter: 246 lb 12 oz. BP: 120/74 Patient's last menstrual period was 02/28/2025. ASSESSMENT & PLAN ICD-10-CM 1. First trimester ([facility]) Z34.91 POCT urinalysis dipstick manually resulted 2. 12 weeks gestation of ([facility]) Z3A.12 Return OB: Patient presents today for a routine obstetrics appointment. Patient is currently 12w4d . Patient states she is doing well but has complaints of being tired due to current . Patient has verbalizes frequent movement. labor precautions was discussed/given and patient was instructed to perform kick counts three times a day. Orders Placed This Encounter Procedures POCT urinalysis dipstick manually resulted Follow Up: Patient is to return to office in 4 week for routine OB appointment. Documented by Carolyn Salazar NP on behalf of: Luzmaria Solares DO documented in this encounter [facility] 05-08-2025 History of Presen t illness Narrative Images from the original note were not included. Subjective Patient ID: Braeden Mccullough is a 34 y.o. female who presents for ankle pain. Braeden is present today for evaluation of ankle pain. Admits left ankle pain for about 3 days. She has been having tee horses and cramping in her left lower leg also. She stepped wrong one day and has been having the pain in the inner ankle behind the heel. Describes pain as sharp and sometimes achy. Pain is only when she is standing on it and from standing to sitting. Rates pain 8/10 when standing/walking or just sitting down from being on it and sitting 0/10. She has only taken 1 Tylenol for it d/t she is 10 weeks . Tylenol was not helpful. Admits she needs to drink more water. Put a walking boot on that her fiance had, but it made her foot go numb. Has to wear steel or composite shoes at work, inserts did not help. Over the past 2 weeks, how often have you been bothered by any of the following problems? Little interest or pleasure in doing things: Not at all Feeling down, depressed, or hopeless: Not at all Patient Health Questionnaire-2 Score: 0 Current Outpatient Medications on File Prior to Visit Medication Sig Dispense Refill MV-Min-Fe Fum-FA-DHA ( 1 PO) Take by mouth No current facility-administered medications on file prior to visit. I have reviewed and reconciled the history and medication list with the patient today. No Known Allergies Social History Tobacco Use Smoking status: Never Smokeless tobacco: Never Vaping Use Vaping status: Never Used Substance Use Topics Alcohol use: Never Drug use: Never Family History Problem Relation Name Age of Onset Diabetes Father Suresh Mccullough Arthritis Father Suresh Mccullough Hearing loss Father Suresh Mccullough Vision loss Father Suresh Mccullough Cancer Maternal Grandmother Steven Dubois Muscular dystrophy Maternal Grandfather Marlon Dubois Vision loss Maternal Grandfather Marlon Dubois Diabetes Paternal Grandmother April Latham Heart disease Paternal Grandmother Apirl Latham Past Medical History: Diagnosis Date 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 Respiratory: Negative for cough, shortness of breath and wheezing. Cardiovascular: Negative for chest pain, palpitations and leg swelling. Gastrointestinal: Positive for nausea. Negative for abdominal pain, constipation, diarrhea and vomiting. Musculoskeletal: Positive for arthralgias and gait problem. Skin: Negative for rash. Objective Physical Exam Constitutional: General: She is not in acute distress. Appearance: Normal appearance. She is well-developed. HENT: Head: Normocephalic and atraumatic. Eyes: General: No scleral icterus. Conjunctiva/sclera: Conjunctivae normal. Cardiovascular: Rate and Rhythm: Normal rate and regular rhythm. Heart sounds: Normal heart sounds. No murmur heard. Pulmonary: Effort: Pulmonary effort is normal. No respiratory distress. Breath sounds: Normal breath sounds. No wheezing, rhonchi or rales. Musculoskeletal: Left ankle: Tenderness (Over medial joint) present. Normal range of motion. Normal pulse. Left Achilles Tendon: No tenderness or defects. Left foot: Bony tenderness (Heel) present. Comments: Strength intact for LLE. Tenderness extends in a line from medial edge of foot, over medial malleolus and 1/3 up the lower leg Skin: General: Skin is warm and dry. Neurological: General: No focal deficit present. Mental Status: She is alert and oriented to person, place, and time. Gait: Gait abnormal (Markedly antalgic). Psychiatric: Mood and Affect: Mood normal. Behavior: Behavior normal. Assessment/Plan Diagnoses and all orders for this visit: Strain of left ankle, initial encounter Rest, can apply ice to the area 20 min on 20 min off as needed - not directly on the skin, ie roll foot over frozen water bottle, elevate as often as possible, SARA wrap for compression, N/V status intact after placement. Encouraged her to reach out to Dr. Solares's office to be sure she is ok to use OTC Diclofenac Gel to area as needed. If not, can use alternative topical agent to area. Will hold off on x-rays due to current , and will only order if symptoms worsen/fail to improve. Walking boot made the pain worse, so will go with supportive shoe and SARA wrap for now. Follow up if symptoms worsen or fail to improve. documented in this encounter [facility] 04-30-2025 History of Presen t illness Narrative Reason for Appointment: Patient ID: Braeden Mccullough is a 34 y.o. female who presents for Amenorrhea Patient presents today for a Nurse OB Intake appointment. Patient is 8w5d with a Estimated Date of Delivery: 12/05/25 OB History Para Term AB Living 2 1 SAB IAB Ectopic Multiple Live Births # Outcome Date GA Lbr Fran/2nd Weight Sex Type Anes PTL Lv 2 Current 1 Term 11/23/09 40w0d 7 lb 11 oz M Spinal N CRISTIAN Current Medications: currently has no medications in their medication list. 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 HPV (human papilloma virus) infection Implantable subdermal contraceptive surveillance Morbid obesity with BMI of 40.0-44.9, adult ([facility]) Family History Problem Relation Name Age of Onset Diabetes Father Cancer Maternal Grandmother Muscular dystrophy Maternal Grandfather Diabetes Paternal Grandmother Heart disease Paternal Grandmother Social History Tobacco Use Smoking status: Never Smokeless tobacco: Never Vaping Use Vaping status: Never Used Substance Use Topics Alcohol use: Never Drug use: Never Past Surgical History: Procedure Laterality Date SECTION, LOW TRANSVERSE 11/2009 No Known Allergies Vitals: Estimated body mass index is 37.24 kg/m as calculated from the following: Height as of 11/12/24: 5' 7 . Weight as of 11/12/24: 237 lb 12.8 oz. BP: Patient's last menstrual period was 02/28/2025. Assessment/Plan Diagnoses and all orders for this visit: Missed menses - Type and screen; Future - ABO/Rh; Future - CBC and differential - Hemoglobin A1c - RPR - Rubella antibody, IgG - Hepatitis B surface antigen - Hepatitis C antibody - HIV-1 and HIV-2 antibodies - Urine culture - POCT , urine manually resulted - POCT urinalysis dipstick manually resulted , unspecified gestational age ([facility]) - Type and screen; Future - ABO/Rh; Future - CBC and differential - Hemoglobin A1c - RPR - Rubella antibody, IgG - Hepatitis B surface antigen - Hepatitis C antibody - HIV-1 and HIV-2 antibodies - Rapid drug screen, urine; Future Encounter for supervision of normal first in first trimester ([facility]) - Rapid drug screen, urine; Future Nurse Note: OB Intake: Patient presents today for first OB visit. Patients history has been reviewed in great detail including any potential risks. Patient signed consent forms and patient desires testing in both trimesters. Patient currently has no complaints and has been advised to drink 6-8 glasses of water a day, eat no raw or undercooked meat, and stay away from [facility]. Patient has also been advised to not change litter boxes and eat 6 small meals a day. Patient has been consulted regarding the do's and don'ts of . Patient was given labs and all questions and concerns were answered. Follow Up: Patient is to have labs drawn and return to office for initial OB appointment with provider. Patient may call office as needed with any concerns or questions. Nurse Visit Completed by: Rasheeda Elise MA documented in this encounter [facility] 11-12-2024 History of Presen t illness Narrative Images from the original note were not included. HPI Obesity Additional comments: She would like to discuss going back on Adipex. Fall Additional comments: Pt fell Sunday in the afternoon, hurt bilateral wrists and tailbone. Right wrist is worse than left wrist. She did not go to ER. She has missed Sunday and Sunday and 1/2 a day today, not going in tomorrow d/t the job she would be doing would be using her wrists a lot. Fell down three steps. Last edited by NAM Orourke on 11/12/2024 4:16 PM. Subjective Patient ID: Braeden Mccullough is a 34 y.o. female who presents for dysmenorrhea. Braeden is present today for follow up dysmenorrhea. She has intermittent FMLA in place for this conditions. States the [employer] visit was a lot and was overwhelmed. Did not remember that she was supposed to call office when her cycle began to start Femara. Metformin was not helpful. Did not get labs done. States she is not sure she wants to get anymore due to issues with her fiance. They have been fighting more. They are supposed to get this Fall. He struggles with depression which makes things difficult. Current Outpatient Medications on File Prior to Visit Medication Sig Dispense Refill [DISCONTINUED] cephalexin (Keflex) 500 MG capsule Take 500 mg by mouth in the morning and 500 mg before bedtime. [DISCONTINUED] metFORMIN XR (Glucophage-XR) 500 MG 24 hr tablet Take 1 tablet (500 mg) by mouth in the evening. Take with meals Do not crush, chew, or split. 30 tablet 11 No current facility-administered medications on file prior to visit. I have reviewed and reconciled the history and medication list with the patient today. 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 Respiratory: Negative for cough, shortness of breath and wheezing. Cardiovascular: Negative for chest pain, palpitations and leg swelling. Gastrointestinal: Negative for abdominal pain, constipation, diarrhea, nausea and vomiting. Genitourinary: Positive for menstrual problem. Musculoskeletal: Positive for arthralgias. Skin: Negative for [...] breath sounds. No wheezing, rhonchi or rales. Musculoskeletal: Right wrist: Swelling (Mild) present. Decreased range of motion. Normal pulse. Left wrist: Swelling (Mild) and snuff box tenderness (Mild) present. Decreased range of motion. Normal pulse. Comments: ROM limited in all directions at extremes. Skin: General: Skin is warm and dry. Neurological: General: No focal deficit present. Mental Status: She is alert and oriented to person, place, and time. Psychiatric: Mood and Affect: Mood normal. Behavior: Behavior normal. Assessment/Plan Diagnoses and all orders for this visit: Dysmenorrhea Encouraged pt to consider reaching out to Dr. Solares to set up an appointment to readdress some of the previously discussed topics. Bilateral wrist pain Offered x-rays, she declines at this time. Encouraged her to call the office if symptoms worsen or persist, x-rays can be ordered. Encouraged her to try Voltaren Gel to the wrists up to four times a day. Can ice them after work if needed, not directly on skin. Class 2 obesity due to excess calories without serious comorbidity with body mass index (BMI) of 37.0 to 37.9 in adult Has gained 16 pounds since her last appointment. Advised pt that while he is still considering getting , she cannot be restarted on Adipex. Encouraged her to have a good conversation with her fiance about possibly working through their current concerns first prior to trying to become . If she would like to proceed with Adipex, she would need to use some form of control. She voices understanding. Tail bone pain Encouraged off loading. Can consider donut pillow. Advised the bruising may worsen before it resolves, may travel into her upper legs. Follow up if symptoms worsen or fail to improve. documented in this encounter [facility] 06-18-2024 History of Presen t illness Narrative Reason for Appointment: Patient ID: Braeden Mccullough is a 34 y.o. female who presents for Well Women Visit Patient presents today for Annual Exam. 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 HPV (human papilloma virus) infection Implantable subdermal contraceptive surveillance Morbid obesity with BMI of 40.0-44.9, adult ([facility]) HISTORY PAST MEDICAL HISTORY SOCIAL HISTORY Past Medical History: Diagnosis Date 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 HPV (human papilloma virus) infection Implantable subdermal contraceptive surveillance Morbid obesity with BMI of 40.0-44.9, adult ([facility]) Osteopenia of left hip Social History Tobacco Use Smoking status: Never Smokeless tobacco: Never Vaping Use Vaping status: Never Used Substance Use Topics Alcohol use: Never Drug use: Never FAMILY HISTORY Family History Problem Relation Name Age of Onset Diabetes Father Cancer Maternal Grandmother Muscular dystrophy Maternal Grandfather Diabetes Paternal Grandmother Heart disease Paternal Grandmother SURGICAL HISTORY Past Surgical History: Procedure Laterality [...] appearance. She is well-developed. Genitourinary: Vulva normal. Breasts: Breasts are soft. Right: Normal. Left: Normal. Cardiovascular: Rate and Rhythm: Normal rate and regular rhythm. Pulmonary: Effort: Pulmonary effort is normal. Breath sounds: Normal breath sounds. Abdominal: General: Bowel sounds are normal. There is no distension. Palpations: Abdomen is soft. Tenderness: There is no abdominal tenderness. There is no guarding or rebound. Musculoskeletal: General: No swelling. Normal range of motion. Right lower leg: No edema. Left lower leg: No edema. Neurological: Mental Status: She is alert and oriented to person, place, and time. Skin: General: Skin is warm and dry. Psychiatric: Mood and Affect: Mood normal. Behavior: Behavior normal. Vitals and nursing note reviewed. Exam conducted with a men's swim coach present. Vitals: Estimated body mass index is 34.63 kg/m as calculated from the following: Height as of this encounter: 5' 7 . Weight as of this encounter: 221 lb 1.9 oz. BP: 120/78 Patient's last menstrual period was 06/11/2024. ASSESSMENT & PLAN ICD-10-CM 1. Well woman exam with routine gynecological exam Z01.419 Pap Smear HPV DNA probe, amplified Annual Exam: Patient presents today for an annual exam. Patient states she is doing well and has no complaints. Pap was obtained without difficulty. Discussed fertility. Patient was given a standing lab order. Patient was instructed to call the office once menstrual cycle begins so femara can be called into patients pharmacy. Patient has been instructed to take Femara on days 3-7 of cycle. On day 21 of cycle patient is to have progesterone labs drawn. Patient was advised to have intercourse on days 12, 14, 16, 18, and 20 of cycle. We will do three rounds of Femara and if patient has not conceived by then, we will perform HSG. Patient has voiced understanding and will call our office for any further questions/concerns. Orders Placed This Encounter Procedures HPV DNA probe, amplified hCG, quantitative, TSH T4, free CBC and differential Follicle stimulating hormone Luteinizing hormone Hemoglobin A1c DHEA-sulfate DHEA Antimullerian hormone (AMH) Follow Up: As needed. Orders Placed This Encounter Procedures HPV DNA probe, amplified hCG, quantitative, TSH T4, free CBC and differential Follicle stimulating hormone Luteinizing hormone Hemoglobin A1c DHEA-sulfate DHEA Antimullerian hormone (AMH) Follow Up: Patient is to return in one year for annual unless needed otherwise. Documented by Jyoti Melvin LPN on behalf of: Luzmaria Solares DO documented in this encounter [facility] 06-16-2024 History of Presen t illness Narrative Images from the original note were not included. Subjective Patient ID: Braeden Mccullough is a 34 y.o. female who presents for [facility] ER follow up. gFlowsheet Row Documentation from 06/12/2024 in [facility] with Jerica [place], [place] Hospital Information Discharged To: Home Setting Discharge Hospital [facility] Diagnosis pelvic pain Discharge Date 06/12/24 Engagement Call Start Time 1540 Admission Date 06/12/24 Medications Discharge medications reviewed and reconciled from hospital? Yes Is the patient having any side effects they believe may be caused by any medication additions or changes? No Appointments Does the patient have a primary care provider? Yes Self Management Patient Teaching Does the patient have access to their discharge instructions? Yes What is the patient's perception of their health status since discharge? Same Wrap Up Wrap Up Additional Comments pt calling mail processing associate to follow up Call End Time 1541 She started her menstral cycle on Sunday and by Sunday evening she was in 10/10 pain, could not hardly function. Her pain was in her whole abdomen and radiating to her lower back. She took midol and it made the pain worse. She went to ER and they gave her morphine at the hospital and that helped the pain but then on had pain of 7-8/10 and they gave her 4 or 5 [place] to take home and she did take half to 1 of them on . Sunday midday she was starting to feel better. She does have an appt with Dr. Solares on 06/18/24. Is off of her period now. States that CT and US were done in the ER. Showed thickened endometrium. Was told her WBC was high. Did have one normal period in May on the . Her next period started on 06/11/2024. No current outpatient medications on file prior to visit. No current facility-administered medications on file prior to visit. I have reviewed and reconciled the history and medication list with the patient today. 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 Respiratory: Negative for cough, shortness of breath and wheezing. Cardiovascular: Negative for chest pain, palpitations and leg swelling. Gastrointestinal: Positive for abdominal pain (resolved). Negative for constipation, diarrhea, nausea and vomiting. Genitourinary: Positive for menstrual problem. Skin: Negative for rash. Objective Physical Exam [...] Diagnoses and all orders for this visit: Endometrial thickening on ultrasound Keep appointment with Dr. Solares as scheduled on 06/18/2024. Lower abdominal pain Missed work the day following ER visit, is going to be off work from 06/12/2024 through 06/19/2024 for a period of continuous leave, and RTW 06/20/2024. Symptoms are resolved at this time. Hypokalemia - Basic metabolic panel; Future Will recheck potassium level on with upcoming lab. Hypomagnesemia - Magnesium; Future Will recheck magnesium level on with upcoming lab. Dysmenorrhea Requesting FMLA for dysmenorrhea, will provide pt with intermittent leave 3 days a month as needed. The patient was seen today in follow up of recent hospital ER visit. All available hospital records/labs/diagnostics were reviewed and discussed with the patient. ER discharge meds were reviewed. Any changes to plan are noted above. Follow up in about 5 months (around 11/16/2024). documented in this encounter [facility] 11-13-2023 History of Presen t illness Narrative Subjective Patient ID: Braeden Mccullough is a 33 y.o. female who presents to become established. Braeden is present today to become established. She does not have any concerns today just wanted to get established. 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 Worst in the morning. Does stretches. Does not take anything OTC. 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 Has a 13 year old son. Was on the depo-provera shot for 10 years, caused her to gain weight. Admits does not eat a healthy diet. States is considering having another child. 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 Consider vitamin. Follow up with HEMODIALYSIS CHARGE NURSE prn. Follow up in about 3 months (around 02/11/2024) for Follow Up. documented in this encounter [facility] 03-14-2022 Evaluation note Encounter Date Diagnosis Assessment [...] or sprain home care material was printed [employer] Other Evaluation note* Diagnosis Polyarthralgia- Primary Pain in joint, multiple sites Morbid obesity (CMS/HCC) Morbid obesity Dry skin dermatitis Contact dermatitis and other eczema due to other specified agent documented in this encounter [facility] WidbookEvaluation noteNo assessment information availablePromedica Fost[facility] Work Phone: Evaluation note* Diagnosis Endometrial thickening on ultrasound- Primary Lower abdominal pain Abdominal pain, other specified site Hypokalemia Hypopotassemia Hypomagnesemia Disorders of magnesium metabolism Dysmenorrhea documented in this encounter [facility] HealthcareEvaluation note* Diagnosis Well woman exam with routine gynecological exam Routine gynecological examination PCOS (polycystic ovarian syndrome) Polycystic ovaries Abnormal uterine bleeding (AUB) documented [facility]* Diagnosis Dysmenorrhea- Primary Bilateral wrist pain Class 2 obesity due to excess calories without serious comorbidity with body mass index (BMI) of 37.0 to 37.9 in adult Tail bone pain documented in this encounter [facility]* Diagnosis Missed menses , unspecified gestational age ([facility]) Encounter for supervision of normal first in first trimester ([facility]) documented in this encounter [facility]* Diagnosis Strain of left ankle, initial encounter- Primary documented in this encounter [facility]* Diagnosis First trimester ([facility]) state, incidental 12 weeks gestation of ([facility]) documented in this encounter [facility]* Diagnosis 16 weeks gestation of ([facility]) Well woman exam with routine gynecological exam Routine gynecological examination Screening, , for anatomic survey ([facility]) Encounter for anatomic survey AMA (advanced maternal age) multigravida 35+, second trimester ([facility]) documented in this encounter [facility] Healthcare[facility] general Narrative - Reported* Type Description Date Medical History nexaplanon in arm Surgical History 2009 [employer] Other Summary Purpose Family History Relationship Condition Age at Onset Recorded Date/T ilan father Diabetes mellitus Unknown Advance Directives Advance Directive Response Recorded Date/ Time Advance Directives No April 01 10:29am Chief Complaint and Reason for Visit Chief Complaint Allergic reaction Additional Source Comments INFORMATION SOURCE (unrecogn ized section and content) DATE CREATED AUTHOR 06/30/2020 [facility] DATE CREATED AUTHOR AUTHOR'S ORGANIZ ATION 05/29/2025 [facility] d[facility] Specialists EPIC REASON FOR VISIT (unrecogniz ed section and content) Reason Comments Well Women Visit Reason Comments Obesity She would like to di scuss going back on [employer]ipe[employer]. Fall Pt fell Sunday in e afternoon, hurt bilateral wrists and tailbone. Right wrist is worse than left wrist. She did not go to ER. She has missed Sunday and Sunday and 1/2 a day today, not going in tomorrow d/t the job she would be doing would be using her wrists a lot.Fell down three steps. Reason Comments Amenorrhea Reason Comments Routine Visit Care Teams (unrecognized sec tion and content) Team Status: Active Member Role Status Dates PHYSICIAN NO FAMILY Primary Care Provider Active Team Status: Inactive Member Role Status Dates PHYSICIAN NO FAMILY Primary Care Provider Active Start: April 01, 2024 End: April 01, 2024 Rhea Abdi APRN Attending Provider Active Start: April 01, 2024 End: April 01, 2024 Electrical Foreman Relationship Specialty Start Date End Date Jyoti Leggett PA [address] [facility] [address] [place] [address] PCP - General Family Medicine 03/12/24 Electrical Foreman Relationship Specialty Start Date End Date Jyoti Leggett PA [address] [facility] [address] [place] [address] PCP - General Family Medicine 03/12/24 Electrical Foreman Relationship Specialty Start Date End Date Jyoti Leggett PA [address] [facility] [address] [place] [address] PCP - General Family Medicine 03/12/24 Electrical Foreman Relationship Specialty Start Date End Date Jyoti Leggett PA [address] [facility] [address] [place] [address] PCP - General Family Medicine 03/12/24 Electrical Foreman Relationship Specialty Start Date End Date Jyoti Leggett PA [address] [facility] [address] [place] [address] PCP - General Family Medicine 03/12/24 Electrical Foreman Relationship Specialty Start Date End Date Jyoti Leggett PA [address] [facility] [address] [place] [address] PCP - General Family Medicine 03/12/24 Electrical Foreman Relationship Specialty Start Date End Date Jyoti Leggett PA [address] [facility] [address] [place] [address] PCP - General Family Medicine 03/12/24 Electrical Foreman Relationship Specialty Start Date End Date Jyoti Leggett PA [address] [facility] [address] [place] [address] PCP - General Family Medicine 03/12/24 Electrical Foreman Relationship Specialty Start Date End Date Jyoti Leggett PA [address] [facility] [address] [place] [address] PCP - General [facility] Medicine 03/12/24 Electrical Foreman Relationship Specialty Start Date End Date Jyoti Leggett PA [address] [facility] [address] [place] [address] PCP - General Family Medicine 03/12/24 Goals (unrecognized section and content) Goals may [...] BE BASED ON THE PRIMARY CLINICAL RECORDS. [employer] [facility]. provides no warranty or guarantee of the accuracy or completeness of information in this document.
[2025-06-26 16:09] LABS: Age Gdln ACOG Testing Note (.); IGP, Aptima HPV, rfx 16/18,45 Note (.)
== END 2025-06-22 21:09 | disposition home or self-care (01) ==
LOC: LAB 21:08
PROVIDERS: PCP Physician Assistant; Visit Provider Obstetrics & Gynecology
DX: Z01.419 Encounter for gynecological examination (general) (routine) without abnormal findings (principal)
CPT/HCPCS: 87624; 88175

== ENCOUNTER 2025-06-30 10:37 | Outpatient (OUT) | payer OTHER, SELFPAY ==
--- OUTSIDE RECORDS SUMMARY | 2025-06-22 15:30 | XMS_ITS | Encounter Summary ---
Author Organization [facility] Address [address] [place] [address] Care Team Providers Care Full Stack Net Developer Name Role Phone Jyoti Boone Primary Care Provider [phone] Encounter Details Date Type Department Care Team (Latest Contact Info) Description 06/22/2025 3:30 PM EDT Routine [facility] [address] [place] [address] Suzi Iniguez PA [address] [place], [place] [id number] 16 weeks gestation of ([facility]); Well woman exam with routine gynecological exam; Screening, , for anatomic survey ([facility]); AMA (advanced maternal age) multigravida 35+, second trimester ([facility]) Social History Tobacco Use Types Packs/Day Years Used Date Smoking Tobacco: Never Smokeless Tobacco: Never Alcohol Use Standard Drinks/Week Comments Never 0 (1 standard drink = 0.6 oz pur e alcohol) B1300 Health Literacy Answer Date Recor ded How often do you need to hav e someone help you when you read instructions, pamphlets, or other written material from your doctor or pharmacy? Never 05/12/2024 Social Connection and Isolation Panel [NHANES] A nswer Date Recorded In a typical week, how many times do you talk on the phone with family, friends, or neighbors? Twice a week 05/12/20 24 How often do you get togethe r with friends or relatives? Once a week 05/12/2024 How often do you attend [facility] or taoist services? Never 05/12/2024 Do you belong to any clubs o r organizations such as evangelical groups, unions, fraternal or athletic groups, or school groups? No 05/12/2024 How often do you attend meet ings of the clubs or organizations you belong to? Never 05/12/2024 Are you , , di vorced, , never , or living with a partner? Living with partner 05/12/2024 AUDIT-C Answer Date Recorded Q1: How often do you have a drink containing alcohol? Never 05/12/2024 Q2: How many drinks containi ng alcohol do you have on a typical day when you are drinking? Patient does not drink Q3: How often do you have si x or more drinks on one occasion? Never 05/12/2024 Overall Financial Resource Strain (CARDIA) Answe r Date Recorded How hard is it for you to pa y for the very basics like food, housing, medical care, and heating? Not hard at all 05/12/2024 PHQ-2 Answer Date Recorded Patient Health Questionnaire-2 Score 0 05/08/2025 [facility] - Occupational Stress Questionnaire Answer Date Recorded Do you feel stress - tense, restless, nervous, or anxious, or unable to sleep at night because your mind is troubled all the time - these days? Not at all 05/12/2024 Exercise Vital Sign Answer Date Recorde d On average, how many days pe r week do you engage in moderate to strenuous exercise (like a brisk walk)? 3 days 05/12/2024 On average, how many minutes do you engage in exercise at this level? 30 min 05/12/2024 Hunger Vital Sign Answer Date Recorded Within the past 12 months, y ou worried that your food would run out before you got the money to buy more. Never true 05/12/20 24 Within the past 12 months, t he food you bought just didn't last and you didn't have money to get more. Never true 05/12/2024 PRAPARE - Transportation Answer Date Re corded In the past 12 months, has l ack of transportation kept you from medical appointments or from getting medications? No 05/01 In the past 12 months, has l ack of transportation kept you from meetings, work, or from getting things needed for daily living? No 05/12/2024 Housing Stability Vital Sign Answer Ryan e Recorded In the last 12 months, was t here a time when you were not able to pay the mortgage or rent on time? No 05/12/2024 In the past 12 months, how m any times have you moved where you were living? 0 05/12/2024 At any time in the [facility], were you homeless or living in a assisted (including now)? No 05/12/2024 Estimated Date of Delivery Comme nts Yes 12/05/2025 Based on last me nstrual period of 02/28/2025 Sex and Gender Information Value Date Recorded Sex Assigned at Not on file Legal Sex Female 11:47 PM EDT Gender Identity Not on file Sexual Orientation Not on file documented as of this encounter Last Filed Vital Signs Vital Sign Reading Time Taken Comments Blood Pressure 116/72 06/22/2025 3:47 PM EDT Pulse - - Temperature - - Respiratory Rate - - Oxygen Saturation - - Inhaled Oxygen Concentration - - Weight 113 kg (250 lb) 06/22/2025 3:47 PM EDT Height - - Body Mass Index 39.16 05/08/2025 10:33 AM EDT documented in this encounter Progress Notes * NAM Dove - 06/22/2025 3:30 PM EDT Reason for Appointment: Patient ID: Frida Mccullough is a 35 y.o. female who presents for No chief complaint on file. Patient presents today for Annual Exam. and Return OB appointment. MEDICATIONS Current Outpatient Medications Medication Instructions MV-Min-Fe Fum-FA-DHA ( 1 PO) Take by mouth ALLERGIES No Known Allergies PROBLEMS Active Ambulatory Problems Diagnosis Date Noted Human papilloma virus (HPV) infection 11/13/2023 Osteopenia of left hip 11/13/2023 Polyarthralgia 11/13/2023 Dry skin dermatitis 11/13/2023 Dysmenorrhea 06/11/2024 Class 2 obesity due to excess calories without serious comorbidity with body mass index (BMI) of 37.0 to 37.9 in adult 11/12/2024 16 weeks gestation of ([facility]) 06/22/2025 Resolved Ambulatory Problems Diagnosis Date Noted Obesity (BMI 30.0-34.9) 11/13/2023 Past Medical History: Diagnosis Date Encntr for med dir exam (general) (routine) w/o abn findings HPV (human papilloma virus) infection Implantable subdermal contraceptive surveillance Morbid obesity with BMI of 40.0-44.9, adult ([facility]) Visual impairment 1998 HISTORY PAST MEDICAL HISTORY SOCIAL HISTORY Past Medical History: Diagnosis Date Encntr for med dir exam (general) (routine) w/o abn findings HPV (human papilloma virus) infection Implantable subdermal contraceptive surveillance Morbid obesity with BMI of 40.0-44.9, adult ([facility]) Osteopenia of left hip Visual impairment 1997 Social History Tobacco Use Smoking status: Never Smokeless tobacco: Never Vaping Use Vaping status: Never Used Substance Use Topics Alcohol use: Never Drug use: Never FAMILY HISTORY Family History Problem Relation Name Age of Onset Diabetes Father Suresh Mccullough Arthritis Father Suresh Mccullough Hearing loss Father Suresh Mccullough Vision loss Father Suresh Mccullough Cancer Maternal Grandmother Jacki Dubois Muscular dystrophy Maternal Grandfather Marlon Dubois Vision loss Maternal Grandfather Marlon Dubois Diabetes Paternal Grandmother April Latham Heart disease Paternal Grandmother April Latham SURGICAL HISTORY Past Surgical History: Procedure Laterality Date SECTION, LOW TRANSVERSE 11/2009 REVIEW OF SYSTEMS Review of Systems: Review of Systems Constitutional: Negative. HENT: Negative. Eyes: Negative. Respiratory: Negative. Cardiovascular: Negative. Gastrointestinal: Negative. Genitourinary: Negative. Musculoskeletal: Negative. Skin: Negative. Neurological: Negative. All other systems reviewed and are negative. Hematological: Negative. Endocrine: Negative. Allergic/Immunologic: Negative. OBJECTIVE Objective: Physical Exam Constitutional: Appearance: Normal appearance. She is well-developed. Genitourinary: Vulva normal. Right Adnexa: not tender and no mass present. Left Adnexa: not tender and no mass present. No cervical discharge. Breasts: Breasts are soft. Right: Normal. Left: Normal. HENT: Head: Normocephalic. Nose: Nose normal. Mouth/Throat: Mouth: Mucous membranes are moist. Cardiovascular: Rate and Rhythm: Normal rate and regular rhythm. Pulmonary: Effort: Pulmonary effort is normal. Breath sounds: Normal breath sounds. Abdominal: General: Bowel sounds are normal. There is no distension. Palpations: Abdomen is soft. Tenderness: There is no abdominal tenderness. There is no guarding or rebound. Musculoskeletal: General: No swelling. Normal range of motion. Cervical back: Normal range of motion. Right lower leg: No edema. Left lower leg: No edema. Neurological: General: No focal deficit present. Mental Status: She is alert and oriented to person, place, and time. Skin: General: Skin is warm and dry. Psychiatric: Mood and Affect: Mood normal. Behavior: Behavior normal. Vitals and nursing note reviewed. Exam conducted with a yard brakeman present. Vitals: Estimated body mass index is 39.16 kg/m?? as calculated from the following: Height as of 05/08/25: 5' 7 . Weight as of this encounter: 250 lb. BP: 116/72 Patient's last menstrual period was 02/28/2025. ASSESSMENT & PLAN ICD-10-CM 1. 16 weeks gestation of ([facility]) Z3A.16 SURESWAB(R) ADVANCED VAGINITIS PLUS, TMA CHLAMYDIA TRACHOMATIS (GENITO/STI) Neisseria gonorrhea DNA probe, direct Alpha fetoprotein, maternal Alpha fetoprotein, maternal POCT urinalysis dipstick manually resulted 2. Well woman exam with routine gynecological exam Z01.419 Pap Smear HPV DNA probe, amplified POCT urinalysis dipstick manually resulted 3. Screening, , for anatomic survey ([facility]) Z36.89 US OB 14+ weeks anatomy scan US OB 14+ weeks anatomy scan 4. AMA (advanced maternal age) multigravida 35+, second trimester ([facility]) O09.522 SURESWAB(R) ADVANCED VAGINITIS PLUS, TMA CHLAMYDIA TRACHOMATIS (GENITO/STI) Neisseria gonorrhea DNA probe, direct Alpha fetoprotein, maternal Alpha fetoprotein, maternal POCT urinalysis dipstick manually resulted Return OB/Annual Exam: Patient presents today for an annual exam/routine obstetrics appointment. Patient is currently 16w2d . Patient is doing well and states she has no complaints. Pap/cultures was obtained without difficulty and [facility]. Orders Placed This Encounter Procedures HPV DNA probe, amplified US OB 14+ weeks anatomy scan CHLAMYDIA TRACHOMATIS (GENITO/STI) Neisseria gonorrhea DNA probe, direct Alpha fetoprotein, maternal POCT urinalysis dipstick manually resulted Follow Up: Patient is to return to our office in 4 weeks for routine OB appointment Documented by Michell Rivas LPN on behalf of: NAM Dove documented in this encounter Plan of Treatment Upcoming Encounters Date Type Department Care Team (Late st Contact Info) Description 07/22/2025 1:30 PM EDT Ancillary Procedure [facility] [address] [place] [address] 07/22/2025 2:40 PM EDT Routine [facility] [address] [place] [address] Leobardo Solares DO [address], [place] [id number] Scheduled Orders Name Type Priority Associated Diagnoses Orde r Schedule Pap Smear Pathology and Cytology Routine Well woman exam with routine gynecological exam Ordered: 06/22/2025 HPV DNA probe, amplified Microbiology Routine Well woman exam with routine gynecological exam Ordered: 06/22/2025 SURESWAB(R) ADVANCED VAGINITIS PLUS, TMA Pathology and Cytology Routine 16 weeks gestation of ([facility]) AMA (advanced maternal age) multigravida 35+, second trimester ([facility]) Ordered: 06/22/2025 CHLAMYDIA TRACHOMATIS (GENITO/STI) Lab Routine 16 weeks gestation of ([facility]) AMA (advanced maternal age) multigravida 35+, second trimester ([facility]) Ordered: 06/22/2025 Neisseria gonorrhea DNA probe, direct Lab Routine 16 weeks gestation of ([facility]) AMA (advanced maternal age) multigravida 35+, second trimester ([facility]) Ordered: 06/22/2025 Alpha fetoprotein, maternal Lab Routine 16 weeks gestation of ([facility]) AMA (advanced maternal age) multigravida 35+, second trimester ([facility]) Expected: 06/22/2025 (Approximate), Expires: 09/21/2025 US OB 14+ weeks anatomy scan Imaging Routine Screening, , for anatomic survey ([facility]) Expected: 06/22/2025, Expires: 09/21/2025 documented as of this encounter Procedures Procedure Name Priority Date/Time Associated Diagnosis Comments POCT URINALYSIS DIPSTICK Routine 06/22/2025 4:08 PM EDT 16 weeks gestation of ([facility]) Well woman exam with routine gynecological exam AMA (advanced maternal age) multigravida 35+, second trimester ([facility]) documented in this encounter Results * (ABNORMAL) POCT urinalysis dipstick manually resulted (06/22/2025 4:08 PM EDT) Color, UA Yellow Clarity, UA Cloudy Glucose, UA Negative Negative - 2000(110) ++++ mg/dL Bilirubin, UA Negative Negative - 4(70) +++ mg/dL Ketones, UA Positive Negative - 160(16) ++++ mg/dL Comment:1+ Spec Grav, UA 1.030 1 - 1.03 Blood, UA Positive Negative - 50 Malvin/mcL Comment:1+ pH, UA 5.5 5 - 9 Protein, UA 1+ Negative - 2000(20) ++++ mg/dL Urobilinogen, UA 0.2 0.2 - 12 mg/dL Leukocytes, UA 2+ Negative - 500+++ Dionte/mcL Nitrite, UA Negative Negative - Positive Urine 06/22/2025 4:08 PM EDT Suzi BROWNING POINT OF CARE TEST ENTER/EDIT OR DERABLES Final Result documented in this encounter Visit Diagnoses Diagnosis 16 weeks gestation of ([facility]) Well woman exam with routine gynecological exam Routine gynecological examination Screening, , for anatomic survey ([facility]) Encounter for anatomic survey AMA (advanced maternal age) multigravida 35+, second trimester ([facility]) documented in this encounter Care Teams Full Stack Net Developer Relationship Specialty Start Date End Date Jyoti Boone PA [address] [facility] [address] [place] [address] PCP - General Family Medicine 03/12/24 documented as of this encounter
--- OUTSIDE RECORDS SUMMARY | 2025-06-30 10:40 | XMS_ITS | Encounter Summary ---
Author Organization [facility] Address [address] [facility] [place] [address] Care Team Providers Care Strip Catcher Name Role Phone Jyoti Boone Primary Care Provider [phone] Encounter Details Date Type Department Care Team (Late st Contact Info) Description 06/22/2025 External Result Encounter [facility] External Department Unsolicited Suzi Iniguez PA [address] [place] [address] [place] [id number] Social History Tobacco Use Types Packs/Day Years [...] week 05/12/2024 How often do you attend chur ch or scientologist services? Never 05/12/2024 Do you belong to any clubs o r organizations such as rastafarian groups, unions, fraternal or athletic groups, or [...] Recorded Patient Health Questionnaire-2 Score 0 05/08/2025 [facility] of Occupat ional Health - Occupational Stress Questionnaire Answer Date Recorded [...] any time in the past [address] [facility], were you homeless or living in a halfway (including now)? No 05/12/2024 Estimated Date of Delivery Comme nts Yes 12/05/2025 Based on last me nstrual period of 02/28/2025 Sex and Gender Information Value Date Recorded Sex Assigned at Not on file Legal Sex Female 11:47 PM EDT Gender Identity Not on file Sexual Orientation Not on file documented as of this encounter Plan of Treatment Upcoming Encounters Date Type Department Care Team (Late st Contact Info) Description 07/22/2025 1:30 PM EDT Ancillary Procedure [facility] Brannon OBANTHONY [address] [place] [id number] 07/22/2025 2:40 PM EDT Routine [facility] Brannon UNDERWOOD [address] [facility] [place] [phone] Leobardo Solares DO [address] [facility] [address] [place], [place] [id number] documented as of this encounter Procedures Procedure Name Priority Date/Time Associated Diagnosis Comments RECURRENT VAGINITIS (HTRX) Routine 06/22/2025 4:47 PM EDT documented in this encounter Results * (ABNORMAL) RECURRENT VAGINITIS (HTRX) (06/22/2025 4:47 PM EDT) Pathologist [facility] ATOPOBIUM VAGINAE 22.17(A) 19.961 - 24.689 ppm 06/24/2025 6:46 AM EDT [facility] ATOPOBIUM VAGINAE Detected(A) 19.961 - 24.689 ppm 06/24/2025 6:46 AM EDT [facility] BVAB 2,3 (BACTERIAL VAGINOSIS ASSOCIATED BACTERIA 2, 3); MOBILUNCUS SPP 0 19.961 - 24.689 ppm 06/24/2025 6:46 AM EDT [facility] BVAB 2,3 (BACTERIAL VAGINOSIS ASSOCIATED BACTERIA 2, 3); MOBILUNCUS SPP Not Detected 19.961 - 24.689 ppm 06/24/2025 6:46 AM EDT [facility] SALIMA ALBICANS, PARAPSILOSIS, TROPICALIS 24.806(A) 23.000 - 30.347 ppm 06/24/2025 6:46 AM EDT [facility] SALIMA ALBICANS, PARAPSILOSIS, TROPICALIS Detected(A) 23.000 - 30.347 ppm 06/24/2025 6:46 AM EDT [facility] SALIMA GLABRATA 0 23.000 - 31.618 ppm 06/24/2025 6:46 AM EDT [facility] SALIMA GLABRATA Not Detected 23.000 - 31.618 ppm 06/24/2025 6:46 AM EDT [facility] SALIMA KRUSEI 0 23.000 - 30.873 ppm 06/24/2025 6:46 AM EDT [facility] SALIMA KRUSEI Not Detected 23.000 - 30.873 ppm 06/24/2025 6:46 AM EDT [facility] CHLAMYDIA TRACHOMATIS 0 23.000 - 31.586 ppm 06/24/2025 6:46 AM EDT [facility] CHLAMYDIA TRACHOMATIS Not Detected 23.000 - 31.586 ppm 06/24/2025 6:46 AM EDT [facility] GARDNERELLA VAGINALIS 16.422(A) 19.961 - 24.689 ppm 06/24/2025 6:46 AM EDT [facility] GARDNERELLA VAGINALIS Detected(A) 19.961 - 24.689 ppm 06/24/2025 6:46 AM EDT [facility] MEGASPHAERA (TYPES 1, 2) 0 19.961 - 24.689 ppm 06/24/2025 6:46 AM EDT [facility] MEGASPHAERA (TYPES 1, 2) Not Detected 19.961 - 24.689 ppm 06/24/2025 6:46 AM EDT [facility] NEISSERIA GONORRHOEAE 0 23.000 - 32.587 ppm 06/24/2025 6:46 AM EDT [facility] NEISSERIA GONORRHOEAE Not Detected 23.000 - 32.587 ppm 06/24/2025 6:46 AM EDT [facility] TRICHOMONAS VAGINALIS 0 23.000 - 31.995 ppm 06/24/2025 6:46 AM EDT [facility] TRICHOMONAS VAGINALIS Not Detected 23.000 - 31.995 ppm 06/24/2025 6:46 AM EDT [facility] MYCOPLASMA GENITALIUM 0 19.961 - 24.689 ppm 06/24/2025 6:46 AM EDT [facility] MYCOPLASMA GENITALIUM Not Detected 19.961 - 24.689 ppm 06/24/2025 6:46 AM EDT [facility] Tissue 06/22/2025 4:47 PM EDT 06/24/2025 1:56 AM EDT us Suzi BROWNING [facility] BLOOD ORDERABLES Final Resul t [facility] [address] [place] [address] documented in this encounter Visit Diagnoses Not on filedocumented in this encounter Care Teams Strip Catcher Relationship Specialty Start Date End Date Jyoti Boone PA [address] [place] [address] [address] [place] [address] PCP - General Family Medicine 03/12/24 documented as of this encounter
--- OUTSIDE RECORDS SUMMARY | 2025-06-30 10:40 | XMS_ITS | Encounter Summary ---
Author Organization [facility] Address [address] [facility] [place] [address] Care Team Providers Care Paperhanger Supervisor Name Role Phone Jyoti Boone Primary Care Provider [phone] Encounter Details Date Type Department Care Team (Late st Contact Info) Description 06/18/2024 Abstract [facility] [place] [facility] [address] [facility] [address] [place] [phone] Jyoti Boone PA [address] [facility] [address] [place] [address] Social History Tobacco Use Types Packs/Day Years [...] friends, or neighbors? Twice a week 05/12/20 How often do you get togethe r with friends or relatives? Once a week 05/12/2024 How often do you attend chur ch or presybeterian services? Never 05/12/2024 Do you belong to any clubs o r organizations such as jainism groups, unions, fraternal or athletic groups, or [...] and heating? Not hard at all 05/12/2024 [facility] of Occupat ional Health - Occupational Stress [...] any time in the past 12 m [facility], were you homeless or living in a retirement (including now)? No 05/12/2024 Comments No Sex and Gender Information Value Date Recorded Sex Assigned at Not on file Legal Sex Female 11:47 PM EDT Gender Identity Not on file Sexual Orientation Not on file documented as of this encounter Plan of Treatment Upcoming Encounters Date Type Department Care Team (Late st Contact Info) Description 07/22/2025 1:30 PM EDT Ancillary Procedure [facility] UND[facility]OD [address] [facility] [address] 07/22/2025 2:40 PM EDT Routine NOM[facility] UNDERWOOD [address] [facility] [place] [address] Leobardo Solares DO [address] [facility] [address] [place], [place] [id number] documented as of this encounter Visit Diagnoses Not on filedocumented in this encounter Care Teams Paperhanger Supervisor Relationship Specialty Start Date End Date Jyoti Boone PA [address] [facility] [address] [place] [address] PCP - General Family Medicine 03/12/24 documented as of this encounter
--- OUTSIDE RECORDS SUMMARY | 2025-06-30 10:40 | XMS_ITS | Encounter Summary ---
Author Organization [facility] Address [address] [facility] [place] [address] Care Team Providers Care Automated Manufacturing Instructor Name Role Phone Jyoti Boone Primary Care Provider [phone] Encounter Details Date Type Department Care Team (Late st Contact Info) Description 06/12/2024 Abstract [facility] [place] [facility] [address] [facility] [address] [place] [address] Jyoti Boone PA [address] [facility] [address] [place] [address] Social History Tobacco Use Types Packs/Day Years [...] often do you attend chur ch or islam services? Never 05/12/2024 Do you belong to any clubs o r organizations such as holiness groups, unions, fraternal or athletic groups, or [...] and heating? Not hard at all 05/12/2024 [facility] of Occupat ional Health - Occupational [...] any time in the past 12 m [facility], were you homeless or living in a nursing home (including now)? No 05/12/2024 Comments No Sex [...] PM EDT Ancillary Procedure NOMTita UNDERWOOD [address] [place] [address] 07/22/2025 2:40 PM EDT Routine NOMTita UNDERWOOD [address] [place] [address] Leobardo Solares DO [address] [facility] [address] [place], [place] [phone] documented as of this encounter Visit Diagnoses Not on filedocumented in this encounter Care Teams Automated Manufacturing Instructor Relationship Specialty Start Date End Date Jyoti Boone PA [address] [facility] [address] [place] [address] PCP - General Family Medicine 03/12/24 documented as of this encounter
--- OUTSIDE RECORDS SUMMARY | 2025-06-30 10:40 | XMS_ITS | Encounter Summary ---
Author Organization [facility] Address [address] [facility] [place] [address] Care Team Providers Care Hatchery Laborer Name Role Phone Jyoti Boone Primary Care Provider [phone] Encounter Details Date Type Department Care Team (Late st Contact Info) Description 04/30/2025 Abstract [facility] OBGYN [address] [facility] [place] [address] Leobardo Solares DO [address] [facility] [address] [place], [facility] Social History Tobacco Use Types Packs/Day Years [...] often do you attend chur ch or pentecostal services? Never 05/12/2024 Do you belong to any clubs o r organizations such as adventist groups, unions, fraternal or athletic groups, or [...] and heating? Not hard at all 05/12/2024 [facility] [place] of Occupat ional Health - Occupational Stress [...] any time in the past 12 m [facility], were you homeless or living in a chcf (including now)? No 05/12/2024 Estimated Date of [...] 1:30 PM EDT Ancillary Procedure [facility] Brannon UNDERWOOD [address] [place] [address] 07/22/2025 2:40 PM EDT Routine [facility] Brannon MADDENN [address] [place] [address] Leobardo Solares DO [address] [place], [place] [id number] documented as of this encounter Visit Diagnoses Not on filedocumented in this encounter Care Teams Hatchery Laborer Relationship Specialty Start Date End Date Jyoti Boone PA [address] [facility] [address] [place] [address] PCP - General Family Medicine 03/12/24 documented as of this encounter
--- OUTSIDE RECORDS SUMMARY | 2025-06-30 10:40 | XMS_ITS | Encounter Summary ---
Author Organization [facility] Address [address] [facility] [place] [address] Care Team Providers Care Repairer Auto Clocks Name Role Phone Jyoti Boone Primary Care Provider [phone] Encounter Details Date Type Department Care Team (Late st Contact Info) Description 06/24/2025 Telephone [facility] Brannon UNDERWOOD [address] [place] [address] Suzi Iniguez PA [address] [facility] [address] [place], [facility] Social History Tobacco Use Types Packs/Day [...] often do you attend chur ch or advent services? Never 05/12/2024 Do you belong to any clubs o r organizations such as pentecostal groups, unions, fraternal or athletic groups, or [...] Recorded Patient Health Questionnaire-2 Score 0 05/08/2025 [facility] of Occupat ional Health - Occupational Stress [...] any time in the past 12 m [facility], were you homeless or living in a assisted (including now)? No 05/12/2024 Estimated Date of Delivery Comme nts Yes 12/05/2025 Based on last me nstrual period of 02/28/2025 Sex and Gender Information Value Date Recorded Sex Assigned at Not on file Legal Sex Female 11:47 PM EDT Gender Identity Not on file Sexual Orientation Not on file documented as of this encounter Miscellaneous Notes * Telephone Encounter - Gala Farmer LPN - 06/24/2025 10:20 AM EDT Patient was called with Culture results and was made aware we will send scripts into pharmacy in a detailed message if any questions reach out to office. documented in this encounter Plan of Treatment Upcoming Encounters Date Type Department Care Team (Late st Contact Info) Description 07/22/2025 1:30 PM EDT Ancillary Procedure [facility] Brannon UNDERWOOD [address] [facility] [place] [address] 07/22/2025 2:40 PM EDT Routine [facility] Brannon DE LUNAGYN [address] [facility] [place] [address] Leobardo Solares DO [address] [place], [place] [id number] documented as of this encounter Visit Diagnoses Diagnosis BV (bacterial vaginosis) Unspecified vaginitis and vulvovaginitis Yeast infection documented in this encounter Care Teams Repairer Auto Clocks Relationship Specialty Start Date End Date Jyoti Boone PA [address] [facility] [address] [place] [address] PCP - General Family Medicine 03/12/24 documented as of this encounter
--- OUTSIDE RECORDS SUMMARY | 2025-06-30 10:40 | XMS_ITS | Clinical Summary ---
Author Organization [facility] Address [address] [place] [address] Care Team Providers Care Cook Helper Vegetable Name Role Phone Jyoti Boone Primary Care Provider [phone] Allergies No known active allergies Medications MV-Min-Fe Fum-FA-DHA ( 1 PO) Take by mouth Active metroNIDAZOLE (Flagyl) 500 MG tabletIndicatio ns:BV (bacterial vaginosis) Take 1 tablet (500 mg) by mouth in the morning and 1 tablet (500 mg) before bedtime. Do all this for 7 days. Do not drink alcohol while taking this medication. 14 tablet 5 07/01/20 25 Active terconazole (Terazol 7) 0.4 % vaginal creamIndication s:Yeast infection Insert 1 applicator into the vagina at bedtime for 7 days 45 g 5 07/01/20 25 Active Active Problems Problem Noted Date Diagnosed Date 16 weeks gestation of ([facility]) 2024 Class 2 obesity due to exces s calories without serious comorbidity with body mass index (BMI) of 37.0 to 37.9 in adult 11/12/2024 Dysmenorrhea 06/11/2024 Human papilloma virus (HPV) infection 11/13/2023 Osteopenia of left hip 11/13/2023 Polyarthralgia 11/13/2023 Dry skin dermatitis 11/13/2023 Estimated Date of Delivery Comme nts Yes 12/05/2025 Based on last me nstrual period of 02/28/2025 Resolved Problems Problem Noted Date Diagnosed Date Resolved Date Obesity (BMI 30.0-34.9) 11/13/202311/01 Encounters Date Type Department Care Team Description 06/24/2025 [place] [address] Suzi Iniguez PA 06/22/2025 3:30 [place] [address] Suzi Iniguez PA 16 weeks gestation of ([facility]); Well woman exam with routine gynecological exam; Screening, , for anatomic survey ([facility]); AMA (advanced maternal age) multigravida 35+, second trimester ([facility]) 06/22/2025 Clinisync Result Encounter NOMS External Department Unsolicited Provider, Generic External Data 06/22/2025 External Result Encounter NOMS External Department Unsolicited Suzi Iniguez PA 06/22/2025 [place] [address] Suzi Iniguez PA 06/22/2025 Travel 05/27/2025 3:50 [place] [address] Leobardo Solares, First trimester ([facility]); 12 weeks gestation of ([facility]) 05/27/2025 [place] [address] Leobardo Solares DO 05/27/2025 Travel 05/08/2025 10:30 AM EDT [facility] [address] [place] [address] Jyoti Boone PA Strain of left ankle, initial encounter (Primary Dx) 05/08/2025 Clinisync Result Encounter NOMS External Department Unsolicited Leobardo Solares DO 05/08/2025 Bamboo flowsheet [facility] [address] [place] [address] Jyoti Boone PA 05/08/2025 Travel 04/30/2025 2:00 PM EDT Initial [facility] [place] [address] [place]: 8w5d 04/30/2025 1:30 PM EDT Ancillary Procedure [facility] [place] [address] [place] [address] Missed menses; Positive urine test ([facility]) 04/30/2025 Abstract [facility] [address] [place] [address] [place] [address] Leobardo Solares DO 04/30/2025 Travel from Last 3 Months Immunizations Immunization Administration Dates Next Due DTP 04/18/1993, 0,04/02/1989,1988,1988 HiB, unspecified 03/04/1990 MMR 05/09/2000,11/05/1989 OPV 04/18/1993, 0,1988,1988 Pfizer Purple Cap SARS-CoV-2 Vaccination 03/18/2021,02/25/2021 Family History Medical History Relation Name Comments Arthritis Father Suresh Mccullough Diabetes Father Suresh Mccullough Hearing loss Father Suresh Mccullough Vision loss Father Suresh Mccullough Muscular dystrophy Maternal Grandfather Marlon Dubois Vision loss Maternal Grandfather Marlon Dubois Cancer Maternal Grandmother Jacki Dubois Diabetes Paternal Grandmother April Yeison Heart disease Paternal Grandmother April Latham Relation Name Status Comments Father Suresh Mccullough Maternal Grandfather Marlon Dubois Maternal Grandmother Jacki Dubois Paternal Grandmother April Latham Son x1 Social History Tobacco Use Types Packs/Day Years Used Date Smoking Tobacco: Never Smokeless Tobacco: Never Tobacco Cessation:Counseling Given: Not Answered Alcohol Use Standard Drinks/Week Comments Never 0 [...] 05/12/2024 How often do you attend chur or orthodoxy services? Never 05/12/2024 Do you belong to any clubs o r organizations such as pentecostalism groups, unions, fraternal or athletic groups, or [...] Recorded Patient Health Questionnaire-2 Score 0 05/08/2025 [facility] Occupat ional Health - Occupational Stress [...] any time in the past 12 m [facility], were you homeless or living in a senior care (including now)? No 05/12/2024 Estimated Date of Delivery Comme nts Yes 12/05/2025 Based on last me nstrual period of 02/28/2025 Sex and Gender Information Value Date Recorded Sex Assigned at Not on file Legal Sex Female 11:47 PM EDT Gender Identity Not on file Sexual Orientation Not on file Last Filed Vital Signs Vital Sign Reading Time Taken Comments Blood Pressure 116/72 06/22/2025 3:47 PM EDT Pulse 84 05/08/2025 10:33 AM EDT Temperature - - Respiratory Rate 16 05/08/2025 10:33 AM EDT Oxygen Saturation 98% 05/08/2025 10:33 AM EDT Inhaled Oxygen Concentration - - Weight 113 kg (250 lb) 06/22/2025 3:47 PM EDT Height 170.2 cm (5' 7 ) 05/08/2025 10:33 AM EDT Body Mass Index 39.16 05/08/2025 10:33 AM EDT Plan of Treatment Upcoming Encounters Date Type Department Care Team (Late st Contact Info) Description 07/22/2025 1:30 PM EDT Ancillary Procedure [facility] OBANTHONY [address] [place] [address] [place] [phone] 07/22/2025 2:40 PM EDT Routine [facility] [address] [place] [address] Leobardo Solares, [address] [place] [address] Health Maintenance Due Date Last Done Comments Pap Smear 2009 Cervical Cancer Screening 2018 HPV/Cotest 2018 Influenza Vaccine (#1) 2025 Procedures Procedure Name Priority Date/Time Associated Diagnosis Comments RECURRENT VAGINITIS (HTRX) Routine 06/22/2025 4:47 PM EDT POCT URINALYSIS DIPSTICK Routine 06/22/2025 4:08 PM EDT 16 weeks gestation of ([facility]) Well woman exam with routine gynecological exam AMA (advanced maternal age) multigravida 35+, second trimester ([facility]) IGP,APTIMA HPV,AGE GDLN Routine 06/22/2025 3:50 PM EDT POCT URINALYSIS DIPSTICK Routine 05/27/2025 4:14 PM EDT First trimester ([facility]) URINE CULTURE, ROUTINE Routine 05/08/2025 12:49 PM EDT [facility] DRUG SCREEN RAPID (URINE) Routine 05/08/2025 12:49 PM EDT HBSAG SCREEN Routine 05/08/2025 12:09 PM EDT RAPID PLASMA REAGIN, QUANT Routine 05/08/2025 12:09 PM EDT HCV ANTIBODY RFX TO QUANT PCR Routine 05/08/2025 12:09 PM EDT ALL RUBELLA IGG AB Routine 05/08/2025 12 :09 PM EDT HIV AB/P24 AG WITH REFLEX Routine 05/08/2025 12:09 PM EDT ALL TYPE AND SCREEN Routine 05/08/2025 1 2:09 PM EDT MLR HEMOGLOBIN A1C Routine 05/08/2025 12 :09 PM EDT ALL CBC WITH AUTO DIFF Routine 05/08/2025 12:02 PM EDT POCT URINALYSIS DIPSTICK Routine 04/30/2025 2:35 PM EDT Missed menses POCT , URINE Routine 04/30/2025 1:47 PM EDT Missed menses US OB TRANSVAGINAL Routine 04/30/2025 1: 39 PM EDT Missed menses Positive urine test ([facility]) from Last 3 Months Results * (ABNORMAL) RECURRENT VAGINITIS (HTRX) (06/22/2025 4:47 PM EDT) [facility] ATOPOBIUM VAGINAE 22.17(A) 19.961 - 24.689 ppm 06/24/2025 6:46 AM EDT [facility] ATOPOBIUM VAGINAE Detected(A) 19.961 - 24.689 ppm 06/24/2025 6:46 AM EDT [facility] BVAB 2,3 (BACTERIAL VAGINOSIS ASSOCIATED BACTERIA 2, 3); MOBILUNCUS SPP 0 19.961 - 24.689 ppm 06/24/2025 6:46 AM EDT [facility] BVAB 2,3 (BACTERIAL VAGINOSIS ASSOCIATED BACTERIA 2, 3); MOBILUNCUS SPP Not Detected 19.961 - 24.689 ppm 06/24/2025 6:46 AM EDT [facility] SALIMA ALBICANS, PARAPSILOSIS, TROPICALIS 24.806(A) 23.000 - 30.347 ppm 06/24/2025 6:46 AM EDT [facility] SALIMA ALBICANS, PARAPSILOSIS, TROPICALIS Detected(A) 23.000 - 30.347 ppm 06/24/2025 6:46 AM EDT [facility] SALIMA GLABRATA 0 23.000 - 31.618 ppm 06/24/2025 6:46 AM EDT [facility] SALIMA GLABRATA Not Detected 23.000 - 31.618 ppm 06/24/2025 6:46 AM EDT [facility] SALIMA KRUSEI 0 23.000 - 30.873 ppm 06/24/2025 6:46 AM EDT [facility] SALIMA KRUSEI Not Detected 23.000 - 30.873 ppm 06/24/2025 6:46 AM EDT [facility] CHLAMYDIA TRACHOMATIS 0 23.000 - 31.586 ppm 06/24/2025 6:46 AM EDT [facility] CHLAMYDIA TRACHOMATIS Not Detected 23.000 - 31.586 ppm 06/24/2025 6:46 AM EDT [facility] GARDNERELLA VAGINALIS 16.422(A) 19.961 - 24.689 ppm 06/24/2025 6:46 AM EDT [facility] GARDNERELLA VAGINALIS Detected(A) 19.961 - 24.689 ppm 06/24/2025 6:46 AM EDT [facility] MEGASPHAERA (TYPES 1, 2) 0 19.961 - 24.689 ppm 06/24/2025 6:46 AM EDT [facility] MEGASPHAERA (TYPES 1, 2) Not Detected 19.961 - 24.689 ppm 06/24/2025 6:46 AM EDT [facility] NEISSERIA GONORRHOEAE 0 23.000 - 32.587 ppm 06/24/2025 6:46 AM EDT [facility] NEISSERIA GONORRHOEAE Not Detected 23.000 - 32.587 ppm 06/24/2025 6:46 AM EDT [facility] TRICHOMONAS VAGINALIS 0 23.000 - 31.995 ppm 06/24/2025 6:46 AM EDT [facility] TRICHOMONAS VAGINALIS Not Detected 23.000 - 31.995 ppm 06/24/2025 6:46 AM EDT [facility] MYCOPLASMA GENITALIUM 0 19.961 - 24.689 ppm 06/24/2025 6:46 AM EDT [facility] MYCOPLASMA GENITALIUM Not Detected 19.961 - 24.689 ppm 06/24/2025 6:46 AM EDT [facility] Tissue 06/22/2025 4:47 PM EDT 06/24/2025 1:56 AM EDT Suzi BROWNING LAB BLOOD ORDERABLES Final Resul t [facility] [address] [id number] * (ABNORMAL) POCT urinalysis dipstick manually resulted (06/22/2025 4:08 PM EDT) Only the most recent of3 resultswithin the time period is included. Color, UA Yellow Clarity, UA Cloudy Glucose, [...] CARE TEST ENTER/EDIT OR DERABLES Final Result * IGP,APTIMA HPV,AGE GDLN (06/22/2025 3:50 PM EDT) AGE GDLN ACOG TESTING Note . [facility] Comment: TESTS RESULT FLAG UNITS REF RANGE LAB Clinician Provided Cytology Information Source.............Cervix Other.............. No. of containers..01 ThinPrep Vial Age Algo ACOG Nicol... 30 01 FLAG LEGEND: L-Low Normal,H-High Normal,LL-Alert Low,HH-Alert High <-Panic Low,>-Panic High,A-Abnormal,AA-Critical Abnormal Performed at: 01 =[facility] [phone] Tonya Rockwell MD, IGP, APTIMA HPV, RFX 16/18,45 Note . [facility] Comment: TESTS RESULT FLAG UNITS REF RANGE LAB DIAGNOSIS: 02 NEGATIVE FOR INTRAEPITHELIAL LESION OR MALIGNANCY. FUNGAL ORGANISMS MORPHOLOGICALLY CONSISTENT WITH SALIMA SPECIES ARE PRESENT. Specimen adequacy: 02 Satisfactory for evaluation. No endocervical component is identified. An endocervical component is not commonly seen in the patient. Performed by: 02 Shelley Kristy Gardiner, Gun Repair Clerk . 02 Note: Note 02 The Pap [...] <-Panic Low,>-Panic High,A-Abnormal,AA-Critical Abnormal Performed at: [address] [place] [address] [address] Tonya Rockwell MD, HPV APTIMA Negative Negative TB Comment: This nucleic acid amplification test detects fourteen high- risk HPV types (16,18,31,33,35,39,45,51,52,56,58,59,66,68) without differentiation. Performed at: =[address] [id number] Repairer Screen Crusher: Tonay Rockwell MD, Phone: [phone] Performed at: [address] [id number] Repairer Screen Crusher: Tonya Rockwell MD, Phone: [phone] 06/22/2025 3:50 PM EDT 06/23/2025 6:54 AM EDT Narrative CLINISY[facility] - 06/26/2025 4:09 PM EDT SPATULA-ALONE CERVIX us Leobardo Solares DO LAB BLOOD ORDERABLES Final Resul t [facility] * URINE CULTURE, ROUTINE (05/08/2025 12:49 PM EDT) URINE CULTURE, ROUTINE Urine Culture, Routine [facility] URINE CULTURE, ROUTINE Mixed urogenital modesto [facility] URINE CULTURE, ROUTINE 50,000-100,000 colony forming units per mL [facility] URINE CULTURE, ROUTINE [facility]formed at: - [facility] URINE CULTURE, ROUTINE [address] [place], [place] [id number] [facility] URINE CULTURE, ROUTINE Repairer Screen Crusher: Harshil Ho PhD, Phone: [phone] [facility] 05/08/2025 12:4 9 PM EDT 05/08/2025 12:50 PM EDT Narrative CLINISYNC - 05/09/2025 8:08 PM EDT us Generic External Data Provider LAB BLOOD ORDERAB LES Final Result [facility] * [facility] DRUG SCREEN RAPID (URINE) (05/08/2025 12:49 PM EDT) CANNABINOID SCREEN URINE NEGATIVE NEGATIVE [facility] PHENCYCLIDINE SCREEN URINE NEGATIVE NEGATIVE [facility] COCAINE SCREEN URINE NEGATIVE NEGATIVE TB[facility] METHAMPHETAMINES SCREEN URINE NEGATIVE NEGATIVE TBH OPIATE SCREEN URINE NEGATIVE NEGATIVE TBH AMPHETAMINE SCREEN URINE NEGATIVE NEGATIVE TBH BENZODIAZEPINES SCREEN URINE NEGATIVE NEGATIVE TBH TRICYCLIC ANTIDEPRESSANT URINE NEGATIVE NEGATIVE TBH METHADONE SCREEN URINE NEGATIVE NEGATIVE TBH BARBITURATES SCREEN URINE NEGATIVE NEGATIVE TBH OXYCODONE SCREEN URINE NEGATIVE NEGATIVE TBH BUPRENORPHINE SCREEN URINE NEGATIVE NEGATIVE [facility] Comment: DRUG CLASS TEST SYSTEM CUT-OFF CONCENTRATIONS ARE FOLLOWS: AMP (Amphetamine): 500 ng/mL BAR (Barbiturates): 200 ng/mL BZO (Benzodiazepines): 150 ng/mL BUP (Buprenorphine): 10 ng/mL KOBE (Cocaine): 150 ng/mL mAMP (Methamphetamine): 500 ng/mL MTD (Methadone): 200 ng/mL OPI (Opiates): 100 ng/mL OXY (Oxycodone): 100 ng/mL PCP (Phencyclidine): 25 ng/mL THC (Cannabinoids): 50 ng/mL TCA (Trycyclic Antidepressants): 300 ng/mL 05/08/2025 12:4 9 PM EDT 05/08/2025 12:50 PM EDT Narrative CLINISYNC - 05/08/2025 2:40 PM EDT Generic External Data Provider CL[facility] F inal Result Performing Organization Address [facility] de Phone Number [facility] * HBSAG SCREEN (05/08/2025 12:09 PM EDT) Pathologist [facility] HBSAG SCREEN Negative Negative [facility] Comment: Performed at: [address] [id number] Repairer Screen Crusher: Harshil Ho PhD, Phone: [phone] 05/08/2025 12:0 9 PM EDT 05/08/2025 12:15 PM EDT Narrative CLINISYNC - 05/09/2025 1:10 PM EDT Generic External Data Provider LAB BLOOD ORDERAB LES Final Result Performing Organization Address [facility] de Phone Number [facility] * RAPID PLASMA REAGIN, QUANT (05/08/2025 12:09 PM EDT) Pathologist [facility] RAPID PLASMA REAGIN, QUANT Non Reactive NonRea<1: 1 titer [facility] Comment: Please Note: This test does not meet current guidelines for screening and diagnosis of syphilis. This test is intended for following treatment response in patients being treated for syphilis infection. To screen for syphilis infection, a reflex cascade that includes both RPR and a treponema-specific assay should be utilized, such as Treponema pallidum (Syphilis) Screening [place] (150345) or Rapid Plasma Reagin (RPR) Test With Reflex to Quantitative RPR and Confirmatory Treponema pallidum Antibodies (143120). Performed at: [address] [id number] Repairer Screen Crusher: Harshil Ho PhD, Phone: [phone] 05/08/2025 12:0 9 PM EDT 05/08/2025 12:15 PM EDT Narrative CLINISYNC - 05/09/2025 1:10 PM EDT Generic External Data Provider LAB BLOOD ORDERAB LES Final Result Performing Organization Address [facility] Co de Phone Number [facility] * HIV AB/P24 AG WITH REFLEX (05/08/2025 12:09 PM EDT) Pathologist [facility] HIV AB/P24 AG SCREEN Non Reactive Non Reactive [facility] Comment: HIV-1/HIV-2 antibodies and HIV-1 p24 antigen were NOT detected. There is no laboratory evidence of HIV infection. HIV Negative Performed at: [address] [id number] Repairer Screen Crusher: Harshil Ho PhD, Phone: [phone] 05/08/2025 12:0 9 PM EDT 05/08/2025 12:15 PM EDT Narrative CLINISYNC - 05/09/2025 4:07 AM EDT Generic External Data Provider LAB BLOOD ORDERAB LES Final Result Performing Organization Address [facility] de Phone Number [facility] * HCV ANTIBODY RFX TO QUANT PCR (05/08/2025 12:09 PM EDT) Pathologist [facility] HCV AB Non Reactive Non Reactive [facility] INTERPRETATION: Comment . [facility] Comment: Not infected with HCV unless early or acute infection is suspected (which may be delayed in an immunocompromised individual), or other evidence exists to indicate HCV infection. Performed at: [address] [id number] Repairer Screen Crusher: Harshil Ho PhD, Phone: [phone] 05/08/2025 12:0 9 PM EDT 05/08/2025 12:15 PM EDT Narrative CLINISYNC - 05/09/2025 6:07 AM EDT Leobardo Solares DO LAB BLOOD ORDERABLES Final Resul t [facility] * MLR HEMOGLOBIN A1C (05/08/2025 12:09 PM EDT) Pathologist [facility] GLYCOHEMOGLOBIN A1C 5.2 4.5 - 6.2 % [facility] Comment: ADA RECOMMENDED LIMIT 4.0 - 6.0 ADA THERAPEUTIC TARGET < 7.0 ACTION SUGGESTED > 7.0 ESTIMATED AVERAGE GLUCOSE 103 mg/dL TB 05/08/2025 12:0 9 PM EDT 05/08/2025 12:15 PM EDT Narrative CLINISYNC - 05/08/2025 12:47 PM EDT [facility] Sujatha DO CLINISYNC Final Result Performing Organization Address [facility]/ZIP Co de Phone Number [facility] * ALL TYPE AND SCREEN (05/08/2025 12:09 PM EDT) [facility] BLOOD TYPE A Positive [facility] ANTIBODY SCREEN NEGATIVE TB 05/08/2025 12:0 9 PM EDT 05/08/2025 12:15 PM EDT Narrative CLINISYNC - 05/08/2025 2:[address] [facility] Final Result Performing Organization Address City/[facility]/ZIP Co de Phone Number [facility] * ALL RUBELLA IGG AB (05/08/2025 12:09 PM EDT) [facility] RUBELLA ANTIBODIES, IGG 1.73 Immune >0.99 index [facility] Comment: Non-immune <0.90 Equivocal 0.90 - 0.99 Immune >0.99 Performed at: [address] [id number] Repairer Screen Crusher: Harshil Ho PhD, Phone: [phone] 05/08/2025 12:0 9 PM EDT 05/08/2025 12:15 PM EDT Narrative CLINISYNC - 05/09/2025 6:07 AM EDT us Leobardo Sujatha DO CLINISYNC Final Result [facility] * (ABNORMAL) ALL CBC WITH AUTO DIFF (05/08/2025 12:02 PM EDT) TB WBC 11.2(H) 4.0 - 11.0 10 3/uL TBH TBH RBC 4.62 4.20 - 5.40 10 6/uL TBH TBH HGB 12.8 12.0 - 16.0 g/dL TBH TBH HCT 39.0 36.0 - 48.0 % TBH TBH MCV 84.4 81.0 - 99.0 fL TBH TBH MCH 27.7 26.7 - 34.0 pg TBH TBH MCHC 32.8 29.9 - 35.2 g/dL TBH TBH RDW 13.4 11.0 - 15.0 % TBH TBH PLT 306 150 - 450 10 3/uL TBH TBH MPV 9.6 9.5 - 13.5 fL TBH NEUTROPHILS PERCENT AUTO 80.7(H) 43.0 - 75.0 % TBH LYMPHOCYTES PERCENT AUTO 10.9(L) 20.5 - 60.0 % TB[facility] MONOCYTES PERCENT AUTO 6.3 1.7 - 12.0 % [facility]H TBH EO % 1.4 0.9 - 7.0 % [facility]H BASOPHILS PERCENT AUTO 0.4 0.2 - 2.0 % [facility] IMMATURE GRANULOCYTES PCT AUTO 0.3 0.0 - 0.5 % TBH NEUTROPHILS ABSOLUTE AUTO 9.1(H) 1.4 - 6.5 10 3/uL TBH LYMPHOCYTES ABSOLUTE AUTO 1.2 1.2 - 3.8 10 3/uL TBH MONOCYTES ABSOLUTE AUTO 0.7 0.3 - 0.8 10 3/uL TBH TBH EO # 0.2 0.0 - 0.7 10 3/uL TBH BASOPHILS ABSOLUTE AUTO 0.0 0.0 - 0.1 10 3/uL TBH IMMATURE GRANULOCYTES ABS AUTO 0.03 0.00 - 0.03 10 3/uL [facility] 05/08/2025 12:0 2 PM EDT 05/08/2025 12:15 PM EDT Narrative [facility] - 05/08/2025 12:21 PM EDT us Generic External Data Provider RENYISAACHAYLEE Bety inal Result [facility] * (ABNORMAL) POCT , urine manually resulted (04/30/2025 1:47 PM EDT) Preg Test, Ur Positive Negative Urine 04/30/2025 1:47 PM EDT us Leobardo Sujatha DO POINT OF CARE TEST ENTER/EDIT OR DERABLES Final Result * US OB transvaginal (04/30/2025 1:39 PM EDT) Anatomical Region Laterality Modality Body Ultrasound 05/01/2025 8:27 AM EDT Narrative 05/01/2025 8:27 AM EDT EXAM: US OB TRANSVAGINAL HISTORY: Dating. COMPARISON: [...] II, MD, PHD at 01-May-2025 08:25:50 AM [facility] Procedure Note Candida Godwin MD - 05/01/2025 EXAM: US OB TRANSVAGINAL HISTORY: Dating. COMPARISON: None available. TECHNIQUE: Two-dimensional transvaginal grayscale ultrasound imaging ofthe pelvis was performed. Color Doppler evaluation of the ovaries was alsoperformed. FINDINGS: The uterus demonstrates a normal homogeneous echotexture. The cervixmeasures 4.2 cm in length and the cervical os is closed. The right ovary measures 3.2 x 1.4 x 1.8 cm and demonstrates a normalechotexture. There is normal color Doppler flow. The left ovary is not visualized due to overlying bowel gas. No fluid is present within the cul-de-sac. There is a single, live intrauterine gestation identified with a fetalheart rate of 167 beats per minute and a crown-rump length measurement of1.6 cm, correlating to a gestational age of 8 weeks 0 days (+/- 5 days).There is no subchorionic hemorrhage visualized. A yolk sac isvisualized. IMPRESSION: 1. Single, live intrauterine gestation 8 weeks, 5 days by LMP. Today'sultrasound measurements correlate with a gestational age of 8 weeks 0 days(+/- 5 days). JOSE JUAN by today's ultrasound is 12/10/2025. 2. Normal color Doppler evaluation of the right ovary, the left ovary wasnot visualized. Interpreted by: Electronically signed by CANDIDA GODWIN II, MD, PHD [id number] 08:25:50 AM [facility] us Leobardo Sujatha DO IMG OB US PROCEDURES Final Resul t from Last 3 Months Insurance [employer] Care Teams Cook Helper Vegetable Relationship Specialty Start Date End Date Jyoti Boone PA [address] [address] PCP - General Family Medicine 03/12/24
--- OUTSIDE RECORDS SUMMARY | 2025-06-30 10:40 | XMS_ITS | Encounter Summary ---
Author Organization [facility] Address [address] [facility] [place] [address] Care Team Providers Care Organ Grinder Name Role Phone Jyoti Boone Primary Care Provider [phone] Encounter Details Date Type Department Care Team (Late st Contact Info) Description 06/12/2024 Abstract [facility] [address] [facility] 110 [place] [address] Jyoti Boone PA [address] [facility] 110 [place] [address] Social History Tobacco Use Types Packs/Day Years [...] often do you attend chur ch or amish services? Never 05/12/2024 Do you belong to any clubs o r organizations such as druze groups, unions, fraternal or athletic groups, or [...] and heating? Not hard at all 05/12/2024 [facility] of Occupat ional Health - Occupational [...] any time in the past 12 m [facility], were you homeless or living in a senior living (including now)? No 05/12/2024 Comments No Sex [...] PM EDT Ancillary Procedure [facility]OD [address] [facility] [place] [address] 07/22/2025 2:40 PM EDT Routine [facility]OM[facility] UNDERWOOD [address] [facility] [place] [address] Leobardo Solares DO [address] [facility] [address] [place], [place] [id number] documented as of this encounter Visit Diagnoses Not on filedocumented in this encounter Care Teams Organ Grinder Relationship Specialty Start Date End Date Jyoti Boone PA 112 [facility] 110 [place] [address] PCP - General Family Medicine 03/12/24 documented as of this encounter
--- OUTSIDE RECORDS SUMMARY | 2025-06-30 10:40 | XMS_ITS | Encounter Summary ---
Author Organization [facility] Address [address] [facility] [place] [address] Care Team Providers Care Sourcing Assistant Name Role Phone Jyoti Boone Primary Care Provider [phone] Encounter Details Date Type Department Care Team (Latest Contact Info) Description 06/22/2025 Travel Social History Tobacco Use Types Packs/Day Years [...] How often do you attend chur or anabaptism services? Never 05/12/2024 Do you belong to any clubs o r organizations such as christian groups, unions, fraternal or athletic groups, or [...] Recorded Patient Health Questionnaire-2 Score 0 05/08/2025 [facility] of Occupat ional Health - Occupational [...] any time in the past 12 m [facility], were you homeless or living in a fpc (including now)? No 05/12/2024 Estimated Date of [...] PM EDT Ancillary Procedure NOMTita UNDERWOOD [address] [place] [address] 07/22/2025 2:40 PM EDT Routine [facility] Brannon UNDERWOOD [address] [facility] [place] [place] [address] Leobardo Solares DO [address] [place], [place] [id number] documented as of this encounter Visit Diagnoses Not on filedocumented in this encounter Care Teams Sourcing Assistant Relationship Specialty Start Date End Date Jyoti Boone PA 112 [facility] 110 [place] [address] PCP - General Family Medicine 03/12/24 documented as of this encounter
--- OUTSIDE RECORDS SUMMARY | 2025-06-30 10:40 | XMS_ITS | Encounter Summary ---
Author Organization [facility] Address [address] [facility] [place] [address] Care Team Providers Care Remelt Pan Tank Operator Name Role Phone Jyoti Boone Primary Care Provider [phone] Encounter Details Date Type Department Care Team (Late st Contact Info) Description 06/22/2025 Bamboo flowsheet [facility] Brannon UNDERWOOD [address] [facility] [place] [address] Suzi Iniguez PA [address] [facility] [address] [place], [facility] Social History Tobacco Use Types Packs/Day [...] often do you attend chur ch or moravian services? Never 05/12/2024 Do you belong to any clubs o r organizations such as sikhism groups, unions, fraternal or athletic groups, or [...] Recorded Patient Health Questionnaire-2 Score 0 05/08/2025 [facility] of Occupat ional Health - Occupational [...] any time in the past 12 m [facility], were you homeless or living in a half-way (including now)? No 05/12/2024 Estimated Date of [...] EDT Ancillary Procedure [facility] Brannon UNDERWOOD [address] [facility] [place] [address] 07/22/2025 2:40 PM EDT Routine [facility] Brannon UNDERWOOD [address] [facility] [place] [address] Leobardo Solares DO 102 [place], [place] [id number] documented as of this encounter Visit Diagnoses Not on filedocumented in this encounter Care Teams Remelt Pan Tank Operator Relationship Specialty Start Date End Date Jyoti Boone PA 112 [facility] 110 [place] [address] PCP - General Family Medicine 03/12/24 documented as of this encounter
--- OUTSIDE RECORDS SUMMARY | 2025-06-30 10:40 | XMS_ITS | Encounter Summary ---
Author Organization [facility] Address [address] [facility] [place] [address] Care Team Providers Care Wig Maker Name Role Phone Jyoti Boone Primary Care Provider [phone] Encounter Details Date Type Department Care Team (Late st Contact Info) Description 06/24/2024 Abstract [facility] [facility] [address] [facility] 110 [place] [address] Jyoti Boone PA [address] [facility] 110 [place] [address] Social History Tobacco Use Types Packs/Day Years [...] any clubs o r organizations such as caodaism groups, unions, fraternal or athletic groups, or [...] and heating? Not hard at all 05/12/2024 [facility] of Occupat ional Health - Occupational Stress [...] any time in the past 12 m [facility], were you homeless or living in a half-way (including now)? No 05/12/2024 Comments No Sex [...] EDT Ancillary Procedure NOMTita UNDERWOOD [address] [facility] [address] 07/22/2025 2:40 PM EDT Routine NOMTita UNDERWOOD [address] [facility] [place] [address] Leobardo Solares DO [address] [facility] [address] [place], [place] [id number] documented as of this encounter Visit Diagnoses Not on filedocumented in this encounter Care Teams Wig Maker Relationship Specialty Start Date End Date Jyoti Boone PA 112 [facility] 110 [place] [address] PCP - General Family Medicine 03/12/24 documented as of this encounter
--- OUTSIDE RECORDS SUMMARY | 2025-06-30 10:40 | XMS_ITS | Encounter Summary ---
Author Organization [facility] Address [address] [facility] [place] [address] Care Team Providers Care Trash Collector Name Role Phone Jyoti Boone Primary Care Provider [phone] Encounter Details Date Type Department Care Team (Late st Contact Info) Description 06/12/2024 Abstract [facility] [facility] [address] [facility] 110 [place] [address] Jyoti Boone PA [address] [facility] 110 [place] [address] Social History Tobacco Use Types Packs/Day Years [...] often do you attend chur ch or buddhist services? Never 05/12/2024 Do you belong to any clubs o r organizations such as faith groups, unions, fraternal or athletic groups, or [...] and heating? Not hard at all 05/12/2024 [facility] of Occupat ional Health - [...] any time in the past 12 m [facility], were you homeless or living in a correction (including now)? No 05/12/2024 Comments No Sex [...] PM EDT Ancillary Procedure [facility]OM[facility]ita UNDERWOOD [address] [facility] [place] [address] 07/22/2025 2:40 PM EDT Routine NOMTita UNDERWOOD [address] [facility] [place] [address] Leobardo Solares DO [address] [facility] [address] [place], [place] [id number] documented as of this encounter Visit Diagnoses Not on filedocumented in this encounter Care Teams Trash Collector Relationship Specialty Start Date End Date Jyoti Boone PA 112 [facility] 110 [place] [address] PCP - General Family Medicine 03/12/24 documented as of this encounter
--- OUTSIDE RECORDS SUMMARY | 2025-06-30 10:40 | XMS_ITS | Encounter Summary ---
Author Organization [facility] Address [address] [facility] [place] [address] Care Team Providers Care Carcass Washer Name Role Phone Jyoti Boone Primary Care Provider Encounter Details Date Type Department Care Team (Late Contact Info) Description 11/20/2023 Abstract [facility] [place] [facility] [address] [facility] 110 [place] [address] Jyoti Boone PA [address] [facility] 110 [place] [address] Social History Tobacco Use Types Packs/Day Years Used Date Smoking Tobacco: Never Smokeless Tobacco: Never Alcohol Use Standard Drinks/Week Comments Never 0 (1 standard drink = 0.6 oz pur e alcohol) Comments Unknown Sex and Gender Information Value Date Recorded Sex Assigned at Not on file Legal Sex Female 11:47 PM EDT Gender Identity Not on file Sexual Orientation Not on file documented as of this encounter Plan of Treatment Upcoming Encounters Date Type Department Care Team (Late Contact Info) Description 07/22/2025 1:30 PM EDT Ancillary Procedure PHIL UNDERWOOD [address] [place] [address] 07/22/2025 2:40 PM EDT Routine PHIL UNDERWOOD [address] [place] [address] Leobardo Solares DO 102 [place] [address] documented as of this encounter Visit Diagnoses Not on filedocumented in this encounter Care Teams Carcass Washer Relationship Specialty Start Date End Date Jyoti Boone PA [address] [address] PCP - General Family Medicine 03/12/24 documented as of this encounter
--- OUTSIDE RECORDS SUMMARY | 2025-06-30 10:40 | XMS_ITS | Encounter Summary ---
Author Organization [facility] Address [address] [facility] [place] [address] Care Team Providers Care Vp Research Name Role Phone Jyoti Boone Primary Care Provider [phone] Encounter Details Date Type Department Care Team (Late st Contact Info) Description 06/22/2025 Clinisync Result Encounter N[facility] External Department Unsolicited Provider, Generic External Data Social History Tobacco Use Types Packs/Day Years [...] often do you attend chur ch or mandaeism services? Never 05/12/2024 Do you belong to any clubs o r organizations such as jew groups, unions, fraternal or athletic groups, or [...] Recorded Patient Health Questionnaire-2 Score 0 05/08/2025 [facility] of Occupat ional Health - Occupational [...] any time in the past 12 m [facility], were you homeless or living in a penitentiary (including now)? No 05/12/2024 Estimated Date of [...] EDT Ancillary Procedure [facility] Brannon UNDERWOOD [address] [place] [address] 07/22/2025 2:40 PM EDT Routine N[facility] Brannon UNDERWOOD [address] [place] [address] Leobardo Solares DO [address] [facility] [address] [place], [place] [id number] documented as of this encounter Procedures Procedure Name Priority Date/Time Associated Diagnosis Comments IGP,APTIMA HPV,AGE GDLN Routine 06/22/2025 3:50 PM EDT documented in this encounter Results * IGP,APTIMA HPV,AGE GDLN (06/22/2025 3:50 PM EDT) AGE GDLN ACOG TESTING Note . [facility] Comment: TESTS RESULT FLAG UNITS REF RANGE LAB Clinician Provided Cytology Information Source.............Cervix Other.............. No. of containers..01 ThinPrep Vial Age Algo ACOG Nicol... 30-65 01 FLAG LEGEND: L-Low Normal,H-High Normal,LL-Alert Low,HH-Alert High <-Panic Low,>-Panic High,A-Abnormal,AA-Critical Abnormal Performed at: 01 =G [facility] [address] [facility] [place] [address] Tonya Rockwell MD, IGP, APTIMA HPV, RFX [birth year] Note . [facility] Comment: TESTS RESULT FLAG UNITS REF RANGE LAB DIAGNOSIS: 02 NEGATIVE FOR INTRAEPITHELIAL LESION OR MALIGNANCY. FUNGAL ORGANISMS MORPHOLOGICALLY CONSISTENT WITH SALIMA SPECIES ARE PRESENT. Specimen adequacy: 02 Satisfactory for evaluation. No endocervical component is identified. An endocervical component is not commonly seen in the patient. Performed by: Bobby Gardiner, Truck Driver Flatbed . 02 Note: Note 02 The Pap [...] <-Panic Low,>-Panic High,A-Abnormal,AA-Critical Abnormal Performed at: [address] [address] Tonya Rockwell MD, HPV APTIMA Negative Negative TB Comment: This nucleic acid amplification test detects fourteen high- risk HPV types (16,18,31,33,35,39,45,51,52,56,58,59,66,68) without differentiation. Performed at: =[facility] [id number] Boiler Coverer: Tonya Rockwell MD, Phone: [phone] Performed at: [address] [id number] Boiler Coverer: Tonya Rockwell MD, Phone: [phone] 06/22/2025 3:50 PM EDT 06/23/2025 6:54 AM EDT Narrative [facility] - 06/26/2025 4:09 PM EDT SPATULA-ALONE CERVIX us Leobardo Sujatha DO LAB BLOOD ORDERABLES Final Resul t Performing Organization Address City/State/[facility] Co de Phone Number [facility] documented in this encounter Visit Diagnoses Not on filedocumented in this encounter Care Teams Vp Research Relationship Specialty Start Date End Date Jyoti Boone PA [address] [facility] 110 [place] [address] PCP - General Family Medicine 03/12/24 documented as of this encounter
== END 2025-06-30 10:38 | disposition home or self-care (01) ==
LOC: LAB 10:38
PROVIDERS: PCP Physician Assistant; Visit Provider Obstetrics & Gynecology
DX: O26.892 Other specified pregnancy related conditions, second trimester (principal); O09.522 Supervision of elderly multigravida, second trimester; Z3A.16 16 weeks gestation of pregnancy
CPT/HCPCS: 36415; 82105

== ENCOUNTER 2025-07-22 11:16 | Outpatient (OUT) | payer OTHER, SELFPAY ==
--- OUTSIDE RECORDS SUMMARY | 2025-07-22 11:18 | XMS_ITS | Clinical Summary ---
Author Organization [facility] Address [address] [facility] [place] [address] Care Team Providers Care Theatrical Variety Agent Name Role Phone Jyoti Boone Primary Care Provider [phone] Allergies No known active allergies Medications MedicationSigDispense QuantityRefillsLast FilledStart DateEnd DateStatus MV-Min-Fe Fum-FA-DHA ( 1 PO) Take by mouthActive metroNIDAZOLE (Flagyl) 500 MG tablet Indications:BV (bacterial vaginosis)Take 1 tablet (500 mg) by mouth in the morning and 1 tablet (500 mg) before bedtime. Do all this for 7 days. Do not drink alcohol while taking this medication. 14 tablet Expired terconazole (Terazol 7) 0.4 % vaginal cream Indications:Yeast infectionInsert 1 applicator into the vagina at bedtime for 7 days 45 g Expired Active Problems ProblemNoted DateDiagnosed Date16 weeks gestation of ([facility]) 5Class 2 obesity due to excess calories without serious comorbidity with body mass index (BMI) of 37.0 to 37.9 in adult11/12/2024Dysmenorrhea 06/11/2024Human papilloma virus (HPV) urhsadugn79/13/2024Osteopenia of left hip 11/13/20237403Uohawuafhrifmi05/13/2024ry skin frhwaknbxg86/13/2024Estimated Date of AnvyzbsqXpqoeufoMhg35/07/2026ased on last menstrual period of 02/28/2025 Resolved Problems ProblemNoted DateDiagnosed DateResolved DateObesity (BMI 30.0-34.9)11/13/2023 11/12/2024 Encounters DateTypeDepartmentCare SorcYutfdyfgqjk27/07/2025Orders Only [facility] [address] [place] [phone] Lane GinaMK 5Clinisync Result Encounter NOMS External Department Unsolicited Leobardo Solares DO 06/24/2025Telephone [facility] [address] [place] [phone] Suzi Iniguez PA 06/22/2025 3:30 PM EDTRoutine [facility] [address] [place] [address] Suzi Iniguez PA 16 weeks gestation of ([facility]); Well woman exam with routine gynecological exam; Screening, , for anatomic survey ([facility]); AMA (advanced maternal age) multigravida 35+, second trimester ([facility]) 5Clinisync Result Encounter NOMS External Department Unsolicited Provider, Generic External Data 06/22/2025External Result Encounter NOMS External Department Unsolicited Suzi Iniguez PA 06/22/2025amboo flowsheet [facility] [address] [place] [phone] Suzi Iniguez PA 06/22/20253385Lihyqb51/27/2025 3:50 PM EDTRoutine [facility] [address] [place] [phone] Leobardo Solares DO First trimester ([facility]); 12 weeks gestation of ([facility])5Bamboo flowsheet [facility] [address] [place] [phone] Leobardo Solares DO 05/27/20256580Qohekn09/08/2025 10:30 AM EDTOffice Visit [facility] [address] [place] [phone] Jyoti Boone PA Strain of left ankle, initial encounter (Primary Dx)05/08/2025linisync Result Encounter NOMS External Department Unsolicited Leobardo Solares, DO 5Bamboo flowsheet [facility] [address] [place] [phone] Jyoti Boone PA 05/08/20251181Uvfkur71/31/2025 2:00 PM EDTInitial [facility] [address] [place] [address] [place]: 8w5d04/30/2025 1:30 PM EDTAncillary Procedure [facility] [address] [place] [phone] Missed menses; Positive urine test ([facility])5Abstract [facility] [address] [facility] [place] [address] Leobardo Solares, DO 04/30/2025Travelfrom Last 3 Months Immunizations ImmunizationAdministration DatesNext JufDHL0804/18/1993,03/04/1990,04/02/1989, 1988,1988HiB, yybeevcsutn49/04/1836QIY0805/09/2000,11/05/1989OPV 04/18/1993,03/04/1990,1988,1988Pfizer Purple Cap SARS-CoV-2 Brwifwzcpei67/18/2021,02/25/2021 Family History Medical HistoryRelationNameCommentsArthritisFatherJohn LongoriaDiabetesFather Suresh LongoriaHearing lossFatherJohn LongoriaVision lossFatherJohn Mccullough Muscular dystrophyMaternal GrandfatherRichard CobbVision lossMaternal GrandfatherRichard CobbCancerMaternal GrandmotherNancy CobbDiabetesPaternal GrandmotherMargaret PhillipsHeart diseasePaternal GrandmotherMargaret Latham RelationNameStatusCommentsFatherJohn LongoriaMaternal GrandfatherRichard Dubois Maternal GrandmotherNancy CobbPaternal GrandmotherMargaret PhillipsSonx1 Social History Tobacco UseTypesPacks/DayYears UsedDateSmoking Tobacco: NeverSmokeless Tobacco: Never Tobacco Cessation:Counseling Given: Not Answered Alcohol UseStandard Drinks/WeekCommentsNever0 (1 standard drink = 0.6 oz pure alcohol)B1300 Health LiteracyAnswerDate RecordedHow often do you need to have someone help you when you read instructions, pamphlets, or other written material from your doctor or pharmacy?Never05/12/2024Social Connection and Isolation PanelAnswerDate RecordedIn a typical week, how many times do you talk on the phone with family, friends, or neighbors?Twice a week05/12/2024How often do you get together with friends or relatives?Once a week05/12/2024How often do you attend temple or congregational services?Never05/12/2024o you belong to any clubs or organizations such as temple groups, unions, fraternal or athletic anita ups, or school groups?No05/12/2024How often do you attend meetings of the clubs or organizations you belong to?Never05/12/2024re you , , , , never , or living with a partner?Living with partner 05/12/2024UDIT-CAnswerDate RecordedQ1: How often do you have a drink containing alcohol?Never05/12/2024Q2: How many drinks containing alcohol do you have on a typical day when you are drinking?Patient does not drink05/12/2024Q3: How often do you have six or more drinks on one occasion?Never05/12/2024Overall Financial Resource Strain (CARDIA)AnswerDate RecordedHow hard is it for you to pay for the very basics like food, housing, medical care, and heating?Not hard at all 05/12/2024HQ-2AnswerDate RecordedPatient Health Questionnaire-2 Score0 05/08/2025[facility] [place] [facility] - Occupational Stress QuestionnaireAnswerDate RecordedDo you feel stress - tense, restless, nervous, or anxious, or unable to sleep at night because yourmind is troubled all the time - these days?Not at all05/12/2024Exercise Vital SignAnswerDate RecordedOn average, how many days per week do you engage in moderate to strenuous exercise (like a brisk walk)?3 days05/12/2024On average, how many minutes do you engage in exercise at this level?30 min05/12/2024Hunger Vital SignAnswerDate Recorded Within the past 12 months, you worried that your food would run out before you got the money to buymore.Never true05/12/2024Within the past 12 months, the food you bought just didn't last and you didn't have money to get more.Never true 05/12/2024RAPARE - TransportationAnswerDate RecordedIn the past 12 months, has lack of transportation kept you from medical appointments or from getting medications?No05/12/2024In the past 12 months, has lack of transportation kept you from meetings, work, or from getting things needed for daily living?No 05/12/2024Housing Stability Vital SignAnswerDate RecordedIn the last 12 months, was there a time when you were not able to pay the mortgage or rent on time?No 05/12/2024In the past 12 months, how many times have you moved where you were living?t any time in the past 12 months, were you homeless or living in a residential (including now)?No05/12/2024Estimated Date of Delivery WcopjkbzMqr13/07/2026ased on last menstrual period of 02/28/2025Sex and Gender InformationValueDate RecordedSex Assigned at BirthNot on fileLegal SexFemale 12/13/2022 11:47 PM EDTGender IdentityNot on fileSexual OrientationNot on file Last Filed Vital Signs Vital SignReadingTime TakenCommentsBlood Xuqnbwbz139/7209 3:47 PM EDT Fhsfl120805/08/2025 10:33 AM EDTTemperature--Respiratory Xrvz8027 10:33 AM EDTOxygen Vfluvetpqv04%05/08/2025 10:33 AM EDTInhaled Oxygen Concentration-- Vmulhe780 kg (250 lb)06/22/2025 3:47 PM LZBPxgmmz655.2 cm (5' 7 )05/08/2025 10:33 AM EDTBody Mass Index39.16005/08/2025 10:33 AM EDT Plan of Treatment DateTypeDepartmentCare Team (Latest Contact Info)Lclvpkuxmyb00/22/2025 1:30 PM EDTAncillary Procedure [facility] [address] [place] [phone] 07/22/2025 2:40 PM EDTRoutine [facility] [address] [place] [address] SujathaLeobardo blanco, [address] [place], [place] [phone] Health MaintenanceDue DateLast DoneCommentsInfluenza Vaccine (#1)06/01/2025 Cervical Cancer Kupjwlqtp29/22/2030HPV/Prtudg8506/22/2030Pap Smear06/22/2030 06/22/2025 Procedures Procedure NamePriorityDate/TimeAssociated DiagnosisCommentsAFP, SERUM, OPEN SPINA TQPKRKGyyawym97/30/2025 10:45 AM EDT RECURRENT VAGINITIS (HTRX)Yhaupus2706/22/2025 4:47 PM EDT POCT URINALYSIS PDUZIXNPHijxdrr16/22/2025 4:08 PM EDT 16 weeks gestation of ([facility]) Well woman exam with routine gynecological exam AMA (advanced maternal age) multigravida 35+, second trimester ([facility]) IGP,APTIMA HPV,AGE QEARKslssrz28/22/2025 3:50 PM EDT PAP QIAYRYotuhmq54/22/2025 12:00 AM EDTPOCT URINALYSIS PCTBSUIYUvkxnzp95/27/2025 4:14 PM EDT First trimester ([facility]) URINE CULTURE, KKOTUPWPcrmwke79/08/2025 12:49 PM EDT TBH DRUG SCREEN RAPID (URINE)Swdmflx5005/08/2025 12:49 PM EDT HBSAG TJLCZDIfwyrmn66/08/2025 12:09 PM EDT RAPID PLASMA REAGIN, KWLGOAwjmnki78/08/2025 12:09 PM EDT HCV ANTIBODY RFX TO QUANT EEKHywqdxm57/08/2025 12:09 PM EDT ALL RUBELLA IGG XTRomakjh79/08/2025 12:09 PM EDT HIV AB/P24 AG WITH IYIXBOQegpbbe04/08/2025 12:09 PM EDT ALL TYPE AND TIOFYSQwuffax20/08/2025 12:09 PM EDT MLR HEMOGLOBIN I8VKtnncmz51/08/2025 12:09 PM EDT ALL CBC WITH AUTO KYPQUgteeap99/08/2025 12:02 PM EDT POCT URINALYSIS CFXBAKCNFwwwgjv04/31/2025 2:35 PM EDT Missed menses POCT , RHDBNMtaljdj48/31/2025 1:47 PM EDT Missed menses US OB BKINTHAFEGNFUwprhjz01/31/2025 1:39 PM EDT Missed menses Positive urine test ([facility]) from Last 3 Months Results * AFP, SERUM, OPEN SPINA BIFIDA (06/30/2025 10:45 AM EDT)ComponentValueRef Range Test MethodAnalysis TimePerformed AtPathologist SignatureRESULTSReport.TBHTEST RESULTS:*Screen Negative*.TBHGEST. AGE ON COLLECTION DATE17.4. weeksTBHGESTAT. AGE BASED ONLMP.TBHComment: Recalculations are not recommended when gestational dating by LMP and ultrasound are within 10 days. MATERNAL AGE AT EDD37.5. yrTBHRACECaucasian.VDAVBMEOR746. lbsTBHINSULIN DEP DIABETESNo.TBHMULTIPLE GESTATIONNo.TBHAFP VALUE29.7. ng/mLTBHAFP MOM1.02.TBHOSBR RISK 1 [id number].TBHINTERPRETATIONComment.TBHComment: Interpretation: Screen Negative This result is screen negative for OSB. The AFP MoM calculated is based on the gestational age provided. MS-AFP can identify up to 80% of open neural tube defects. Closed neural tube defects and some open defects may not be detected by this test. This test does not screen for Down Syndrome or Trisomy 18. If screening for Down Syndrome or Trisomy 18 is desired, contact [facility] to discuss available options. ??The [employer] recommends amniocentesis be offered to women age 35 and older. COMMENT:Comment.TBHComment: Zaira Michelle, Ph.D., [facility] Director References: Available Upon Request. Multiples Of Median Cutoffs ?For AFP Elevations Laws ?? 2.5 ? Black ?2.8 IDD ? 2.0 ? Twins ?4.5 ?Abbreviation Definitions IDD - Insulin Dep Diabetes OSBR - Open Spina Bifida Risk For further inquiries contact [facility] at [phone]. This test was developed and its performance characteristics determined by [employer]. It has not been cleared or approved by the Food and Drug Administration. Performed at: ??[facility] [address] [place], [place] ??[id number] Manager Loss Prevention: Nichole Agudelo [facility], Phone: ??[phone] Specimen (Source)Anatomical Location / LateralityCollection Method / Volume Collection TimeReceived Time09/ 10:45 AM EDT06/30/2025 10:47 AM EDT Narrative K[facility]Y - 07/02/2025 12:08 AM EDT N N LMP [id number] 2 16 N 1 250 N N N N N White/ Authorizing ProviderResult TypeResult StatusGeneric External Data ProviderLAB BLOOD ORDERABLESFinal ResultPerforming OrganizationAddressCity/State/ZIP Code Phone Number [facility] * (ABNORMAL) RECURRENT VAGINITIS (HTRX) (06/22/2025 4:47 PM EDT)ComponentValue Ref RangeTest MethodAnalysis TimePerformed AtPathologist SignatureATOPOBIUM BYHEVEW60.17(A)19.961 - 24.689 ppm06/24/2025 6:46 AM EDTHealthTrackRx at LabPortATOPOBIUM VAGINAEDetected(A)19.961 - 24.689 ppm06/24/2025 6:46 AM EDT [facility] at LabPortBVAB 2,3 (BACTERIAL VAGINOSIS ASSOCIATED BACTERIA 2, 3); MOBILUNCUS HAM079.961 - 24.689 ppm06/24/2025 6:46 AM EDTHealthTrackRx at LabPortBVAB 2,3 (BACTERIAL VAGINOSIS ASSOCIATED BACTERIA 2, 3); MOBILUNCUS SPP Not Vippmaju63.961 - 24.689 ppm06/24/2025 6:46 AM EDTHealthTrackRx at LabPort SALIMA ALBICANS, PARAPSILOSIS, XKLJAAUHEP19.806(A)23.000 - 30.347 ppm 06/24/2025 6:46 AM EDTHealthTrackRx at LabPortCANDIDA ALBICANS, PARAPSILOSIS, TROPICALISDetected(A)23.000 - 30.347 ppm06/24/2025 6:46 AM EDTHealthTrackRx at LabPortCANDIDA KOJEJFJA580.000 - 31.618 ppm06/24/2025 6:46 AM EDTHealthTrackRx at LabPortCANDIDA GLABRATANot Ffwbmtmt42.000 - 31.618 ppm06/24/2025 6:46 AM EDTHealthTrackRx at LabPortCANDIDA GUTTNI731.000 - 30.873 ppm06/24/2025 6:46 AM EDTHealthTrackRx at LabPortCANDIDA KRUSEINot Ydjrtmhs90.000 - 30.873 ppm 06/24/2025 6:46 AM EDTHealthTrackRx at LabPortCHLAMYDIA BRPIXZHTQOZ784.000 - 31.586 ppm06/24/2025 6:46 AM EDTHealthTrackRx at LabPortCHLAMYDIA TRACHOMATIS Not Yirqytah10.000 - 31.586 ppm06/24/2025 6:46 AM EDTHealthTrackRx at LabPort GARDNERELLA UXVGIJDBZ10.422(A)19.961 - 24.689 ppm06/24/2025 6:46 AM EDT [facility] at LabPortGARDNERELLA VAGINALISDetected(A)19.961 - 24.689 ppm 06/24/2025 6:46 AM EDTHealthTrackRx at LabPortMEGASPHAERA (TYPES 1, 2)019.961 - 24.689 ppm06/24/2025 6:46 AM EDTHealthTrackRx at LabPortMEGASPHAERA (TYPES 1, 2)Not Xvrzbfzg32.961 - 24.689 ppm06/24/2025 6:46 AM EDTHealthTrackRx at LabPortNEISSERIA XODCFKTDNYH135.000 - 32.587 ppm06/24/2025 6:46 AM EDT [facility] at LabPortNEISSERIA GONORRHOEAENot Ppespgwg90.000 - 32.587 ppm 06/24/2025 6:46 AM EDTHealthTrackRx at LabPortTRICHOMONAS TRBSVUBFB979.000 - 31.995 ppm06/24/2025 6:46 AM EDTHealthTrackRx at LabPortTRICHOMONAS VAGINALIS Not Ufsbqnwh61.000 - 31.995 ppm06/24/2025 6:46 AM EDTHealthTrackRx at LabPort MYCOPLASMA MNZKRKGXMA460.961 - 24.689 ppm06/24/2025 6:46 AM EDTHealthTrackRx at LabPortMYCOPLASMA GENITALIUMNot Nzlfzows86.961 - 24.689 ppm06/24/2025 6:46 AM EDTHealthTrackRx at [facility] HealthSpecimen (Source)Anatomical Location / LateralityCollection Method / VolumeCollection TimeReceived TimeTissue 06/22/2025 4:47 PM EDT06/24/2025 1:56 AM EDT Narrative Authorizing ProviderResult TypeResult StatusAmy Hira PALAB BLOOD ORDERABLES Final ResultPerforming OrganizationAddressCity/State/ZIP CodePhone Number [facility] [address] [address] * (ABNORMAL) POCT urinalysis dipstick manually resulted (06/22/2025 4:08 PM EDT) Only the most recent of3 resultswithin the time period is included. ComponentValueRef RangeTest MethodAnalysis TimePerformed AtPathologist Signature Color, UAYellowClarity, UACloudyGlucose, UANegativeNegative - 2000(110) ++++ mg/dLBilirubin, UANegativeNegative - 4(70) +++ mg/dLKetones, UAPositiveNegative - 160(16) ++++ mg/dLComment:1+Spec Grav, UA1.0301 - 1.03Blood, UAPositive Negative - 50 Malvin/mcLComment:1+pH, UA5.55 - 9Protein, UA1+Negative - 2000(20) ++++ mg/dLUrobilinogen, UA0.20.2 - 12 mg/dLLeukocytes, UA2+Negative - 500+++ Dionte/mcLNitrite, UANegativeNegative - PositiveSpecimen (Source)Anatomical Location / LateralityCollection Method / VolumeCollection TimeReceived TimeUrine 06/22/2025 4:08 PM EDT Narrative Authorizing ProviderResult TypeResult StatusAmy Hira PAPOINT OF CARE TEST ENTER/EDIT ORDERABLESFinal Result * IGP,APTIMA HPV,AGE GDLN (06/22/2025 3:50 PM EDT)ComponentValueRef RangeTest MethodAnalysis TimePerformed AtPathologist SignatureAGE GDLN ACOG TESTINGNote. TBHComment: ?? TESTS ? RESULT ??FLAG ??UNITS ?REF RANGE ??LAB ?? Clinician Provided Cytology Information ?? Source.............Cervix ?? Other.............. ?? No. of containers..01 ThinPrep Vial Age Algo ACOG Nicol... ??30-65 ? 01 ?FLAG LEGEND: ?L-Low Normal,H-High Normal,LL-Alert Low,HH-Alert High <-Panic Low,>-Panic High,A-Abnormal,AA-Critical Abnormal Performed at: 01 =G ?[facility] ?? [address] [place] ??[phone] ?? Tonya Rockwell MD, IGP, APTIMA HPV, RFX 16/18,45Note.TBHComment: ?? TESTS ? RESULT ??FLAG ??UNITS ?REF RANGE ??LAB DIAGNOSIS: ?02 ?? NEGATIVE FOR INTRAEPITHELIAL LESION OR MALIGNANCY. ?? FUNGAL ORGANISMS MORPHOLOGICALLY CONSISTENT WITH SALIMA SPECIES ARE ?? PRESENT. Specimen adequacy: ?02 ?? Satisfactory for evaluation. ??No endocervical component is identified. ?? An endocervical component is not commonly seen in the patient. Performed by: ? 02 ?? Shelley Gardiner Manager Mortgage . ? 02 Note: ? Note ?02 ?? The Pap smear is a screening test designed to aid in the ?? detection of premalignant and malignant conditions of the ?? uterine cervix. ??It is not a diagnostic procedure and ?? should not be used as the sole means of detecting cervical ?? cancer. ??Both false-positive and false-negative reports do ?? occur. Test Methodology: ? Note ?02 ?? This liquid based ThinPrep(R) pap test was screened with ?? the use of an image guided system. HPV Genotype Reflex ?? Note ?02 ?? Criteria not met, HPV Genotype not performed. ?FLAG LEGEND: ?L-Low Normal,H-High Normal,LL-Alert Low,HH-Alert High <-Panic Low,>-Panic High,A-Abnormal,AA-Critical Abnormal Performed at: 02 WB ?[facility] ?? [address] [place], [place] ??[phone] ?? Tonya Rockwell MD, HPV APTIMANegativeNegativeTBHComment: This nucleic acid amplification test detects fourteen high- risk HPV types (16,18,31,33,35,39,45,51,52,56,58,59,66,68) without differentiation. Performed at: ??=G - [address] ??[id number] Manager Loss Prevention: Tonya Rockwell MD, Phone: ??[phone] Performed at: ??WB - Lab[address] ??[id number] Manager Loss Prevention: Tonya Rockwell MD, Phone: ??[phone] Specimen (Source)Anatomical Location / LateralityCollection Method / Volume Collection TimeReceived Time06/22/2025 3:50 PM EDT06/23/2025 6:54 AM EDT Narrative [facility] - 06/26/2025 4:09 PM EDT SPATULA-ALONE CERVIX Authorizing ProviderResult TypeResult StatusCorey Sujatha DOLAB BLOOD ORDERABLES Final ResultPerforming OrganizationAddressCity/State/[facility] CodePhone Number [facility] * Pap Smear (06/22/2025 12:00 AM EDT)Specimen (Source)Anatomical Location / LateralityCollection Method / VolumeCollection TimeReceived TimeSwabCervical swab / Unknown Narrative Authorizing ProviderResult TypeResult StatusCorey Sujatha DOLAB CYTOLOGY ORDERABLESFinal ResultPerforming OrganizationAddressCity/State/ZIP CodePhone Number EXTERNAL LAB * URINE CULTURE, ROUTINE (05/08/2025 12:49 PM EDT)ComponentValueRef RangeTest MethodAnalysis TimePerformed AtPathologist SignatureURINE CULTURE, ROUTINE ??Urine Culture, Routine TBHURINE CULTURE, ROUTINEMixed urogenital floraTBHURINE CULTURE, WFMEXTZ15,000- 100,000 colony forming units per mLTBHURINE CULTURE, ROUTINEPerformed at: [facility] LabCore[facility] Joseph HospitalTBHURINE CULTURE, [id number] [place], [place] [id number] URINE CULTURE, ROUTINELab Director: Harshil Ho PhD, Phone: [phone] Specimen (Source)Anatomical Location / LateralityCollection Method / Volume Collection TimeReceived Time05/08/2025 12:49 PM EDT05/08/2025 12:50 PM EDT Narrative [facility] - 05/09/2025 8:08 PM EDT Authorizing ProviderResult TypeResult StatusGeneric External Data ProviderLAB BLOOD ORDERABLESFinal ResultPerforming OrganizationAddressCity/State/ZIP Code Phone Number [facility] * [facility] DRUG SCREEN RAPID (URINE) (05/08/2025 12:49 PM EDT)ComponentValueRef Range Test MethodAnalysis TimePerformed AtPathologist SignatureCANNABINOID SCREEN URINENEGATIVENEGATIVETBHPHENCYCLIDINE SCREEN URINENEGATIVENEGATIVETBHCOCAINE SCREEN URINENEGATIVENEGATIVETBHMETHAMPHETAMINES SCREEN URINENEGATIVENEGATIVE TBHOPIATE SCREEN URINENEGATIVENEGATIVETBHAMPHETAMINE SCREEN URINENEGATIVE NEGATIVETBHBENZODIAZEPINES SCREEN URINENEGATIVENEGATIVETBHTRICYCLIC ANTIDEPRESSANT URINENEGATIVENEGATIVETBHMETHADONE SCREEN URINENEGATIVENEGATIVE TBHBARBITURATES SCREEN URINENEGATIVENEGATIVETBHOXYCODONE SCREEN URINENEGATIVE NEGATIVETBHBUPRENORPHINE SCREEN URINENEGATIVENEGATIVETBHComment: DRUG CLASS TEST SYSTEM CUT-OFF CONCENTRATIONS ARE FOLLOWS: AMP (Amphetamine): 500 ng/mL BAR (Barbiturates): 200 ng/mL BZO (Benzodiazepines): 150 ng/mL BUP (Buprenorphine): 10 ng/mL KOBE (Cocaine): 150 ng/mL mAMP (Methamphetamine): 500 ng/mL MTD (Methadone): 200 ng/mL OPI (Opiates): 100 ng/mL OXY (Oxycodone): 100 ng/mL PCP (Phencyclidine): 25 ng/mL THC (Cannabinoids): 50 ng/mL TCA (Trycyclic Antidepressants): 300 ng/mL Specimen (Source)Anatomical Location / LateralityCollection Method / Volume Collection TimeReceived Time05/08/2025 12:49 PM EDT05/08/2025 12:50 PM EDT Narrative [facility] - 05/08/2025 2:40 PM EDT Authorizing ProviderResult TypeResult StatusGeneric External Data Provider CLINISYNCFinal ResultPerforming OrganizationAddressty/State/ZIP CodePhone Number [facility] * HBSAG SCREEN (05/08/2025 12:09 PM EDT)ComponentValueRef RangeTest Method Analysis TimePerformed AtPathologist SignatureHBSAG SCREENNegativeNegativeTBH Comment: Performed at: ??CB - [facility] [address] ??[id number] Manager Loss Prevention: Harshil Ho PhD, Phone: ??[phone] Specimen (Source)Anatomical Location / LateralityCollection Method / Volume Collection TimeReceived Time05/08/2025 12:09 PM EDT05/08/2025 12:15 PM EDT Narrative [facility] - 05/09/2025 1:10 PM EDT Authorizing ProviderResult TypeResult StatusGeneric External Data ProviderLAB BLOOD ORDERABLESFinal ResultPerforming OrganizationAddressty/State/ZIP Code Phone Number [facility] * RAPID PLASMA REAGIN, QUANT (05/08/2025 12:09 PM EDT)ComponentValueRef Range Test MethodAnalysis TimePerformed AtPathologist SignatureRAPID PLASMA REAGIN, QUANTNon ReactiveNonRea<1:1 titerTBHComment: Please Note: This test does not meet current guidelines for screening and diagnosis of syphilis. This test is intended for following treatment response in patients being treated for syphilis infection. To screen for syphilis infection, a reflex cascade that includes both RPR and a treponema-specific assay should be utilized, such as Treponema pallidum (Syphilis) Screening [place] (514550) or Rapid Plasma Reagin (RPR) Test With Reflex to Quantitative RPR and Confirmatory Treponema pallidum Antibodies (670882). Performed at: ??[address] ??[id number] Manager Loss Prevention: Harshil Ho PhD, Phone: ??[phone] Specimen (Source)Anatomical Location / LateralityCollection Method / Volume Collection TimeReceived Time05/08/2025 12:09 PM EDT05/08/2025 12:15 PM EDT Narrative [facility] - 05/09/2025 1:10 PM EDT Authorizing ProviderResult TypeResult StatusGeneric External Data ProviderLAB BLOOD ORDERABLESFinal ResultPerforming OrganizationAddressCity/State/ZIP Code Phone Number [facility] * HIV AB/P24 AG WITH REFLEX (05/08/2025 12:09 PM EDT)ComponentValueRef RangeTest MethodAnalysis TimePerformed AtPathologist SignatureHIV AB/P24 AG SCREENNon ReactiveNon ReactiveTBHComment: HIV-1/HIV-2 antibodies and HIV-1 p24 antigen were NOT detected. There is no laboratory evidence of HIV infection. HIV Negative Performed at: ??[address] ??[id number] Manager Loss Prevention: Harshil Ho PhD, Phone: ??[phone] Specimen (Source)Anatomical Location / LateralityCollection Method / Volume Collection TimeReceived Time05/08/2025 12:09 PM EDT05/08/2025 12:15 PM EDT Narrative CLINISYMA - 05/09/2025 4:07 AM EDT Authorizing ProviderResult TypeResult StatusGeneric External Data ProviderLAB BLOOD ORDERABLESFinal ResultPerforming OrganizationAddressCity/State/ZIP Code Phone Number [facility] * HCV ANTIBODY RFX TO QUANT PCR (05/08/2025 12:09 PM EDT)ComponentValueRef Range Test MethodAnalysis TimePerformed AtPathologist SignatureHCV ABNon ReactiveNon ReactiveTBHINTERPRETATION:Comment.TBHComment: Not infected with HCV unless early or acute infection is suspected (which may be delayed in an immunocompromised individual), or other evidence exists to indicate HCV infection. Performed at: ?? - [facility] [address] ??[id number] Manager Loss Prevention: Harshil Ho PhD, Phone: ??[phone] Specimen (Source)Anatomical Location / LateralityCollection Method / Volume Collection TimeReceived Time05/08/2025 12:09 PM EDT05/08/2025 12:15 PM EDT Narrative CLINISYMA - 05/09/2025 6:07 AM EDT Authorizing ProviderResult TypeResult StatusCorey Sujatha PATINO BLOOD ORDERABLES Final ResultPerforming OrganizationAddressCity/State/ZIP CodePhone Number [facility] * MLR HEMOGLOBIN A1C (05/08/2025 12:09 PM EDT)ComponentValueRef RangeTest Method Analysis TimePerformed AtPathologist SignatureGLYCOHEMOGLOBIN A1C5.24.5 - 6.2 %TBHComment: ADA RECOMMENDED LIMIT 4.0 - 6.0 ADA THERAPEUTIC TARGET < 7.0 ACTION SUGGESTED > 7.0 ESTIMATED AVERAGE ILYAXGF551ro/dLTBHSpecimen (Source)Anatomical Location / LateralityCollection Method / VolumeCollection TimeReceived Time05/08/2025 12:09 PM EDT05/08/2025 12:15 PM EDT Narrative CLINISYNC - 05/08/2025 12:47 PM EDT Authorizing ProviderResult TypeResult StatusCorestanley Solares DOCLINISYNCFinal Result Performing OrganizationAddressCity/State/ZIP CodePhone Number [facility] * ALL TYPE AND SCREEN (05/08/2025 12:09 PM EDT)ComponentValueRef RangeTest MethodAnalysis TimePerformed AtPathologist SignatureBLOOD TYPEA PositiveTBH ANTIBODY SCREENNEGATIVETBHSpecimen (Source)Anatomical Location / Laterality Collection Method / VolumeCollection TimeReceived Time05/08/2025 12:09 PM EDT 05/08/2025 12:15 PM EDT Narrative CLINISYNC - 05/08/2025 2:54 PM EDT [facility] , ?? Authorizing ProviderResult TypeResult StatusCorey Sujatha DOCLINISYNCFinal Result Performing OrganizationAddressCity/State/ZIP CodePhone Number [facility] * ALL RUBELLA IGG AB (05/08/2025 12:09 PM EDT)ComponentValueRef RangeTest Method Analysis TimePerformed AtPathologist SignatureRUBELLA ANTIBODIES, IGG1.73 Immune >0.99 indexTBHComment: Non-immune <0.90 ?Equivocal ??0.90 - 0.99 Immune >0.99 Performed at: ?? - [facility] [address] ??[id number] Manager Loss Prevention: Harshil Ho PhD, Phone: ??[phone] Specimen (Source)Anatomical Location / LateralityCollection Method / Volume Collection TimeReceived Time05/08/2025 12:09 PM EDT05/08/2025 12:15 PM EDT Narrative [facility] - 05/09/2025 6:07 AM EDT Authorizing ProviderResult TypeResult StatusCorey Sujatha DOCLINISYNCFinal Result Performing OrganizationAddressCity/State/ZIP CodePhone Number [facility] * (ABNORMAL) ALL CBC WITH AUTO DIFF (05/08/2025 12:02 PM EDT)ComponentValueRef RangeTest MethodAnalysis TimePerformed AtPathologist SignatureTBH WBC11.2(H) 4.0 - 11.0 10 3/uLTBHTBH RBC4.624.20 - 5.40 10 6/uLTBHTBH HGB12.812.0 - 16.0 g/dLTBHTBH HCT39.036.0 - 48.0 %TBHTBH MCV84.481.0 - 99.0 fLTBHTBH MCH27.726.7 - 34.0 pgTBHTBH MCHC32.829.9 - 35.2 g/dLTBHTBH RDW13.411.0 - 15.0 %TBHTBH PLT 255776 - 450 10 3/uLTBHTBH MPV9.69.5 - 13.5 fLTBHNEUTROPHILS PERCENT AUTO80.7 (H)43.0 - 75.0 %TBHLYMPHOCYTES PERCENT AUTO10.9(L)20.5 - 60.0 %TBHMONOCYTES PERCENT AUTO6.31.7 - 12.0 %TBHTBH EO %1.40.9 - 7.0 %TBHBASOPHILS PERCENT AUTO 0.40.2 - 2.0 %TBHIMMATURE GRANULOCYTES PCT AUTO0.30.0 - 0.5 %TBHNEUTROPHILS ABSOLUTE AUTO9.1(H)1.4 - 6.5 10 3/uLTBHLYMPHOCYTES ABSOLUTE AUTO1.21.2 - 3.8 10 3/uLTBHMONOCYTES ABSOLUTE AUTO0.70.3 - 0.8 10 3/uLTBHTBH EO #0.20.0 - 0.7 10 3/uLTBHBASOPHILS ABSOLUTE AUTO0.00.0 - 0.1 10 3/uLTBHIMMATURE GRANULOCYTES ABS AUTO0.030.00 - 0.03 10 3/uLTBHSpecimen (Source)Anatomical Location / LateralityCollection Method / VolumeCollection TimeReceived Time05/08/2025 12:02 PM EDT05/08/2025 12:15 PM EDT Narrative CLINISYNC - 05/08/2025 12:21 PM EDT Authorizing ProviderResult TypeResult StatusGeneric External Data Provider CLINISYNCFinal ResultPerforming OrganizationAddressCity/State/ZIP CodePhone Number [facility] * (ABNORMAL) POCT , urine manually resulted (04/30/2025 1:47 PM EDT) ComponentValueRef RangeTest MethodAnalysis TimePerformed AtPathologist SignaturePreg Test, UrPositiveNegativeSpecimen (Source)Anatomical Location / LateralityCollection Method / VolumeCollection TimeReceived TimeUrine 04/30/2025 1:47 PM EDT Narrative Authorizing ProviderResult TypeResult StatusCorey Sujatha DOPOINT OF CARE TEST ENTER/EDIT ORDERABLESFinal Result * US OB transvaginal (04/30/2025 1:39 PM EDT)Anatomical RegionLateralityModality BodyUltrasoundSpecimen (Source)Anatomical Location / LateralityCollection Method / VolumeCollection TimeReceived Time05/01/2025 8:27 AM EDT Narrative 05/01/2025 8:27 AM EDT EXAM: US OB TRANSVAGINAL HISTORY: ??Dating. COMPARISON: ?? None available. TECHNIQUE: Two-dimensional transvaginal grayscale ultrasound imaging of the pelvis was performed. Color Doppler evaluation of the ovaries was also performed. FINDINGS: The uterus demonstrates a normal homogeneous echotexture. ??The cervix measures 4.2 cm in length and [...] 8 weeks 0 days (+/- 5 days). ??JOSE JUAN by today's ultrasound is 12/10/2025. 2. Normal color Doppler evaluation of the right ovary, the left ovary was not visualized. Interpreted by: Electronically signed by CANDIDA GODWIN II, ?? , PHD at 01-May-2025 08:25:50 AM [facility] Procedure Note Candida Godwin MD - [...] signed by CANDIDA GODWIN II, MD, PHD [id number] 08:25:50 AM [facility] Authorizing ProviderResult TypeResult StatusCorey Sujatha ARAGON OB US PROCEDURES Final Result from Last [address] [place] [address] Care Teams Team MemberRelationshipSpecialtyStart DateEnd Date Jyoti Boone PA [address] [address] PCP - GeneralFamily Medicine03/12/24
--- NOTE | 2025-07-22 11:20 | US_ITS ---
The [address] [address] Patient Name: BRAEDEN CHAMBERLAIN MRN: [facility]:[id number] date: 1990 Sex: F Assigned Patient Location: Current Patient Location: Accession/Order Number: [id number] Exam Date: 07/22/2025 11:30 Report Date: 07/23/2025 08:09 At the request of: LUZMARIA MUNOZ DO Procedure: US OB cervical length CLINICAL DATA: Anatomy survey COMPARISON: None ULTRASOUND OB ANATOMY There is a single live intrauterine gestation in breech presentation. Amniotic fluid volume is subjectively normal. The placenta is posterior. cardiac and somatic activity are noted with heart rate of 139 bpm. The neural axis and all 4 extremities were surveyed by the manipulator operator. The spine is suboptimally seen. The stomach, bladder, kidneys, three-vessel cord with insertion, 4 chamber heart with right and left ventricular outflow tracts, diaphragm, facial features and male gender are seen. The following measurements were obtained: Biparietal diameter 4.9 cm 20 weeks 5 days 54% Head circumference 17.9 cm 20 weeks 2 days 30% Abdominal circumference 16.9 cm 22 weeks 0 days 84% Femur length 3.2 cm 20 weeks 0 days 23% The composite ultrasound age based these measurements is 20 weeks 5 days +/- 1 week 3 days. The estimated date of delivery is 12/04/2025. Estimated weight is 14 ounces +/- 2 ounces (60%) US/US OB anatomy IMPRESSION: SINGLE LIVE INTRAUTERINE GESTATION WITH ULTRASOUND AGE OF 20 WEEKS 5 DAYS. SUBOPTIMAL EVALUATION OF THE SPINE. ULTRASOUND OB CERVICAL LENGTH The cervix was evaluated with a transvaginal probe. The cervix is closed with estimated length of approximately 5.7 cm. There is no evidence of previa. IMPRESSION: UNREMARKABLE, CLOSED CERVIX. Impression dictated by: Jyoti Franks M.D. 07/23/2025 8:09 AM Dictation Location: [place] [address] Electronically authenticated by: [id number] Y Date: 07/23/2025 08:09
--- NOTE | 2025-07-22 11:20 | US_ITS ---
The [address] [address] Patient Name: BRAEDEN CHAMBERLAIN MRN: [facility]:[id number] date: 1990 Sex: F Assigned Patient Location: Current Patient Location: Accession/Order Number: [id number] Exam Date: 07/22/2025 11:30 Report Date: 07/23/2025 08:09 At the request of: LUZMARIA MUNOZ DO Procedure: US OB cervical length CLINICAL DATA: Anatomy survey COMPARISON: None ULTRASOUND OB ANATOMY There is a single live intrauterine gestation in breech presentation. Amniotic fluid volume is subjectively normal. The placenta is posterior. cardiac and somatic activity are noted with heart rate of 139 bpm. The neural axis and all 4 extremities were surveyed by the asbestos abatement worker. The spine is suboptimally seen. The stomach, bladder, kidneys, three-vessel cord with insertion, 4 chamber heart with right and left ventricular outflow tracts, diaphragm, facial features and male gender are seen. The following measurements were obtained: Biparietal diameter 4.9 cm 20 weeks 5 days 54% Head circumference 17.9 cm 20 weeks 2 days 30% Abdominal circumference 16.9 cm 22 weeks 0 days 84% Femur length 3.2 cm 20 weeks 0 days 23% The composite ultrasound age based these measurements is 20 weeks 5 days +/- 1 week 3 days. The estimated date of delivery is 12/04/2025. Estimated weight is 14 ounces +/- 2 ounces (60%) US/US OB cervical length IMPRESSION: SINGLE LIVE INTRAUTERINE GESTATION WITH ULTRASOUND AGE OF 20 WEEKS 5 DAYS. SUBOPTIMAL EVALUATION OF THE SPINE. ULTRASOUND OB CERVICAL LENGTH The cervix was evaluated with a transvaginal probe. The cervix is closed with estimated length of approximately 5.7 cm. There is no evidence of previa. IMPRESSION: UNREMARKABLE, CLOSED CERVIX. Impression dictated by: Jyoti Franks M.D. 07/23/2025 8:09 AM Dictation Location: [place] [address] Electronically authenticated by: [id number] Y Date: 07/23/2025 08:09
--- OUTSIDE RECORDS SUMMARY | 2025-07-22 11:22 | XMS_ITS | CCD ---
Author Organization [facility] Care Team Providers Care Pool Cleaner Name Role Phone RICKI RODRIGUEZ Admitting Unavailable RICKI RODRIGUEZ Attending Unavailable REQUEST, NONE LISTED Primary Care Unavailable RICKI RODRIGUEZ Consulting Unavailable PRAVIN PALOMINO Consulting Unavailable RICKI RDORIGUEZ Admitting Unavailable RICKI RODRIGUEZ Attending Unavailable RICKI RODRIGUEZ Consulting Unavailable Shireen Fournier Unavailable Unavailable Primary Care Provider UnavailJyoti Pugh Primary Care Provider JYOTI LEGGETT Attending Unavailable JYOTI LEGGETT Attending Unavailable LUZMARIA SOLARES Attending Unavailable SUZI CINTRON Attending Unavailable Medications Current Medications MedicationDrug Class(es)DatesSig (Normalized)Sig (Original)cyclobenzaprine hydrochloride 10 mg oral tablet (1 source)Muscle RelaxantStart: 67-99-4048cpdb 1 tablet by mouth every twenty- four hoursCyclobenzaprine HCl 10 MG 1 tablet at bedtime as needed Orally Once a day for 7 day(s) Mar,ctiveetonogestrel 68 mg drug implant (2 sources)Progestinetonogestrel-eluting (Nexplanon) 68 mg contraceptive implant as directed Subcutaneous 0 Activelidocaine 0.05 mg/mg medicated patch (1 source)Antiarrhythmic, Amide Local AnestheticStart: 88-20-0119Rdorexsl 5 % 1 patch remove after 12 hours Externally Once a day for 7 days Mar, Active methylPREDNISolone 4 mg oral tablet (1 source)CorticosteroidStart: 13-89-6472vkrdnfXRZGIUIqnazf 4 MG as directed Orally for daily dose take half with breakfast, half with dinner for 6 days Mar, Activemometasone furoate 1 mg/ml topical lotion (2 sources)CorticosteroidStart: 99-84-0370dwhtadplbn (Elocon) 0.1 % lotion Indications: Dry skin dermatitis Apply topically Daily 30 mL 2 11/13/2023 Active phentermine hydrochloride 37.5 mg oral tablet (1 source)Sympathomimetic Amine AnorecticStart: 97-18-6422Cvtuhamsghj Active MG PO April 01, 2024 12:00ampredniSONE 20 mg oral tablet (1 source)Start: 89-46-4205bjhm 3 tablets by mouth once daily, then take 2 tablets by mouth once daily, then take 1 tablet by mouth once dailyPrednisone Active 20 MG PO .COMPLEX April 01, 2024 12:00am Take 3 tabs po daily x 3 days, then take 2 tabs po daily x 3 days, then take 1 tab po daily x 3 days. MV-Min-Fe Fum-FA-DHA ( 1 PO) (14 sources) MV-Min-Fe Fum-FA-DHA ( 1 PO) Take by mouth Active Completed/Discontinued Medications MedicationDrug Class(es)DatesSig (Normalized)Sig (Original)cephalexin 500 mg oral capsule (6 sources)Cephalosporin AntibacterialStart: 06-16-2024 End: 03-31-5547qdrd 1 capsule by mouth in the morningcephalexin (Keflex) 500 MG capsule Take 500 mg by mouth in the morning and 500 mg before bedtime. 11/12/2024 Discontinued (Other)Ketorolac (1 source)Nonsteroidal Anti-inflammatory Drug, Cyclooxygenase InhibitorStart: 17-51-0058Adtkbbm per 15 mg Mar, 30 mg24 hr metFORMIN hydrochloride 500 mg extended release oral tablet (6 sources)BiguanideStart: 06-18-2024 End: 39-71-8508juul 1 tablet by mouth every twenty-four hours at mealtime metFORMIN XR (Glucophage-XR) 500 MG 24 hr tablet Indications: PCOS (polycystic ovarian syndrome) , Abnormal uterine bleeding (AUB) Take 1 tablet (500 mg) by mouth in the evening. Take with meals Do not crush, chew, or split. 30 tablet 11 06/18/2024 11/12/2024 Discontinued (Other)triamcinolone acetonide 40 mg/ml injectable suspension (1 source)CorticosteroidStart: 54-87-6456Kxpypky-40 14 Mar, 2022 40 mg Problems Active Problems Problem ClassificationProblemDateDocumented DateEpisodic/ChronicAbdominal pain (2 sources)Lower abdominal pain; Translations: [Lower abdominal pain, unspecified]32-91-7197GsuyegfiPdsjr and electrolyte disorders (2 sources)Hypokalemia; Translations: [Hypokalemia]13-24-2044Wgxtgmwo Immunizations and screening for infectious disease (1 source)Encounter for screening for human papillomavirus (HPV); Translations: [ENC SCREENING HUMAN PAPILLOMAVIRUS]Onset: 09-64-5405SluupersOlgxkjpzs disorders (20 sources)Dysmenorrhea; Translations: [Dysmenorrhea, unspecified]Onset: 884430-09-8935YuybbbgLvtve complications of (2 sources)Multigravida of advanced maternal age; Translations: [Supervision of elderly multigravida, second trimester]36-33-0060WfztwgmoSjihq endocrine disorders (2 sources)Polycystic ovary syndrome; Translations: [Polycystic ovarian syndrome]38-91-4096OlzcgrhMvdtw female genital disorders (2 sources)Abnormal uterine bleeding; Translations: [Abnormal uterine and vaginal bleeding, unspecified]43-08-6044NmtcrihMocso non-traumatic joint disorders (2 sources)Bilateral wrist pain; Translations: [Pain in right wrist]11-12-2024 EpisodicOther nutritional; endocrine; and metabolic disorders (4 sources)Morbid obesity; Translations: [Morbid (severe) obesity due to excess calories]Onset: 486819-95-3145HappenvUexcz nutritional; endocrine; and metabolic disorders (2 sources)Hypomagnesemia; Translations: [Hypomagnesemia]11-14-1379QuhujioVuwcq nutritional; endocrine; and metabolic disorders (18 sources)Obesity caused by energy imbalance; Translations: [Class 2 obesity due to excess calories without serious comorbidity with body mass index (BMI) of 37.0 to 37.9 in adult]Onset: 007876-82-2302XeyrjcxHpzbh and delivery including normal (4 sources); Translations: [Encounter for supervision of normal , unspecified, unspecified trimester]07-43-5472UyeygluqRemmy screening for suspected conditions (not mental disorders or infectious disease) (2 sources)Endometrium thickened; Translations: [Abnormal findings on diagnostic imaging of other specified body structures]73-59-8218IdxkwfbQordb screening for suspected conditions (not mental disorders or infectious disease) (6 sources)Encounter for screening for malignant neoplasm of cervix; Translations: [Patient encounter status]Onset: 630420-76-9742Yddlibfb Residual codes; unclassified (2 sources)Gestation period, 12 weeks; Translations: [12 weeks gestation of ]45-21-2646CjooqwumHunbcwdq codes; unclassified (7 sources)Gestation period, 16 weeks; Translations: [16 weeks gestation of ]Onset: 761122-46-3645HqdldtcnXwdbujtnmop; intervertebral disc disorders; other back problems (3 sources)Muscle spasm of back; Translations: [Pain in the coccyx]Onset: 03-14-2022 Resolved: 08-02-7484TjubanltHdlfrpl and strains (2 sources)Strain of muscle and/or tendon of lower leg; Translations: [Strain of unspecified muscle and tendonat ankle and foot level, left foot, initial encounter]77-01-2890Dnnycqze Past or Other Problems Problem ClassificationProblemDateDocumented DateEpisodic/ChronicOther aftercare (4 sources)Other buttermaker helper (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; Translations: [OTH CHURCH BUSINESS ADMINISTRATOR CURRENT DRUG THERAPY]Onset: 63-66-7898FmtdgkeaUzvws bone disease and musculoskeletal deformities (20 sources)Osteopenia; Translations: [Other specified disorders of bone density and structure, left thigh]Onset: 162915-42-8034CpfqhamqOqsqa non- traumatic joint disorders (20 sources)Multiple joint pain; Translations: [Pain in unspecified joint]Onset: 309515-25-7104OnlcziocLbngv nutritional; endocrine; and metabolic disorders (20 sources)Obese class I; Translations: [Obesity, unspecified]Onset: 11-13-2023 Resolved: 379867-47-4677AulkbzwHaphz skin disorders (20 sources)Dry skin dermatitis; Translations: [Xerosis cutis]Onset: 11-13-2023 08-28-0736NtpmttpuQrbzedxz codes; unclassified (1 source)Other specified health status; Translations: [OTHER SPECIFIED HEALTH STATUS]Onset: 14-30-4218IayqbeebDxlje infection (20 sources)Human papilloma virus infection; Translations: [Papillomavirus as the cause of diseases classified elsewhere]Onset: 299516-50-6349Xjcssthz Results Test NameValueInterpretationReference RangeFacilityAFP, SERUM, OPEN SPINA BIFIDA on 67-42-7175JJS MOM1.02.[facility] HospitalAFP VALUE29.7 ng/mL.[facility] COMMENT:Comment.[facility] HospitalComment on above:Zaira Michelle, Ph.D., [facility] Director References: Available Upon Request. Multiples Of Median Cutoffs For AFP Elevations Laws 2.5 Black 2.8 IDD 2.0 Twins 4.5 Abbreviation Definitions IDD - Insulin Dep Diabetes OSBR - Open Spina Bifida Risk For further inquiries contact [facility] at [phone]. This test was developed and its performance characteristics determined by [facility]. It has not been cleared or approved by the Food and Drug Administration. Performed at: [facility] [place] [address] [place], [place] [id number] Front Desk Worker: Nichole Agudelo [facility], Phone: [phone] GEST. AGE ON COLLECTION DATE17.4. weeksG[facility] HealthcareGESTAT. AGE BASED ONLMP. [facility] HealthcareComment on above:Recalculations are not recommended when gestational dating by LMP and ultrasound are within 10 days. INSULIN DEP DIABETESNo.NOM HealthcareINTERPRETATIONComment.[facility] Comment on above:Interpretation: Screen Negative This result is screen negative [...] Genetic Customer Services to discuss available options. The [employer] recommends amniocentesis be offered to women age 35 and older. MATERNAL AGE AT EDD37.5. yrNONV HealthcareMULTIPLE GESTATIONNo.[facility] OSBR RISK 1 [id number].[facility] HealthcareRACECaucasian.NOM HealthcareRESULTSReport. [facility] HealthcareTEST RESULTS:Negative.[facility] NzcsnievpgKMQNJN175. lbsNOMS HealthcareN N LMP [id number] 2 16 N 1 250 N N N N N White/ CLINISYNCNOMS HealthcareIGP,APTIMA HPV,AGE GDLNon 24-38-1009MEB GDLN ACOG TESTINGNote.NOM HealthcareComment on above:TESTS RESULT FLAG UNITS REF RANGE LAB Clinician Provided Cytology Information Source.............Cervix Other.............. No. of containers..01 ThinPrep Vial Age Algo ACOG Nicol... 30-65 FLAG LEGEND: L-Low Normal,H-High Normal,LL-Alert Low,HH-Alert High <-Panic Low,>-Panic High,A-Abnormal,AA-Critical Abnormal Performed at: 01 =G [address] [place] [address] Tonya Rockwell MD, HPV APTIMANegativeNegativeGUNNISON VALLEY [facility]OSPITAL HealthcareComment on above:This nucleic acid amplification test detects fourteen high- risk HPV types (16,18,31,33,35,39,45,51,52,56,58,59,66,68) without differentiation. Performed at: =G Lab[address], [place] [id number] Front Desk Worker: Tonya Rockwell MD, Phone: [phone] Performed at: [address] [id number] Front Desk Worker: Tonya Rockwell MD, Phone: [phone] IGP, APTIMA HPV, RFX 16/18,45Note.NOMS HealthcareComment on above:TESTS RESULT FLAG UNITS REF RANGE LAB DIAGNOSIS: 02 NEGATIVE FOR INTRAEPITHELIAL LESION OR MALIGNANCY. FUNGAL ORGANISMS MORPHOLOGICALLY CONSISTENT WITH SALIMA SPECIES ARE PRESENT. Specimen adequacy: 02 Satisfactory for evaluation. No endocervical component is identified. An endocervical component is not commonly seen in the patient. Performed by: 02 Shelley Gardiner, Parts Room Assistant . 02 Note: Note 02 The Pap [...] High,A-Abnormal,AA-Critical Abnormal Performed at: 02 [facility] [address] [address] Tonya Rockwell MD, SPATULA-ALONE CERVIX CLINISYNCNOMS HealthcareRECURRENT VAGINITIS (HTRX)on 11-45-1561DLHFSJZPJ VAGINAE 22.17AbnormalNOMS HealthcareATOPOBIUM VAGINAEDetectedAbnormalNOMS HealthcareBVAB 2,3 (BACTERIAL VAGINOSIS ASSOCIATED BACTERIA 2, 3); MOBILUNCUS VDF7HMAB HealthcareBVAB 2,3 (BACTERIAL VAGINOSIS ASSOCIATED BACTERIA 2, 3); MOBILUNCUS SPPNot detectedNOMS HealthcareCANDIDA ALBICANS, PARAPSILOSIS, WCCMALFRWK58.806 AbnormalNOMS HealthcareCANDIDA ALBICANS, PARAPSILOSIS, TROPICALISDetected AbnormalNOMS HealthcareCANDIDA NHNFZRRB0ORXO HealthcareCANDIDA GLABRATANot detectedNOMS HealthcareCANDIDA GQPMNQ8ZSMU HealthcareCANDIDA KRUSEINot detected NOMS HealthcareCHLAMYDIA GGHNYQOBYKF8DDVO HealthcareCHLAMYDIA TRACHOMATISNot detectedNOMS HealthcareGARDNERELLA HLMNXSIHG02.422AbnormalN[facility]S Healthcare GARDNERELLA VAGINALISDetectedAbnormalNOMS HealthcareInterpretation and review of laboratory resultsAbnormalNOMS HealthcareMEGASPHAERA (TYPES 1, 2)0NOMS HealthcareMEGASPHAERA (TYPES 1, 2)Not detectedNOMS HealthcareMYCOPLASMA QBYVLZGOLH2PFPG HealthcareMYCOPLASMA GENITALIUMNot detectedNOMS Healthcare NEISSERIA LAFSZQPLJNZ3TIXJ HealthcareNEISSERIA GONORRHOEAENot detectedNOMS HealthcareTRICHOMONAS CWLDSKNTA5GQNP HealthcareTRICHOMONAS VAGINALISNot detected NOMS HealthcareNOMS HealthcareUrinalysis macro (dipstick) panel (U)on 06-22-2025 Bilirubin, UANegativeNegative - 4(70) +++ mg/dLNOMS HealthcareBlood, UAPositive Negative - 50 Malvin/mcLNOMS HealthcareComment on above:1+Clarity, UACloudyNOMS HealthcareColor, UAYellowNOMS HealthcareGlucose, UANegativeNegative - 2000(110) ++++ mg/dLNOMS HealthcareInterpretation and review of laboratory resultsAbnormal NOMS HealthcareKetones, UAPositiveNegative - 160(16) ++++ mg/dLNOMS Healthcare Comment on above:1+Leukocytes, UA2+Negative - 500+++ Dionte/mcLNOMS Healthcare Nitrite, UANegativeNegative - PositiveNOMS HealthcarepH, UA5.55 - 9NOMS HealthcareProtein, UA1+Negative - 2000(20) ++++ mg/dLNOMS HealthcareSpec Grav, UA1.031 - 1.03NOMS HealthcareUrobilinogen, UA0.20.2 - 12 mg/dLNOMS Healthcare NOMS HealthcareUrinalysis macro (dipstick) panel (U)on 68-05-7707Xfwmjewot, UA NegativeNegative - 4(70) +++ mg/dLNOMS HealthcareBlood, UAPositiveNegative - 50 Malvin/mcLNOMS HealthcareComment on above:2+Clarity, UAClearNOMS HealthcareColor, UAYellowNOMS HealthcareGlucose, UANegativeNegative - 2000(110) ++++ mg/dLNOMS HealthcareInterpretation and review of laboratory resultsAbnormalNONV Healthcare Ketones, UAPositiveNegative - 160(16) ++++ mg/dLNOMS HealthcareComment on above: TraceLeukocytes, UAPositiveNegative - 500+++ Dionte/mcLNOMS HealthcareComment on above:3+Nitrite, UANegativeNegative - PositiveNOMS HealthcarepH, UA65 - 9NOMS HealthcareProtein, UAPositiveNegative - 2000(20) ++++ mg/dLNOMS Healthcare Comment on above:traceSpec Grav, UA1.031 - 1.03NOMS HealthcareUrobilinogen, UA 0.20.2 - 12 mg/dLNOMS HealthcareNOMS HealthcareALL CBC WITH AUTO DIFFon 05-18-2045YEMTSBELC ABSOLUTE HGUD2ENJB HealthcareBasophils/100 WBC (Bld)0.4 %0.2 - 2.0 %NOMS HealthcareEosinophils/100 WBC (Bld)1.4 %0.9 - 7.0 %[facility] Erythrocyte distribution width (RBC) [Ratio]13.4 %11.0 - 15.0 %[facility] Hematocrit (Bld) [Volume fraction]39 %36.0 - 48.0 %NOMWashington University Medical CenterHemoglobin (Bld) [Mass/Vol]12.8 g/dL12.0 - 16.0 g/dLFulton State HospitalIMMATURE GRANULOCYTES ABS AUTO0.03NOFreeman Neosho Hospitalmature granulocytes/100 WBC (Bld)0.3 %0.0 - 0.5 % [facility] HospitalInterpretation and review of laboratory resultsAbnormalFulton State HospitalLYMPHOCYTES ABSOLUTE AUTO1.2NOMS [facility] Medical CenterLymphocytes/100 WBC (Bld) 10.9 %Low20.5 - 60.0 %[facility] HospitalH (RBC) [Entitic mass]27.7 pg26.7 - 34.0 pgSaint John's Aurora Community HospitalHC (RBC) [Mass/Vol]32.8 g/dL29.9 - 35.2 g/dLFulton State Hospital MCV (RBC) [Entitic vol]84.4 fL81.0 - 99.0 fLFulton State HospitalMONOCYTES ABSOLUTE AUTO0.7F[facility] State HospitalMonocytes/100 WBC (Bld)6.3 %1.7 - 12.0 %[facility] NEUTROPHILS ABSOLUTE AUTO9.1HighFulton State HospitalNeutrophils/100 WBC (Bld)80.7 % High43.0 - 75.0 %[facility] HospitalPlatelet mean volume (Bld) [Entitic vol]9.6 fL 9.5 - 13.5 fLFulton State HospitalTB EO #0.2NOMS [facility] HPB046FPKPHeartland Behavioral Health Services RBC4.62NOBoone Hospital Center WBC11.2HighFulton State HospitalCLINISYNCNSaint Alexius Hospital HCG ( test) Ql (U)on 39-69-3792Zzluiueyvwjzdy and review of laboratory resultsAbnoDanville State HospitalPreg Test, UrPositiveNegativeAtrium Health CabarrusUS OB TRANSVAGINALon 90-97-8624PI OB TRANSVAGINALEXAM: US OB TRANSVAGINAL HISTORY: Dating. COMPARISON: None [...] II, MD, PHD at 01-May-2025 08:25:50 AM [facility] TeleradiologyNormalNot AvailableComment on above:Order Comment: US OB TRANSVAGINAL No LMP recorded.Urinalysis macro (dipstick) panel (U)on 50-21-4365Kvbsisciv, UA NegativeNegative - 4(70) +++ mg/dLNOMS HealthcareBlood, UAPositiveNegative - 50 Malvin/mcLNOMS HealthcareComment on above:TraceClarity, UAClearNOMS Healthcare Color, UAYellowNOMS HealthcareGlucose, UANegativeNegative - 2000(110) ++++ mg/dL NOMS HealthcareInterpretation and review of laboratory resultsAbnormalNOMS HealthcareKetones, UAPositiveNegative - 160(16) ++++ mg/dLNOMS HealthcareComment on above:TraceLeukocytes, UAModerateNegative - 500+++ Dionte/mcLNOMS Healthcare Nitrite, UANegativeNegative - PositiveNOMS HealthcarepH, UA5.55 - 9NOMS HealthcareProtein, UATraceNegative - 2000(20) ++++ mg/dLNOMS HealthcareSpec Grav, UA1.031 - 1.03NOMS HealthcareUrobilinogen, UA0.20.2 - 12 mg/dLNOMS HealthcareNOMS HealthcareIGP,APTIMA HPV,AGE GDLNon 69-52-2724MTG GDLN ACOG TESTINGNote.NOMS HealthcareComment on above:TESTS RESULT FLAG UNITS REF RANGE LAB Clinician Provided Cytology Information Source.............Cervix;Endocervix No. of containers..01 ThinPrep Vial Age Keshavo [facility] Nicol... FLAG LEGEND: L-Low Normal,H-High Normal,LL-Alert Low,HH-Alert High <-Panic Low,>-Panic High,A-Abnormal,AA-Critical Abnormal Performed at: 01 =[address] [address] Tonya Rockwell MD, HPV APTIMANegativeNegativeNOMS HealthcareComment on above:This nucleic acid amplification test detects fourteen high- risk HPV types (16,18,31,33,35,39,45,51,52,56,58,59,66,68) without differentiation. Performed at: =[address] [id number] Front Desk Worker: Tonya Rockwell MD, Phone: [phone] Performed at: [address] [id number] Front Desk Worker: Tonya Rockwell MD, Phone: [phone] IGP, APTIMA HPV, RFX 16/18,45Note.[facility] HealthcareComment on above:TESTS RESULT FLAG UNITS REF RANGE LAB DIAGNOSIS: 02 NEGATIVE FOR INTRAEPITHELIAL LESION OR MALIGNANCY. Specimen adequacy: 02 Satisfactory for evaluation. Endocervical and/or squamous metaplastic cells (endocervical component) are present. Performed by: 02 Ventura Quiroz, Instructor Bridge (ASC) . 02 Note: Note 02 The Pap [...] High,A-Abnormal,AA-Critical Abnormal Performed at: 02 [facility] [address] [address] Tonya Rockwell MD, BRUSH-SPATULA CERVIX ENDOCERVIX CLINISYNCNOMS HealthcarePAP ACOG PANEL 2: 30 to 65on 24-69-9173Fdk Gdln ACOG Jnajkms21-17FdypylBctEast [place] Regional HospitalComment on above:Performed By: #### [id number] #### [facility] [address] [place] [address] Cindy KarenDIAGNOSIS:CommentNoUpper Valley Medical Center on above:Result Comment: NEGATIVE FOR INTRAEPITHELIAL LESION OR MALIGNANCY. Performed at: WBPerformed By: #### [id number] #### [facility] [address] [place] [address] Cindy KarenHPV AptimaNegativeNormalNegativeThe [facility] SouthwoodsComascension st[facility] on above:Result Comment: This test was developed and its performance characteristics determined by [facility]. It has not been cleared or approved by the Food and Drug Administration. This nucleic acid amplification test detects fourteen high-risk HPV types (16,18,31,33,35,39,45,51,52,56,58,59,66,68) without differentiation. Performed at: =GPerformed By: #### [id number] #### [facility] [address] [place] [address] KarenMethodology:CommentMemorial Health System Selby General Hospital on above: Result Comment: This liquid based SurePath(R) pap test was screened with the assistance of an image guided system. Performed at: WBPerformed By: #### [id number] #### [facility] [address] [place] [address] KarenNote:CommentMemorial Health System Selby General Hospital on above:Result Comment: The Pap smear is a screening test designed to aid in the detection of premalignant and malignant conditions of the uterine cervix. It is not a diagnostic procedure and should not be used as the sole means of detecting cervical cancer. Both false-positive and false-negative reports do occur. . Performed at: WBPerformed By: #### [id number] #### [facility] [address] [place] [address] KarenPerformed by:CommentNoUpper Valley Medical Center on above: Result Comment: Charis Mi, Instructor Bridge (ASCP) Performed at: WBPerformed By: #### [id number] #### [facility] [address] [place] [address] KarenSpecimen adequacy:CommentMemorial Health System Selby General Hospital on above:Result Comment: Satisfactory for evaluation. Endocervical and/or squamous metaplastic cells (endocervical component) are present. Performed at: WBPerformed By: #### [id number] #### [facility] [address] [place] [address] Cindy Montes..NormalSamaritan North Health CenterComment on above:Result Comment: Performed at: WBPerformed By: #### [id number] #### [facility] [address] [place], [place] [address] Cindyfrandy TerrazasenXR DEXA BONE DENSITYon 14-53-5896NP DEXA BONE DENSITYPatient: BRAEDEN MCCULLOUGH Exam Date: 09/22/2019 : 1990 Gender:F Ordering : DR RICKI RODRIGUEZ . Admission #: [id number] Family : Order #: [id number] CLICK HERE TO VIEW EXAM RADIOLOGY REPORT [...] by: Pravin Palomino M.D. on 09/22/2019 at 10:54[facility] Vital Signs Date TimeVital SignValuePerforming BjxiiummeOfvietde39-13-2507 15:47-0400Body mass index (BMI) [Ratio]39.16 kg/m2Suzi BROWNING Work Phone: NOCarondelet HealthLlzzighkvg39-87-9841 15:47-0400Body fzofgp323.4 kgSuzi Hira BROWNING Work Phone: [facility]OC[facility] HealthOdsuozioou14-84-3493 15:47-0400Diastolic blood jdtmamzc43 mm[Hg]Suzi Hira BROWNING Work Phone: [facility]OC[facility]let HealthDmudbnagyn53-71-4139 15:47-0400Systolic blood ytmfejyi682 mm[Hg]Suzi BROWNING Work Phone: [facility] HospitalJmivsdigws32-54-0682 16:07-0400Body mass index (BMI) [Ratio]38.65 kg/w5Euqgo Sujatha DO Work Phone: [facility] HospitalJbtcslbmtc11-92-0554 16:07-0400Body pkujfz945.92 kgCorey Sujatha DO Work Phone: [facility]OCarondelet HealthThvuxemnam39-13-7876 16:07-0400Diastolic blood cxiaalbr43 mm[Hg]Luzmaria Sujatha DO Work Phone: [facility] HospitalHydklketrb32-41-3486 16:07-0400Systolic blood bgihxjvq737 mm[Hg]Luzmaria Sujatha DO Work Phone: NOCarondelet HealthLubgnhamxr61-26-1152 10:33-0400Body lqfeph948.2 cmJyoti Leggett PA Work Phone: NOCarondelet HealthOfcsufenak19-65-7570 10:33-0400Body mass index (BMI) [Ratio]38.22 kg/u2JytrxJyoti Henningmer PA Work Phone: NOCarondelet HealthYuvcuojsnq17-71-6753 10:33-0400Body .68 kgJyoti Hemmer PA Work Phone: NOCarondelet HealthIlpdgtifjz42-54-3004 10:33-0400Diastolic blood qxxojtji56 mm[Hg]Jyoti Leggett PA Work Phone: [facility] HospitalQyzlrrsxew53-35-5343 10:33-0400Heart rate84 /min Jyoti Hemmer PA Work Phone: [facility] HospitalGnyzknmyfh51-42-2953 10:33-0400Respiratory rate16 /minKaren Hemmer PA Work Phone: [phone])[facility]-6541F[facility] State HospitalBbpnxvbcbq84-26-1592 10:33-7305YdN6% (BldA) [Mass fraction]98 %Jyoti Hemmer PA Work Phone: [phone])[facility]-[address] [place], [place] [address]Ywvblhesza83-78-2143 10:33-0400Systolic blood ibejdqth152 mm[Hg]Jyoti Hemmer PA Work Phone: [phone])[facility]-[address] [place], [place] [address]Rjtrgcnzpg28-70-3856 14:28-0400Body mass index (BMI) [Ratio]38.61 kg/x3MlqmnSt. [facility] [place]07-31-2025 14:28-0400Body weight 111.81 kgAngelica Ville [address]-31-2025 14:28-0400Diastolic blood wtoedxom01 mm[Hg][facility] [place]07-31-2025 14:28-0400Systolic blood bzgdmdox194 mm[Hg][facility] [place]02-12-2025 15:59-0500Body yovzww353.2 cmKaren Hemmer PA Work Phone: [phone] [place], [place] [address]Amoutxvyjr10-79-6770 15:59-0500Body mass index (BMI) [Ratio]37.24 kg/m0Ukhpo Hemmer PA Work Phone: [phone])[facility] [place], [place] [address]Rkfqkwanxv86-76-3715 15:59-0500Body ecwdup587.86 kgKaren Hemmer PA Work Phone: [phone] [place], [place] [address]Dvsbwrvzbo34-82-5086 15:59-0500Diastolic blood vlhjuuvl18 mm[Hg]Jyoti Hemmer PA Work Phone: [phone])[facility]-[address] [place], [place] 18201Gwyejqmxzn18-03-1939 15:59-0500Heart rate83 /min Jyoti Hemmer PA Work Phone: [facility] HospitalRgbqudcvwd74-63-8354 15:59-0500Respiratory rate16 /minKaren Hemmer PA Work Phone: [facility] HospitalEfttqwyeyu67-96-3427 15:59-0883QwX9% (BldA) [Mass fraction]98 %Jyoti Hemmer PA Work Phone: [facility] HospitalXyohfdywxt68-70-1914 15:59-0500Systolic blood tejrpefn512 mm[Hg]Jyoti Hemmer PA Work Phone: [facility] HospitalBhqybxcuon23-51-6559 15:38-0400Body xsqhol717.2 cmCorey Sujatha DO Work Phone: [place] [address]Rujiwhmrme03-60-7976 15:38-0400Body mass index (BMI) [Ratio]34.63 kg/g1Avbjv Sujatha DO Work Phone: [place] [address]Dablxoezik57-47-1617 15:38-0400Body ekrfgf084.3 kgCorey Sujatha DO Work Phone: [facility] HospitalZheudyqtmo07-70-2950 15:38-0400Diastolic blood zcnpyapu32 mm[Hg]Luzmaria Sujatha DO Work Phone: [place] [address]Uewlkuvdiw88-31-8969 15:38-0400Systolic blood xsuoinxd327 mm[Hg]Luzmaria Sujatha DO Work Phone: [place] [address]Ubupruogfd60-06-8815 13:33-0400Body jzanfb435.2 cmKaren Hemmer PA Work Phone: [facility] HospitalXsyghbvacx97-19-7021 13:33-0400Body mass index (BMI) [Ratio]34.99 kg/f6Hkceo Hemmer PA Work Phone: [place] [address]Algsgaogop45-06-7316 13:33-0400Body .33 kgKaren Hemmer PA Work Phone: [place] [address]Gyvtcjxjhb95-93-6710 13:33-0400Diastolic blood oixjtfoo56 mm[Hg]Jyoti Hemmer PA Work Phone: [place] [address]Ndwtefcntg66-91-8098 13:33-0400Heart rate91 /min Jyoti Hemmer PA Work Phone: [facility] HospitalFbesdddfff68-02-7435 13:33-0400Respiratory rate16 /minJyoti Leggett PA Work Phone: [facility] HospitalFcqtwmssah20-07-8634 13:33-6834CqW9% (BldA) [Mass fraction]99 %Jyoti Leggett PA Work Phone: [facility] HospitalQsnviodbeb36-57-7052 13:33-0400Systolic blood plpwqaex282 mm[Hg]Jyoti Leggett PA Work Phone: [facility] HospitalHowtdclury84-83-6109 10:38-0400Body ifwtpi733.18 [facility] 10:38-0400Body mass index (BMI) [Ratio]36.6 kg/a8DdkomoykpRegency Hospital Company07-02-2024 10:38-0400Body kovfibbrbgd57.3 [degF][facility]07-02-2024 10:38-0400Body cbhthe008.25 kgReg[facility]07-02-2024 10:38-0400Diastolic blood pwodqwki53 mm[Hg][facility]07-02-2024 10:38-0400 Heart rate66 /[facility]07-02-2024 10:38-0400 Respiratory rate16 /[facility]07-02-2024 10:38-0400 SaO2% (BldA) [Mass fraction]98 %[facility]07-02-2024 10:38-0400Systolic blood dmmpudip131 mm[Hg][facility] 11-13-2023 15:56-0500Body mass index (BMI) [Ratio]40.1 kg/f9IvrqsJyoti Leggett PA Work Phone: [facility] HospitalNzdqudnfaw82-93-0737 15:56-0500Body arcvss522.12 kgJyoti Leggett PA Work Phone: [facility] HospitalEvnqprbrhh14-10-0879 15:56-0500Diastolic blood dzvtkoeg30 mm[Hg]Jyoti Leggett PA Work Phone: [facility] HospitalBxweaqxihd30-82-1981 15:56-0500Heart rate81 /min Jyoti Hemmer PA Work Phone: noCrimeReportsGlkewgpkte40-42-8853 15:56-0500Respiratory rate16 /minJyoti Hemmer PA Work Phone: noCrimeReportsSlsmuuqjcx35-50-1327 15:56-1624NxF7% (BldA) [Mass fraction]99 %Jyoti Hemmer PA Work Phone: noCrimeReportsTeagnhyprd08-32-2131 15:56-0500Systolic blood pbeshexl677 mm[Hg]Jyoti Hemmer PA Work Phone: noCrimeReportsDohyotnfzk39-78-1110 18:35-0400Body lnpaft930.18 cmAbobbi Fournier Other [employer] Other 06-14-2022 18:35-0400Body mass index (BMI) [Ratio] 41.97 kg/n8BaguqShireen Fournier Other [employer] Other 06-14-2022 18:35-0400Body xqvtldumnqu75 [degF]Shireen Fournier Other [employer] Other 06-14-2022 18:35-0400Body afyfhf782.56 kgShireen Fournier Other [employer] Other 06-14-2022 18:35-0400Diastolic blood vssrcdam06 mm[Hg] Shireen Fournier Other [employer] Other 06-14-2022 18:35-0400Respiratory rate18 /minShireen Fournier Other [employer] Other 06-14-2022 18:35-8843GgL2% (BldA) [Mass fraction]98 % Shireen Fournier Other no[employer]Gram [employer] Other 06-14-2022 18:35-0400Systolic blood jxgawqru902 mm[Hg] Shireen Fournier Other [facility] [employer] Other Encounters Encounter DateEncounter TypeCare ProviderFacilityStart: 06-30-2025 End: 93-92-9541Xlqbsawdl Result EncounterCorey Sujatha DO Work Phone: noms External Department UnsolicitedStart: 06-30-2025 End: 18-19-3711Fqsqsrgqu Result EncounterCorey Sujatha DO Work Phone: noms External Department UnsolicitedStart: 06-22-2025 End: 21-21-4254Vgevmlz encounter procedureSuzi BROWNING Work Phone: noms HealthcareStart: 06-22-2025 End: 96-17-0444Zoqhptoc preventive med est patient 18-39 yrsSuzi BROWNING Work Phone: noms [facility] OBGYNComment on above:16 weeks gestation of ([facility]); Well woman exam with routine gynecological exam; Screening, , for anatomic survey ([facility]); AMA (advanced maternal age) multigravida 35+, second trimester ([facility])Start: 06-22-2025 End: 78-60-2938vmmfiercicJNI RAMEYNot AvailableStart: 06-22-2025 End: 49-37-4075Fiqqwk flowsheetSuzi BROWNING Work Phone: noMS Mozelle OBGYNStart: 06-22-2025 End: 42-65-9509Lryytg flowsheetSuzi BROWNING Work Phone: noms [facility] OBGYNStart: 06-22-2025 End: 77-87-9757Wqcvmraki Result EncounterGeneric External Data ProviderNOMS External Department UnsolicitedStart: 06-22-2025 End: 82-26-9836Agfuogla Result EncounterSuzi BROWNING Work Phone: noms External Department UnsolicitedStart: 05-27-2025 End: 11-83-8026vqpzkoyyavTHWYZ FAZIONot AvailableStart: 05-27-2025 End: 33-45-6381Bsjzpgpt flow sheetCorey Sujatha DO Work Phone: noms Brannon OBGYNComment on above:First trimester ([facility]); 12 weeks gestation of ([facility])Start: 05-27-2025 End: 92-48-2036Vpixee flowsheetCorey Sujatha DO Work Phone: noms [facility] OBGYNStart: 05-27-2025 End: 87-33-6345Tvwmds flowsheetCorey Sujatha DO Work Phone: noms [facility] OBGYNStart: 05-08-2025 End: 34-89-9521Wizire Mirian BROWNING Work Phone: [facility] [place] Family MedinceStart: 05-08-2025 End: 17-15-8089Gsvpjm Mirian BROWNING Work Phone: noms [place] [facility] MedinceStart: 05-08-2025 End: 71-43-6241Spmkpkvoa Result EncounterCorey Sujatha DO Work Phone: noms External Department UnsolicitedStart: 05-08-2025 End: 20-73-8795Elgxfn outpatient visit 15 minutesJyoti BROWNING Work Phone: [facility] [place] Family MedinceComment on above:Strain of left ankle, initial encounter (Primary Dx)Start: 05-08-2025 End: 38-08-9957zibzncigsqHCAWVIsa Saravia AvailableStart: 04-30-2025 End: 67-10-6153Xmpdqc outpatient visit 5 minutesSujatha Nurse Noms Adrianne ObNO Brannon OBGYNComment on above:GA: 5u2rOjelj: 04-30-2025 End: 02-69-8338esegqwirtiWHKBK HEMMERNot AvailableStart: 11-12-2024 End: 07-02-5683Hvvwkk outpatient visit 25 minutesJyoti BROWNING Work Phone: noMS CI FMComment on above:Dysmenorrhea (Primary Dx); Bilateral wrist pain; Class 2 obesity due to excess calories without serious comorbidity with body mass index (BMI) of 37.0 to 37.9 in adult; Tail bone painStart: 11-12-2024 End: 43-96-4456vccwkzvgisJHBYC M HEMMERNot AvailableStart: 11-12-2024 End: 74-57-8350Yszxio Mirian BROWNING Work Phone: noms CI FMStart: 11-12-2024 End: 65-10-1420Ycmnhi Mirian BROWNING Work Phone: noms CI FMStart: 06-18-2024 End: 78-23-9879Crnkmax encounter procedureCorey Robotgalaxy DO Work Phone: [facility] Work Phone: Start: 06-18-2024 End: 54-75-6399Nuieygll preventive med est patient 18-39 yrsCorey Sujatha DO Work Phone: NOLW BCP OBComment on above:Well woman exam with routine gynecological exam; PCOS (polycystic ovarian syndrome); Abnormal uterine bleeding (AUB)Start: 06-18-2024 End: 11-13-0498Hpmctbxat Result EncounterGeneric External Data ProviderNOMS External Department UnsolicitedStart: 06-18-2024 End: 53-61-2971Pxhfnojvm Result EncounterGeneric External Data ProviderNOMS External Department UnsolicitedStart: 06-16-2024 End: 25-24-1808Mqiouy Mirian BROWNING Work Phone: NOMS CI FMStart: 06-16-2024 End: 92-71-5847Ygrsne Mirian BROWNING Work Phone: noms CI FMStart: 06-16-2024 End: 58-87-0479Gfxaqk outpatient visit 25 minutesJyoti BROWNING Work Phone: NOMS CI FMComment on above:Endometrial thickening on ultrasound (Primary Dx); Lower abdominal pain; Hypokalemia; Hypomagnesemia; DysmenorrheaStart: 06-11-2024 End: 45-71-3531Jtvvrckld Result EncounterGeneric External Data ProviderNOMS External Department UnsolicitedStart: 06-11-2024 End: 16-77-5206Yhngchngr Result EncounterGeneric External Data ProviderNOMS External Department UnsolicitedStart: 04-01-2024 End: 51-34-6117yufazwikpqGbhwtwczuUniversity Hospitals [facility]ar[facility] Work Phone: Start: 04-01-2024 End: 81-82-5077Fxcqful encounter procedureFormerly [facility], [facility] [place] Work Phone: Start: 11-13-2023 End: 35-17-2175Midiyi outpatient visit 25 minutesJyoti BROWNING Work Phone: NOMS CI FMComment on above:Polyarthralgia (Primary Dx); Morbid obesity (CMS/HCC); Dry skin dermatitisStart: 87-71-2049Tnsynr Mirian BROWNING Work Phone: NOMS CI FMStart: 33-24-0738Ikswry Mirian BROWNING Work Phone: NOMS CI FMStart: 70-46-2761Tarsb Maria Elena BROWNING Work Phone: NOMS CI FMStart: 03-14-2022 End: 83-74-2206slktqxrachPxtkp Keller Other nort [employer] Other Start: 79-43-6634Lbgsny outpatient visit 25 minutes Shireen BazziG Urgent Care ClydeStart: 06-23-2020 End: 22-93-6425Xmtpzcj encounter procedureGREGSHAZIA JOSE LMitchelFacility:T4Yyuhe: 09-22-2019 End: 34-63-0882Eyzfqao encounter procedureGREGSHAZIA RODRIGUEZFacility:H1 Procedures DateProcedureProcedure DetailPerforming ClinicianStart: 08-53-7044WTK, SERUM, OPEN SPINA BIFIDACorey Sujatha DO Work Phone: Start: 86-92-0826MBAPAQBBY VAGINITIS (HTRX)Suzi BROWNING Work Phone: Start: 17-06-9141Wqqxz dip stick/tablet rgnt non-auto w/o micrscpAmy Hira BROWNING Work Phone: Start: 94-46-7827KKU,APTIMA HPV,AGE GDLNCorey Sujatha DO Work Phone: Start: 89-91-3065Qhavv dip stick/tablet rgnt non-auto w/o micrscpCorey Sujatha DO Work Phone: Start: 19-59-7125MAH CBC WITH AUTO DIFFGeneric External Data ProviderStart: 04-30-2025 End: 54-73-9997Qwqpz dip stick/tablet rgnt non-auto w/o micrscpCorey Sujatha DO Work Phone: Start: 42-87-7664DFD,APTIMA HPV,AGE GDLNCorey Sujatha DO Work Phone: Start: 31-95-0477Nenburqx identified in Urine by CultureGeneric External Data Provider Plan of Treatment DateCare ActivityDetailAuthorStart: 07-22-2025 End: 97-04-5014Hwycsvz encounter jtjsanngi79/22/2025 2:40 PM EDT Routine [facility] [address] [place], [id number] Luzmaria Solares DO [address] [place] [address] N[facility] OBGYNStart: 07-22-2025 End: 52-22-3855Bdrpnslqdvjp / ancillary services /22/2025 1:30 PM EDT Ancillary Procedure [facility] [address] [facility] [id number] [facility] OBGYNStart: 06-22-2025 End: 69-47-3947Dlxifkc encounter procedureNOMS Brannon OBGYNComment on above: ArrivedStart: 06-22-2025 End: 24-85-7205Drtri fetoprotein, maternalAlpha fetoprotein, maternal Lab Routine 16 weeks gestation of ([facility]) AMA (advanced maternal age) multigravida 35+, second trimester ([facility]) Expected: 06/22/2025 (Approximate), Expires:09/21/2025NONV HealthcareComment on above:Expected: 06/22/2025 (Approximate), Expires: 09/21/2025Start: 06-22-2025 End: 96-04-3472LR for pregnancyUS OB 14+ weeks anatomy scan Imaging Routine Screening, , for anatomic survey ([facility]) Expected: 06/22/2025, Expires: 09/21/2025NONV HealthcareComment on above:Expected: 06/22/2025, Expires: 09/21/2025Start: 44-48-5694Efrhwcolc vaccinationInfluenza Vaccine (#1) NOMS HealthcareStart: 05-27-2025 End: 22-81-3865Rlhdymm encounter psizrupqe02/27/2025 3:50 PM EDT Routine [facility] [place] [address] [place], [id number] Luzmaria Solares DO [address] [place] [address] NOMS [facility] OBGYNStart: 05-08-2025 End: 13-38-5616Rxhypcv encounter bzudqsjjc39/08/2025 10:30 AM EDT Office Visit [facility] [place] [address] [facility] [address] [place] [address] Jyoti Leggett, PA [address] [place] [address] ArrivedNOMS [place] Wilde MedinceComment on above:ArrivedStart: 04-30-2025 End: 29-70-5402SBV/RhABO/Rh Lab Routine Missed menses , unspecified gestational age ([facility]) Expected: 04/30/2025 (Approximate), Expires: 04/30/2026NOMS HealthcareComment on above:Expected: 04/30/2025 (Approximate), Expires: 04/30/2026Start: 04-30-2025 End: 41-85-6790Zgxhl type and Indirect antibody screen panel - BloodType and screen Lab Routine Missed menses , unspecified gestational age ([facility]) Expected: 04/30/2025 (Approximate), Expires: 04/30/2026[facility] Work Phone: comment on above:Expected: 04/30/2025 (Approximate), Expires: 04/30/2026Start: 04-30-2025 End: 52-67-5907Tsiww of abuse panel - Urine by Screen methodRapid drug screen, urine Lab Routine , unspecified gestational age ([facility]) Encounter for supervision of normal first in first trimester ([facility]) Expected: 04/30/2025 (Approximate), Expires: 04/30/2026NOMS HealthcareComment on above: Expected: 04/30/2025 (Approximate), Expires: 04/30/2026Start: 11-12-2024 End: 03-35-9505Rhldmoe encounter procedureNOMS CI FMComment on above:Arrived Start: 06-18-2024 End: 71-30-1658Usxolby encounter ysglifrqv16/18/2024 3:30 PM EDT Office Visit [facility] [address] [facility] [address] Luzmaria Solares, DO [address] [place] [address] NOMS BCP OBStart: 06-18-2024 End: 03-42-6621Yvdydrqdqpatd hormone (AMH)Antimullerian hormone (AMH) Lab Routine PCOS (polycystic ovarian syndrome) Abnormal uterine bleeding (AUB) Expected: 06/18/2024 (Approximate), Expires: 06/18/2025NOMS HealthcareComment on above:Expected: 06/18/2024 (Approximate), Expires: 06/18/2025Start: 06-18-2024 End: 60-50-9064BEWTJXEC Lab Routine PCOS (polycystic ovarian syndrome) Expected: 06/18/2024 (Approximate), Expires: 06/18/2025NOMS HealthcareComment on above: Expected: 06/18/2024 (Approximate), Expires: 06/18/2025Start: 06-16-2024 End: 15-69-3372Uihbn metabolic 1998 panel - Serum or PlasmaBasic metabolic panel Lab Routine Hypokalemia Expected: 06/16/2024 (Approximate), Expires: 06/16/2025 [facility] Work Phone: Comment on above:Expected: 06/16/2024 (Approximate), Expires: 06/16/2025Start: 06-16-2024 End: 60-87-6701Fesraiudy [Mass/volume] in Serum or PlasmaMagnesium Lab Routine Hypomagnesemia Expected: 06/16/2024 (Approximate), Expires: 06/16/2025NOMS HealthcareComment on above:Expected: 06/16/2024 (Approximate), Expires: 06/16/2025Start: 06-16-2024 End: 51-60-5261Amadfyg encounter procedureNOMS CI FMComment on above:Arrived Start: 77-39-4203Atlrafode vaccinationInfluenza Vaccine (#1)[facility] Start: 06-47-7519Damylxzon vaccinationInfluenza Vaccine (#1)[facility] Comment on above:Postponed from 06/01/2023 (Patient Refused)Start: 02-11-2024 End: 87-64-4388Ghlnbmp encounter /13/2024 4:00 PM EDT Office Visit [facility] CI FM [address] [place] [address] Jyoti Leggett PA [address] [facility] [address] [place] [address] NOMS CI FMStart: 11-13-2023 End: 06-21-5496Kaifejj encounter procedureNOMS CI FMComment on above:Arrived Start: 96-84-2780Nqcvspgqh for malignant neoplasm of cervixNOMS HealthcareStart: 24-76-1276Stskjhhoq for malignant neoplasm of cervixPap SmearNOMS Healthcare Bacteria identified in Urine by CultureURINE CULTURE, ROUTINE Lab Routine 06/11/2024 8:15 PM EDTNOMS HealthcareBacteria identified in Urine by Culture Urine culture Microbiology Routine Missed menses Ordered: 04/30/2025NONV HealthcareComment on above:Ordered: 04/30/2025BC W Auto Differential panel - BloodCBC and differential Lab Routine PCOS (polycystic ovarian syndrome) Ordered: 06/18/2024[facility] HealthcareComment on above:Ordered: 06/18/2024BC W Auto Differential panel - BloodCBC and differential Lab Routine Missed menses , unspecified gestational age ([facility]) Ordered: 04/30/2025NONV HealthcareComment on above:Ordered: 04/30/2025HLAMYDIA TRACHOMATIS (GENITO/STI) CHLAMYDIA TRACHOMATIS (GENITO/STI) Lab Routine 16 weeks gestation of ([facility]) AMA (advanced maternal age) multigravida 35+, second trimester ([facility]) Ordered: 06/22/2025[facility] HealthcareComment on above:Ordered: 06/22/2025 Cytology Cervical or vaginal smear or scraping studyPap Smear Pathology and Cytology Routine Well woman exam with routine gynecological exam Ordered: [facility] Healthcare Work Phone: comment on above:Ordered: 06/18/2024ytology Cervical or vaginal smear or scraping studyPap Smear Pathology and Cytology Routine Well woman exam with routine gynecological exam Ordered: 06/22/2025[facility] Healthcare Work Phone: comment on above:Ordered: 06/22/2025DHEA-sulfateDHEA- sulfate Lab Routine PCOS (polycystic ovarian syndrome) Ordered: 06/18/2024NONV HealthcareComment on above:Ordered: 06/18/2024Follicle stimulating hormone Follicle stimulating hormone Lab Routine PCOS (polycystic ovarian syndrome) Ordered: 06/18/2024[facility] HealthcareComment on above:Ordered: 06/18/2024hCG, quantitative, pregnancyhCG, quantitative, Lab Routine PCOS (polycystic ovarian syndrome) Ordered: 06/18/2024[facility] HealthcareComment on above:Ordered: 06/18/2024Hemoglobin A1c/Hemoglobin.total in BloodHemoglobin A1c Lab Routine Abnormal uterine bleeding (AUB) Ordered: 06/18/2024[facility] HealthcareComment on above:Ordered: 06/18/2024Hemoglobin A1c/Hemoglobin.total in BloodHemoglobin A1c Lab Routine Missed menses , unspecified gestational age ([facility]) Ordered: 04/30/2025[facility] HealthcareComment on above:Ordered: 04/30/2025Hepatitis B virus surface Ag [Presence] in Serum or Plasma by ImmunoassayHepatitis B surface antigen Lab Routine Missed menses , unspecified gestational age ([facility]) Ordered: 04/30/2025[facility] HealthcareComment on above:Ordered: 04/30/2025Hepatitis C virus Ab [Presence] in Serum or Plasma by Immunoassay Hepatitis C antibody Lab Routine Missed menses , unspecified gestational age ([facility]) Ordered: 04/30/2025[facility] HealthcareComment on above: Ordered: 04/30/2025HIV-1/HIV-2 antigen/antibody combination immunoassayHIV-1 and HIV-2 antibodies Lab Routine Missed menses , unspecified gestational age ([facility]) Ordered: 04/30/2025[facility] HealthcareComment on above:Ordered: 04/30/2025Human papilloma virus DNA [Presence] in Unspecified specimen by Probe with amplificationHPV DNA probe, amplified Microbiology Routine Well woman exam with routine gynecological exam Ordered: 06/18/2024[facility] HealthcareComment on above:Ordered: 06/18/2024Human papilloma virus DNA [Presence] in Unspecified specimen by Probe with amplificationHPV DNA probe, amplified Microbiology Routine Well woman exam with routine gynecological exam Ordered: 06/22/2025[facility] HealthcareComment on above:Ordered: 06/22/2025Luteinizing hormoneLuteinizing hormone Lab Routine PCOS (polycystic ovarian syndrome) Ordered: 06/18/2024[facility] HealthcareComment on above:Ordered: 06/18/2024Neisseria gonorrhoeae DNA [Presence] in Unspecified specimen by JAYNA with probe detectionNeisseria gonorrhea DNA probe, direct Lab Routine 16 weeks gestation of ([facility]) AMA (advanced maternal age) multigravida 35+, second trimester ([facility]) Ordered: 06/22/2025[facility] HealthcareComment on above:Ordered: 06/22/2025Reagin Ab [Presence] in Serum by RPRRPR Lab Routine Missed menses , unspecified gestational age ([facility]) Ordered: 04/30/2025[facility] HealthcareComment on above: Ordered: 04/30/2025Rubella antibody, IgGRubella antibody, IgG Lab Routine Missed menses , unspecified gestational age ([facility]) Ordered: 04/30/2025[facility] HealthcareComment on above:Ordered: 04/30/2025SURESWAB(R) ADVANCED VAGINITIS PLUS, TMASURESWAB(R) ADVANCED VAGINITIS PLUS, TMA Pathology and Cytology Routine 16 weeks gestation of ([facility]) AMA (advanced maternal age) multigravida 35+, second trimester ([facility]) Ordered: 06/22/2025[facility] Healthcare Comment on above:Ordered: 06/22/2025Thyrotropin [Units/volume] in Serum or PlasmaTSH Lab Routine PCOS (polycystic ovarian syndrome) Ordered: 06/18/2024[facility] HealthcareComment on above:Ordered: 06/18/2024Thyroxine (T4) free [Mass/volume] in Serum or PlasmaT4, free Lab Routine PCOS (polycystic ovarian syndrome) Ordered: 06/18/2024[facility] HealthcareComment on above:Ordered: 06/18/2024 Immunizations Immunization DateImmunizationNotesCare GfofasdiIsoprter12-07-6453Vbzdmc Purple Cap SARS-CoV-2 VaccinationJyoti BROWNING Work Phone: NOCarondelet HealthFjahflonwu29-27-3477Ebwddp Purple Cap SARS-CoV-2 VaccinationJyoti BROWNING Work Phone: NOCarondelet HealthCytzwqplxg84-98-7041tyevomd, mumps and rubella virus vaccineKaren Hemmer PA Work Phone: [facility] HospitalZjzndxuovr60-96-9766keiqcavmnd, tetanus toxoids and pertussis vaccineKaren Hemmer PA Work Phone: [phone]-pharmaFulton State HospitalZeegwhdnew40-22-1082rddkhyxcp poliovirus vaccine, live, oralKaren Hemmer PA Work Phone: [phone]-pharmaFulton State HospitalToxanncouq66-29-4341tgkknfapjb, tetanus toxoids and pertussis vaccineKaren Hemmer PA Work Phone: [phone]-pharmaFulton State HospitalRwtkhkghvq77-79-8104wjyuanmgafd influenzae type b vaccine, conjugate unspecified formulationKaren Hemmer PA Work Phone: [phone]-pharmaFulton State HospitalWisldctszp03-88-9671zvytfycxc poliovirus vaccine, live, oralKaren Hemmer PA Work Phone: [phone]-pharmaFulton State HospitalZiejjyaipw56-54-3765onorqdf, mumps and rubella virus vaccineKaren Hemmer PA Work Phone: [phone]-SigniantFulton State HospitalGyxoqkfnab94-59-1724wazlvzposh, tetanus toxoids and pertussis vaccineKaren Hemmer PA Work Phone: [phone]-pharmaFulton State HospitalQittmazcko81-78-3340crgoifgyjo, tetanus toxoids and pertussis vaccineKaren Hemmer PA Work Phone: [phone]-pharmaFulton State HospitalYmxpwitxtt87-29-4773xvpygzxfq poliovirus vaccine, live, oralKaren Hemmer PA Work Phone: [phone]-pharmaFulton State HospitalCdfkhpcxqx19-40-8840xlfatqtaxi, tetanus toxoids and pertussis vaccineKaren Hemmer PA Work Phone: [phone]-pharmaFulton State HospitalRghildauls45-69-5928frjcnodip poliovirus vaccine, live, oralKaren Hemmer PA Work Phone: [phone]-SigniantFulton State Hospital Payers DatePayer CategoryPayerPolicy [id number] Health InsuranceHEALTHSCOPE [id number] [id number] 2.16.840.1.893193.3.57[id number] 2.16.840.1.611067.3.57[id number] 2.16.840.1.162330.3.57[id number] 2.16.840.1.532368.3.57[id number] 2.16.840.1.645717.3.57[id number] 2.16.840.1.938081.3.57[id number] 2.16.840.1.232478.3.57[id number] 2.16840.1.848935.3.579.[id number] Social History DateTypeDetailFacilityUnknown if ever smokedNokindred hospital [employer] Other Start: 11-13-2023 End: 33-64-3130Fta Assigned At BirthFulton State HospitalStart: 11-12-2023 End: 17-01-4823Kobundr smoking status NHISNever smoked tobaccoGUNN[facility] Start: 67-01-3026Zie Assigned At BirthNot on fileNONV HealthcareStart: 11-00-2431Mhghjtk use and exposureSmokeless tobacco non-userNONV Healthcare Start: 11-13-2023 End: 30-55-2634Jxnaxad intakeLifetime non-drinker (finding)[facility] HealthcareStart: 11-13-2023 End: 02-26-4172Nylazjs of Social functionNONV HealthcareStart: [id number] Assigned At [facility] HospitalHow often do you need to have someone help you when you read instructions, pamphlets, or other written material from your doctor or pharmacy [SILS]NeverNOMS HealthcareDo you belong to any clubs or organizations such as gnosticism groups, unions, fraternal or athletic groups, or school groups?NoNOMS HealthcareAre you now , , , , never or living with a partner?Living with partner NOMS HealthcareHow often to you have a drink containing alcohol?NeverNOMS HealthcareDo you feel stress - tense, restless, nervous, or anxious, or unable to sleep at night because yourmind is troubled all the time - these days [OSQ] Not at allNONV Healthcare(I/We) worried whether (my/our) food would run out before (I/we) got money to buy more.Never trueNONV HealthcareStart: 03-14-2025 PregnancyNOCarondelet Health Functional Status Ezbn[id number] Health Questionnaire 2 item (PHQ- 2) [Reported][facility] Clinical Notes 03-14-2022 to 06-22-2025 Note Date & [id number] History of Present illness Narrative* NAM Dove - 06/22/2025 3:30 PM EDT Reason for Appointment: Patient ID: Braeden Mccullough [...] in adult 11/12/2024 16 weeks gestation of ([facility]) 06/22/2025 Resolved Ambulatory Problems Diagnosis Date Noted Obesity (BMI 30.0-34.9) 11/13/2023 Past Medical History: Diagnosis Date 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 Exam conducted with a synthetic cloth binding cutter present. Vitals: Estimated body mass index is 39.16 kg/m as calculated from the following: Height as of 05/08/25: 5' 7 . Weight as of this encounter: 250 lb. BP: 116/72 Patient's last menstrual period was 02/28/2025. ASSESSMENT & PLAN ICD-10-CM 1. 16 weeks gestation of ([facility]) Z3A.16 SURESWAB(R) ADVANCED VAGINITIS PLUS, TMA CHLAMYDIA TRACHOMATIS (GENITO/STI) Neisseria gonorrhea DNA probe, direct Alpha fetoprotein, maternal Alpha fetoprotein, maternal POCT urinalysis dipstick manually resulted 2. Well woman exam with routine gynecological exam Z01.419 Pap Smear HPV DNA probe, amplified POCT urinalysis dipstick manually resulted 3. Screening, , for anatomic survey ([facility]) Z36.89 US OB 14+ weeks anatomy scan US OB 14+ weeks anatomy scan 4. AMA (advanced maternal age) multigravida 35+, second trimester ([facility]) O09.522 SURESWAB(R) ADVANCED VAGINITIS PLUS, TMA CHLAMYDIA TRACHOMATIS (GENITO/STI) Neisseria gonorrhea DNA probe, direct Alpha fetoprotein, maternal Alpha fetoprotein, maternal POCT urinalysis dipstick manually resulted Return OB/Annual Exam: Patient presents today for an annual exam/routine obstetrics appointment. Patient is currently 16w2d . Patient is doing well and states she has no complaints. Pap/cultures was obtained without difficulty and patient was given [facility] order to have obtained. 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 Exam conducted with a synthetic cloth binding cutter present. Vitals: Estimated body mass index is 38.65 kg/m as calculated from the following: Height as of 05/08/25: 5' 7 . Weight as of this encounter: 246 lb 12 oz. BP: 120/74 Patient's last menstrual period was 02/28/2025. ASSESSMENT & PLAN ICD-10-CM 1. First trimester ([facility]) Z34.91 POCT urinalysis dipstick manually resulted 2. 12 weeks gestation of ([facility]) Z3A.12 Return OB: Patient presents today for [...] of: Luzmaria Solares DO documented in this encounterFulton State [id number] History of Present illness Narrative* NAM Orourke - 05/08/2025 10:30 AM EDT Images from the original note were not included. Subjective Patient ID: Braeden Mccullough is a 34 y.o. female who presents for ankle pain. Braeden is present today for evaluation of ankle pain. Admits left ankle pain for about 3 days. Shehas been having tee horses and cramping in [...] sitting 0/10. She has only taken 1 Tylenolfor it d/t she is 10 weeks . 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) Osteopenia of left hip Visual impairment 1997 [...] or fail to improve. 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) w/o abn findings HPV (human papilloma virus) infection Implantable subdermal contraceptive surveillance Morbid obesity with BMI of 40.0-44.9, adult ([place]) Family History Problem Relation Name Age of [...] dipstick manually resulted , unspecified gestational age ([facility]) - Type and screen; Future - ABO/Rh; Future - CBC and differential - Hemoglobin A1c - RPR - Rubella antibody, IgG - Hepatitis B surface antigen - Hepatitis C antibody - HIV-1 and HIV-2 antibodies - Rapid drug screen, urine; Future Encounter for supervision of normal first in first trimester ([facility]) - Rapid drug screen, urine; Future Nurse Note: OB Intake: Patient presents today for first OB visit. Patients history has been reviewed in great detail including any potential risks. Patient signed consent forms and patient desires testing in both trimesters. Patient currently has no complaints and has been advised to drink 6-8 glasses of water a day, eatno raw or undercooked meat, and stay away from [facility]. Patient has also been advised to not change litter boxes and eat 6 small meals a day. Patient has been consulted regarding the do's and don'ts ofpregnancy. Patient was given labs and all questions and concerns were answered. Follow Up: Patient is to have labs drawn and return to office for initial OB appointment with provider. Patient may call office as needed with any concerns or questions. Nurse Visit Completed by: Rasheeda Elise MA documented in this encounterFulton State [id number] History of Present illness Narrative* NAM Orourke - 11/12/2024 4:00 PM EST Images from the original note were not [...] in place for this conditions. States the PROCESS SPECIALIST visit was a lot and was overwhelmed. 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) Osteopenia of left hip Past Surgical History: [...] her to have a good conversation with herfiance about possibly working through their current concerns [...] or fail to improve. 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 Exam conducted with a synthetic cloth binding cutter present. Vitals: Estimated body mass index is [...] and if patient has not conceived by then,we will perform HSG. Patient has voiced understanding and will call our office for any further quest ions/concerns. Orders Placed This Encounter Procedures HPV DNA [...] of: Luzmaria Solares DO documented in this encounterFulton State [id number] History of Present illness Narrative* NAM Orourke - 06/16/2024 1:30 PM EDT Images from the original note were not included. Subjective Patient ID: Braeden Mccullough is a 34 y.o. female who presents for [facility] ER follow up. gFlowsheet Row Documentation from 06/12/2024 in [facility] with Jerica Hollowayman [place] Hospital Information Discharged To: Home Setting Discharge Hospital [facility] Diagnosis pelvic pain Discharge Date 06/12/24 Engagement [...] Up Wrap Up Additional Comments pt calling lime sludge mixer to follow up Call End Time 1541 [...] and they gave her 4 or 5 [place] to take home andshe did take half to 1 of them on . Sunday she was starting to feel better. She doeshave an appt with Dr. Solares on 06/18/24. 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 ER discharge meds were reviewed. Anychanges to plan are noted above. Follow up in about 5 months (around 11/16/2024). documented in this encounterFulton State [id number] History of Present illness Narrative* NAM Orourke - 11/13/2023 4:00 PM EST Subjective Patient ID: Braeden Mccullough is a 33 y.o. female who presents to become established. Braeden is present today to become established. She does not have any concerns today just wanted toget established. 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 Worst in the morning. Does stretches. Does not take anything OTC. Was on nightman for 12 years, is now on day shift. Has a 13 year old son. Was on the depo-provera shot for 10 years, caused her to gain weight. Admitsdoes not eat a healthy diet. is considering having another child. Her boyfriend wants to have a child. Considering havingher Nexplanon taken out. 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) Osteopenia of left hip Past Surgical History: [...] for use. Consider vitamin. Follow up with SQUILGEER prn. Follow up in about 3 months (around 02/11/2024) for Follow Up. documented in this encounterFulton State [id number] Evaluation note* Encounter Date Diagnosis Assessment Notes Treatment Notes Treatment Clinical Notes Mar, Spasm of thoracic back muscle (I CD-10 - M62.830) Discussed diagnosis with patient. Toradol [...] understanding and is agreeable to treatment plan Mar,therBack strain or sprain home care material was printed [employer] Other Evaluation note* Diagnosis Polyarthralgia- Primary Pain in joint, multiple sites Morbid obesity ([facility]) Morbid obesity Dry skin dermatitis Contact dermatitis and other eczema due to other specified agent documented in this encounter NOMS HealthcareEvaluation noteNo assessment information availableLake County Memorial Hospital [facility] Work Phone: Evaluation note* Diagnosis Endometrial thickening on ultrasound- Primary Lower abdominal pain Abdominal pain, other specified site Hypokalemia Hypopotassemia Hypomagnesemia Disorders of magnesium metabolism Dysmenorrhea documented in this encounter NOMS HealthcareEvaluation note* Diagnosis Well woman exam with [...] Diagnosis Missed menses , unspecified gestational age ([facility]) Encounter for supervision of normal first in first trimester ([facility]) documented in this encounter NOMS HealthcareEvaluation note* Diagnosis Strain of left ankle, initial encounter- Primary documented in this encounter [facility]S HealthcareEvaluation note* Diagnosis First trimester ([facility]) state, incidental 12 weeks gestation of ([facility]) documented in this encounter NOMS HealthcareEvaluation note* Diagnosis 16 weeks gestation of ([facility]) Well woman exam with routine gynecological exam Routine gynecological examination Screening, , for anatomic survey ([facility]) Encounter for anatomic survey AMA (advanced maternal age) multigravida 35+, second trimester ([facility]) documented in this encounter NOMS HealthcareHistory general Narrative - Reported* Type Description Date Medical History nexaplanon in arm Surgical HistoryC-[id number] [employer] Other Summary Purpose Family History Relationship Condition Age at Onset Recorded Date/T ilan father Diabetes mellitus Unknown Advance Directives Advance Directive Response Recorded Date/ Time Advance Directives No April 01 10:29am Chief Complaint and Reason for Visit Chief Complaint Allergic reaction Additional Source Comments INFORMATION SOURCE (unrecogn ized section and content) DATE CREATED AUTHOR 06/30/2020 [facility] DATE CREATED AUTHOR AUTHOR'S ORGANIZ ATION 06/23/2025 [facility] EPIC REASON FOR VISIT (unrecogniz ed section and content) ReasonCommentsWell Women VisitReasonCommentsObesityShe would like to discuss going back on Adipex.FallPt fell Sunday in the afternoon, hurt bilateral wrists and tailbone. Right wrist is worse than leftwrist. She did not go to ER. She has missed Sunday and Sunday and 1/2 a day today, not going in tomorrow d/t the job she would be doing would be using her wrists a lot.Fell down three steps. ReasonCommentsAmenorrheaReasonCommentsRoutine Visit Care Teams (unrecognized sec tion and content) Team Status: Active Member Role Status Dates PHYSICIAN NO FAMILY Primary Care Provider Active Team Status: Inactive Member Role Status Dates PHYSICIAN NO FAMILY Primary Care Provider Active Start: April 01, 2024 End: April 01, 2024Bárbara Estrada ProviderActiveStart: April 01, 2024 End: April 01, 2024Team MemberRelationshipSpecialtyStart DateEnd Date Jyoti Leggett PA [address] [address] PCP - [facility]Ed[facility] Medicine03/12/24Team MemberRelationshipSpecialtyStart DateEnd Date Jyoti Leggett PA [address] [facility] [address] [place] [address] PCP - [facility]Ed[facility] Medicine03/12/24Team MemberRelationshipSpecialtyStart DateEnd Date Jyoti Leggett PA [address] [facility] [address] [place] [address] PCP - GeneralFamily Medicine03/12/24Team MemberRelationshipSpecialtyStart DateEnd Date Jyoti Leggett, PA [address] [place] [address] PCP - GeneralFamily Medicine03/12/24Team MemberRelationshipSpecialtyStart DateEnd Date Jyoti Leggett, PA [address] [place] [address] PCP - GeneralFamily Medicine03/12/24Team MemberRelationshipSpecialtyStart DateEnd Date Jyoti Leggett, ANM [address] [place] [address] PCP - GeneralFamily Medicine03/12/24Team MemberRelationshipSpecialtyStart DateEnd Date Jyoti Leggett, PA [address] [place] [address] PCP - GeneralFamily Medicine03/12/24Team MemberRelationshipSpecialtyStart DateEnd Date Jyoti Leggett, PA [address] [place] [address] PCP - GeneralFamily Medicine03/12/24Team MemberRelationshipSpecialtyStart DateEnd Date Jyoti Leggett, PA [address] [place] [address] PCP - GeneralFamily Medicine03/12/24Team MemberRelationshipSpecialtyStart DateEnd Date Jyoti Leggett, PA [address] [place] [address] PCP - GeneralAdair County Health Systemly Medicine03/12/24 Goals (unrecognized section and content) Goals may [...] BE BASED ON THE PRIMARY CLINICAL RECORDS. [facility]. provides no warranty or guarantee of the accuracy or completeness of information in this document.
== END 2025-07-22 11:17 | disposition home or self-care (01) ==
LOC: US 11:16
PROVIDERS: PCP Physician Assistant; Visit Provider Obstetrics & Gynecology
DX: Z36.89 Encounter for other specified antenatal screening (principal); Z3A.20 20 weeks gestation of pregnancy
CPT/HCPCS: 76805; 76817

== ENCOUNTER 2025-09-14 08:25 | Outpatient (OUT) | payer OTHER, SELFPAY ==
--- OUTSIDE RECORDS SUMMARY | 2025-09-14 08:28 | XMS_ITS | Clinical Summary ---
Author Organization [facility] Address [address] [facility] [place] [address] Care Team Providers Care Reactor Service Operator Name Role Phone Jyoti Leggett Primary Care Provider Allergies No known active allergies Medications MedicationSigDispense QuantityRefillsLast FilledStart DateEnd DateStatus MV-Min-Fe Fum-FA-DHA ( 1 PO) Take by mouthActive Active Problems ProblemNoted DateDiagnosed Date16 weeks gestation of ([facility]) 5Class 2 obesity due to excess calories without serious comorbidity with body mass index (BMI) of 37.0 to 37.9 in adult11/12/2024Dysmenorrhea 06/11/2024Human papilloma virus (HPV) punlvnqca04/13/2024Osteopenia of left hip 11/13/20236562Hnvgrabkupkwoo57/13/2024ry skin ccwwlyajnq66/13/2024Estimated Date of YbxovdgpIjjfxbmmBqr62/07/2026Based on last menstrual period of 02/28/2025 Resolved Problems ProblemNoted DateDiagnosed DateResolved DateObesity (BMI 30.0-34.9)11/13/2023 11/12/2024 Encounters DateTypeDepartmentCare JgkbQgxgcjxmzpq09/24/2025 3:20 PM ESTRoutine [facility] [place] [facility] [address] [place] [address] [place] [address] Luzmaria Solares, size inconsistent with dates ([facility]) (Primary Dx); Diabetes mellitus screening; Second trimester ([facility])08/24/2025amboo flowsheet [facility] [place] [facility] [address] [place] [address] Luzmaria Solares, DO 07/23/2025bstract [facility] [place] [facility] [address] [place] [address] Jyoti Leggett PA 07/23/2025linisync Result Encounter [facility]OMS External Department Unsolicited Provider, Generic External Data 07/23/2025linisync Result Encounter NOMS External Department Unsolicited Provider, Generic External Data 07/22/2025 2:40 PM EDTRoutine [facility] [place] [facility] [address] [place] [address] Luzmaria Solares, DO Second trimester ([facility]); 20 weeks gestation of ([facility])07/22/2025amboo flowsheet [facility] [place] [facility] [address] [place] [address] Luzmaria Solares, 07/07/2025Orders Only [facility] [place] [facility] [address] [place] [address] Gina Sherman MA 06/30/2025linisync Result Encounter [facility]OMS External Department Unsolicited Luzmaria Solares, 06/24/2025Telephone [facility] [place] [facility] [address] [place] [address] Suzi Iniguez PA 06/22/2025 3:30 PM EDTRoutine [facility] [place] [facility] [address] [place] [address] Suzi Iniguez PA 16 weeks gestation of ([facility]); Well woman exam with routine gynecological exam; Screening, , for anatomic survey ([facility]); AMA (advanced maternal age) multigravida 35+, second trimester ([facility]) 06/22/2025linisync Result Encounter NOMS External Department Unsolicited Provider, Generic External Data 06/22/2025External Result Encounter [facility]OMS External Department Unsolicited Szui Iniguez PA 06/22/2025amboo flowsheet [facility] [place] [facility] [address] [place] [address] [place] [address] Suzi Iniguez PA 06/22/2025Travelfrom Last 3 Months Immunizations ImmunizationAdministration DatesNext CsxNAV2204/18/1993,03/04/1990,04/02/1989, 1988,1988HiB, lzodkqhmyqm48/04/4302ETJ2305/09/2000,11/05/1989OPV 04/18/1993,03/04/1990,1988,1988Pfizer Purple Cap SARS-CoV-2 Caeuhednrcw11/18/2021,02/25/2021 Family History Medical HistoryRelationNameCommentsArthritisFatherJohn LongoriaDiabetesFather Suresh LongoriaHearing [...] relatives?Once a week05/12/2024How often do you attend hoahaoism or rastafarian services?Never05/12/2024o you belong to any clubs or organizations such as hoahaoism groups, unions, fraternal or athletic anita ups, [...] at all 05/12/2024HQ-2AnswerDate RecordedPatient Health Questionnaire-2 Score0 05/08/2025[facility] [place] - Occupational Stress QuestionnaireAnswerDate [...] homeless or living in a halfway (including now)?No05/12/2024Estimated Date of Delivery TbqtkbiySii36/07/2026ased on last menstrual period of 02/28/2025Sex and Gender InformationValueDate RecordedSex Assigned at BirthNot on fileLegal SexFemale 12/13/2022 11:47 PM EDTGender IdentityNot on fileSexual OrientationNot on file Last Filed Vital Signs Vital SignReadingTime TakenCommentsBlood Ibvybdne827/6810 1:37 PM EDT Imzim1437 10:33 AM EDTTemperature--Respiratory Yrwq8299 10:33 AM EDTOxygen Ldmlincodz09%05/08/2025 10:33 AM EDTInhaled Oxygen Concentration-- Lewsxt855 kg (252 lb 14.4 oz)07/22/2025 1:37 PM BOHEbfhwv119.2 cm (5' 7 ) 05/08/2025 10:33 AM EDTBody Mass Index39.6108 10:33 AM EDT Plan of Treatment DateTypeDepartmentCare Team (Latest Contact Info)Xldlacnkumn21/17/2025 8:00 AM ESTAncillary Procedure [facility] [place] [facility] [address] [place] [address] 09/16/2025 8:30 AM ESTRoutine [facility] [address] [place] [address] Carolyn Salazar, DOPE POURER [address] [facility] [place] [address] Health MaintenanceDue DateLast DoneCommentsCOVID-19 Vaccine ( season) /, 02/25/2021Influenza Vaccine (#1)2025ervical Cancer Dnydyuiyj57/22/2030HPV/Ivvggd7306/22/2030Pap SmearPneumococcal Vaccine: Pediatrics (0 to 5 Years) and At-Risk Patients (6 to 64 Years)Aged Out No longer eligible based on patient's age to complete this topic Procedures Procedure NamePriorityDate/TimeAssociated DiagnosisCommentsUS OB ANATOMY 07/23/2025 8:09 AM EDT US OB CERVICAL NROBOP1107/23/2025 8:09 AM EDT AFP, SERUM, OPEN SPINA CBHNITVugbywh07/30/2025 10:45 AM EDT RECURRENT VAGINITIS (HTRX)Ecdjavg1806/22/2025 4:47 PM EDT POCT URINALYSIS HXTHPHMRIglvwaa47/22/2025 4:08 PM EDT 16 weeks gestation of ([facility]) Well woman exam with routine gynecological exam AMA (advanced maternal age) multigravida 35+, second trimester ([facility]) IGP,APTIMA HPV,AGE GAHDUsnvhew60/22/2025 3:50 PM EDT PAP YKEULJpwwzkr74/22/2025 12:00 AM EDTfrom Last 3 Months Results * US OB CERVICAL LENGTH (07/23/2025 8:09 AM EDT)Anatomical RegionLaterality ModalityOtherSpecimen (Source)Anatomical Location / LateralityCollection Method / VolumeCollection TimeReceived Time07/23/2025 8:09 AM EDT Narrative 07/23/2025 8:11 AM EDT The [facility] ?[address] ? [place] [address] ? Ultrasound Report ? Signed ? Patient: MCCULLOUGH,BRAEDEN R ?MR#: [id number] ?? : 1990 ?Acct:[id number] ?? Age/Sex: 35 / F ?ADM Date: 10/22/25 ?? Loc: US ? Attending Dr: Luzmaria Solares D.O. ? Ordering Physician: Luzmaria Solares D.O. ?? Date of Service: 07/22/25 ?? Procedure(s): US OB cervical length ?? Accession Number(s): [id number] ? cc: Luzmaria Solares D.O.; JYOTI LEGGETT ? The [facility] ? [address] ? [place] [address] ? Patient Name: ?? BRAEDEN MCCULLOUGH ? MRN: [facility]:[id number] ? date: 1990 ?Sex: F ?? Assigned Patient Location: ?? Current Patient Location: ? Accession/Order Number: [id number] ?? Exam Date: 07/22/2025 ??11:30 ?Report Date: 07/23/2025 ??08:09 ? At the request of: ?? LUZMARIA ??SUJATHA ??DO ? Procedure: ??US OB cervical length ? CLINICAL DATA: Anatomy survey ? COMPARISON: None ? ULTRASOUND OB ANATOMY ? There is a single live intrauterine gestation in breech presentation. ? Amniotic fluid volume is subjectively normal. ??The placenta is posterior. ? cardiac and somatic activity are noted with heart rate of 139 bpm. ??The ?? neural axis and all 4 extremities were surveyed by the payment analyst. ??The spine ?? is suboptimally seen. ??The stomach, bladder, kidneys, three-vessel cord ?? with insertion, 4 chamber heart with right and left ventricular outflow ?? tracts, diaphragm, facial features and male gender are seen. ?? The following measurements were obtained: ?? Biparietal diameter ?4.9 cm ?20 weeks 5 days ? 54% ?? Head circumference ? 17.9 cm ?? 20 weeks 2 days ? 30% ?? Abdominal circumference ?16.9 cm ?? 22 weeks 0 days ? 84% ?? Femur length ?3.2 cm ?20 weeks 0 days ? 23% ?? The composite ultrasound age based these measurements is 20 weeks 5 days +/- 1 ?? week 3 days. ??The estimated date of delivery is 12/04/2025. ??Estimated ?? weight is 14 ounces +/- 2 ounces (60%) ? US/US OB cervical length ?? IMPRESSION: ? SINGLE LIVE INTRAUTERINE GESTATION WITH ULTRASOUND AGE OF 20 WEEKS 5 DAYS. ? SUBOPTIMAL EVALUATION OF THE SPINE. ? ULTRASOUND OB CERVICAL LENGTH ? The cervix was evaluated with a transvaginal probe. ??The cervix is closed with ?? estimated length of approximately 5.7 cm. ??There is no evidence of previa. ? IMPRESSION: ? UNREMARKABLE, CLOSED CERVIX. ? Impression dictated by: Jyoti Franks M.D. ??07/23/2025 8:09 AM ? Dictation Location: [place] [address] ? Electronically authenticated by: [id number] ??Y ?? Date: 07/23/2025 ??08:09 ? Dictated By: ?Jyoti Franks M.D. ? Signed By: ?07/23/25 0811 ? DD/ 0809 ? TD/TT: ? Contour Path Tape Mill Operator: Procedure Note Radiology, Radiologist, - 07/23/2025 [place] [address] Ultrasound Report Signed Patient: BRAEDEN MCCULLOUGH RMR#: [id number] : 1990Acct:[id number] Age/Sex: 35 / FADM Date: 07/22/25 Loc: US Attending Dr: Luzmaria Solares D.O. Ordering Physician: Luzmaria Solares D.O. Date of Service: 07/22/25 Procedure(s): US OB cervical length Accession Number(s): [id number] cc: Luzmaria Solares D.O.; JYOTI LEGGETT [address] [address] Patient Name: BRAEDEN MCCULLOUGH MRN: [facility]:[id number] date: 1990 Sex: F Assigned Patient Location: Current Patient Location: Accession/Order Number: [id number] Exam Date: 07/22/2025 11:30 Report Date: 07/23/2025 08:09 At the request of: LUZMARIA SOLARES DO Procedure: US OB cervical length CLINICAL DATA: Anatomy survey COMPARISON: None ULTRASOUND OB ANATOMY There is a single live intrauterine gestation in breech presentation. Amniotic fluid volume is subjectively normal. The placenta is posterior. cardiac and somatic activity are noted with heart rate of 139 bpm.The neural axis and all 4 extremities were surveyed by the payment analyst. Thespine is suboptimally seen. The stomach, bladder, kidneys, three-vesselcord with insertion, 4 chamber heart with right and left ventricular outflow tracts, diaphragm, facial features and male gender are seen. The following measurements were obtained: Biparietal diameter 4.9 cm 20 weeks 5 days 54% Head circumference 17.9 cm 20 weeks 2 days 30% Abdominal circumference 16.9 cm 22 weeks 0 days 84% Femur length 3.2 cm 20 weeks 0 days 23% The composite ultrasound age based these measurements is 20 weeks 5 days+/- 1 week 3 days. The estimated date of delivery is 12/04/2025. Estimated weight is 14 ounces +/- 2 ounces (60%) US/US OB cervical length IMPRESSION: SINGLE LIVE INTRAUTERINE GESTATION WITH ULTRASOUND AGE OF 20 WEEKS 5 DAYS. SUBOPTIMAL EVALUATION OF THE SPINE. ULTRASOUND OB CERVICAL LENGTH The cervix was evaluated with a transvaginal probe. The cervix is closedwith estimated length of approximately 5.7 cm. There is no evidence of previa. IMPRESSION: UNREMARKABLE, CLOSED CERVIX. Impression dictated by: Jyoti Franks M.D. 07/23/2025 8:09 AM Dictation Location: [place] [address] Electronically authenticated by: [id number] Y Date: 508:09 Dictated By: Jyoti Franks M.D. Signed By:07/23/2511 DD/ 8 TD/TT: Contour Path Tape Mill Operator: Authorizing ProviderResult TypeResult StatusGeneric External Data Provider CLINISYNC IMAGINGFinal Result * US OB ANATOMY (07/23/2025 8:09 AM EDT)Anatomical RegionLateralityModalityOther Specimen (Source)Anatomical Location / LateralityCollection Method / Volume Collection TimeReceived Time07/23/2025 8:09 AM EDT Narrative 07/23/2025 8:12 AM EDT The [facility] ?[address] ? [place] ? Ultrasound Report ? Signed ? Patient: MCCULLOUGH,BRAEDEN R ?MR#: [id number] ?? : 1990 ?Acct:[id number] ?? Age/Sex: 35 / F ?ADM Date: 07/22/25 ?? Loc: US ? Attending Dr: Luzmaria Solares D.O. ? Ordering Physician: Luzmaria Solares D.O. ?? Date of Service: 07/22/25 ?? Procedure(s): US OB anatomy ?? Accession Number(s): [id number] ? cc: Luzmaria Solares D.O.; JYOTI LEGGETT ? The [facility] ? [address] ? [place] [address] ? Patient Name: ?? BRAEDEN MCCULLOUGH ? MRN: [facility]:[id number] ? date: 1990 ?Sex: F ?? Assigned Patient Location: ?? Current Patient Location: ? Accession/Order Number: [id number] ?? Exam Date: 07/22/2025 ??11:30 ?Report Date: 07/23/2025 ??08:09 ? At the request of: ?? LUZMARIA ??SUJATHA ??DO ? Procedure: ??US OB cervical length ? CLINICAL DATA: Anatomy survey ? COMPARISON: None ? ULTRASOUND OB ANATOMY ? There is a single live intrauterine gestation in breech presentation. ? Amniotic fluid volume is subjectively normal. ??The placenta is posterior. ? cardiac and somatic activity are noted with heart rate of 139 bpm. ??The ?? neural axis and all 4 extremities were surveyed by the payment analyst. ??The spine ?? is suboptimally seen. ??The stomach, bladder, kidneys, three-vessel cord ?? with insertion, 4 chamber heart with right and left ventricular outflow ?? tracts, diaphragm, facial features and male gender are seen. ?? The following measurements were obtained: ?? Biparietal diameter ?4.9 cm ?20 weeks 5 days ? 54% ?? Head circumference ? 17.9 cm ?? 20 weeks 2 days ? 30% ?? Abdominal circumference ?16.9 cm ?? 22 weeks 0 days ? 84% ?? Femur length ?3.2 cm ?20 weeks 0 days ? 23% ?? The composite ultrasound age based these measurements is 20 weeks 5 days +/- 1 ?? week 3 days. ??The estimated date of delivery is 12/04/2025. ??Estimated ?? weight is 14 ounces +/- 2 ounces (60%) ? US/ OB anatomy ?? IMPRESSION: ? SINGLE LIVE INTRAUTERINE GESTATION WITH ULTRASOUND AGE OF 20 WEEKS 5 DAYS. ? SUBOPTIMAL EVALUATION OF THE SPINE. ? ULTRASOUND OB CERVICAL LENGTH ? The cervix was evaluated with a transvaginal probe. ??The cervix is closed with ?? estimated length of approximately 5.7 cm. ??There is no evidence of previa. ? IMPRESSION: ? UNREMARKABLE, CLOSED CERVIX. ? Impression dictated by: Jyoti Franks M.D. ??07/23/2025 8:09 AM ? Dictation Location: [place] [address] ? Electronically authenticated by: [id number] ??Y ?? Date: 07/23/2025 ??08:09 ? Dictated By: ?Tiny,Jyoti M.D. ? Signed By: ?07/23/25 0812 ? DD/ 0809 ? TD/TT: ? Contour Path Tape Mill Operator: Procedure Note Radiology, Radiologist, MD - 07/23/2025 [place] [address] Ultrasound Report Signed Patient: BRAEDEN MCCULLOUGH RMR#: [id number] : 1990Acct:[id number] Age/Sex: 35 / FADM Date: 07/22/25 Loc: US Attending Dr: Luzmaria Solares D.O. Ordering Physician: Luzmaria Solares D.O. Date of Service: 07/22/25 Procedure(s): US OB anatomy Accession Number(s): [id number] cc: Luzmaria Solares D.O.; JYOTI LEGGETT [place] [address] Patient Name: BRAEDEN MCCULLOUGH MRN: [facility]:[id number] date: 1990 Sex: F Assigned Patient Location: Current Patient Location: Accession/Order Number: [id number] Exam Date: 07/22/2025 11:30 Report Date: 07/23/2025 08:09 At the request of: LUZMARIA SOLARES DO Procedure: US OB cervical length CLINICAL DATA: Anatomy survey COMPARISON: None ULTRASOUND OB ANATOMY There is a single live intrauterine gestation in breech presentation. Amniotic fluid volume is subjectively normal. The placenta is posterior. cardiac and somatic activity are noted with heart rate of 139 bpm.The neural axis and all 4 extremities were surveyed by the payment analyst. Thespine is suboptimally seen. The stomach, bladder, kidneys, three-vesselcord with insertion, 4 chamber heart with right and left ventricular outflow tracts, diaphragm, facial features and male gender are seen. The following measurements were obtained: Biparietal diameter 4.9 cm 20 weeks 5 days 54% Head circumference 17.9 cm 20 weeks 2 days 30% Abdominal circumference 16.9 cm 22 weeks 0 days 84% Femur length 3.2 cm 20 weeks 0 days 23% The composite ultrasound age based these measurements is 20 weeks 5 days+/- 1 week 3 days. The estimated date of delivery is 12/04/2025. Estimated weight is 14 ounces +/- 2 ounces (60%) US/US OB anatomy IMPRESSION: SINGLE LIVE INTRAUTERINE GESTATION WITH ULTRASOUND AGE OF 20 WEEKS 5 DAYS. SUBOPTIMAL EVALUATION OF THE SPINE. ULTRASOUND OB CERVICAL LENGTH The cervix was evaluated with a transvaginal probe. The cervix is closedwith estimated length of approximately 5.7 cm. There is no evidence of previa. IMPRESSION: UNREMARKABLE, CLOSED CERVIX. Impression dictated by: Jyoti Franks M.D. 07/23/2025 8:09 AM Dictation Location: [place] [address] Electronically authenticated by: [id number] Y Date: 508:09 Dictated By: Jyoti Franks M.D. Signed By:07/23/25811 DD/ 8 TD/TT: Contour Path Tape Mill Operator: Authorizing ProviderResult TypeResult StatusGeneric External Data Provider CLINISYNC IMAGINGFinal Result * AFP, SERUM, OPEN SPINA BIFIDA (06/30/2025 10:45 AM EDT)ComponentValueRef Range Test MethodAnalysis TimePerformed AtPathologist SignatureRESULTSReport.TBHTEST RESULTS:*Screen Negative*.TBHGEST. AGE ON COLLECTION DATE17.4. weeksTBHGESTAT. AGE BASED ONLMP.TBHComment: Recalculations are not recommended when gestational dating by LMP and ultrasound are within 10 days. MATERNAL AGE AT EDD37.5. yrTBHRACECaucasian.TKJJUZNYJ826. lbsTBHINSULIN DEP DIABETESNo.TBHMULTIPLE GESTATIONNo.TBHAFP VALUE29.7. ng/mLTBHAFP MOM1.02.TBHOSBR RISK 1 EF15517.TBHINTERPRETATIONComment.TBHComment: Interpretation: Screen Negative This result is screen [...] Customer Services to discuss available options. ??The [employer] recommends amniocentesis be offered to women age 35 and older. COMMENT:Comment.TBHComment: Zaira Michelle, Ph.D., [facility] Director References: Available Upon Request. Multiples Of Median Cutoffs ?For AFP Elevations Laws ?? 2.5 ? Black ?2.8 IDD ? 2.0 ? Twins ?4.5 ?Abbreviation Definitions IDD - Insulin Dep Diabetes OSBR - Open Spina Bifida Risk For further inquiries contact [facility] at [phone]. This test was developed and its performance characteristics determined by [employer]. It has not been cleared or approved by the Food and Drug Administration. Performed at: ??TG - [facility] [address] [place], [place] ??[id number] Mineral Resources Inspector: Nichole Agudelo [facility], Phone: ??[phone] Specimen (Source)Anatomical Location / LateralityCollection Method / Volume Collection TimeReceived Time06/30/2025 10:45 AM EDT06/30/2025 10:47 AM EDT Narrative CLIN[facility]NC - 07/02/2025 12:08 AM EDT N N LMP [id number] 2 16 N 1 250 N N N N N White/ Authorizing ProviderResult TypeResult StatusGeneric External Data ProviderLAB BLOOD ORDERABLESFinal ResultPerforming OrganizationAddressCity/State/ZIP Code Phone Number [facility] * (ABNORMAL) RECURRENT VAGINITIS (HTRX) (06/22/2025 4:47 PM EDT)ComponentValue Ref RangeTest MethodAnalysis TimePerformed AtPathologist SignatureATOPOBIUM ZLQTDTW11.17(A)19.961 - 24.689 ppm06/24/2025 6:46 AM EDTHealthTrackRx at [facility] HospitalPortATOPOBIUM VAGINAEDetected(A)19.961 - 24.689 ppm06/24/2025 6:46 AM EDT [facility],3 (BACTERIAL VAGINOSIS ASSOCIATED BACTERIA 2, 3); MOBILUNCUS ICF640.961 - 24.689 ppm06/24/2025 6:46 AM EDTHealthTrackRx at [facility]BV[facility] 2,3 (BACTERIAL VAGINOSIS ASSOCIATED BACTERIA 2, 3); MOBILUNCUS SPP Not Ysqeyxgz14.961 - 24.689 ppm06/24/2025 6:46 AM EDTHealthTrackRx at [facility] SALIMA ALBICANS, PARAPSILOSIS, KGXFNJFMCY78.806(A)23.000 - 30.347 ppm 06/24/2025 6:46 AM EDTHealthTrackRx at LabPortCANDIDA ALBICANS, PARAPSILOSIS, TROPICALISDetected(A)23.000 - 30.347 ppm06/24/2025 6:46 AM EDTHealthTrackRx at LabPortCANDIDA TCRSQNJX698.000 - 31.618 ppm06/24/2025 6:46 AM EDTHealthTrackRx at LabPortCANDIDA GLABRATANot Xkfnnvzb48.000 - 31.618 ppm06/24/2025 6:46 AM EDTHealthTrackRx at LabPortCANDIDA YREFUY498.000 - 30.873 ppm06/24/2025 6:46 AM EDTHealthTrackRx at LabPortCANDIDA KRUSEINot Nvwhhgal41.000 - 30.873 ppm 06/24/2025 6:46 AM EDTHealthTrackRx at LabPortCHLAMYDIA RARPYNZUHYC320.000 - 31.586 ppm06/24/2025 6:46 AM EDTHealthTrackRx at LabPortCHLAMYDIA TRACHOMATIS Not Xydsszsk26.000 - 31.586 ppm06/24/2025 6:46 AM EDTHealthTrackRx at LabPort GARDNERELLA CBAFCMRVP09.422(A)19.961 - 24.689 ppm06/24/2025 6:46 AM EDT [facility] at LabPortGARDNERELLA VAGINALISDetected(A)19.961 - 24.689 ppm 06/24/2025 6:46 AM EDTHealthTrackRx at LabPortMEGASPHAERA (TYPES 1, 2)019.961 - 24.689 ppm06/24/2025 6:46 AM EDTHealthTrackRx at LabPortMEGASPHAERA (TYPES 1, 2)Not Uspaaqmh82.961 - 24.689 ppm5 6:46 AM EDTHealthTrackRx at LabPortNEISSERIA PEBFQLKGWVB992.000 - 32.587 ppm06/24/2025 6:46 AM EDT [facility] at LabPortNEISSERIA GONORRHOEAENot Pwfvrgze75.000 - 32.587 ppm 06/24/2025 6:46 AM EDTHealthTrackRx at LabPortTRICHOMONAS RWZODKETD079.000 - 31.995 ppm06/24/2025 6:46 AM EDTHealthTrackRx at [facility] HospitalTRICHOMONAS VAGINALIS Not Nmlxhfnz52.000 - 31.995 ppm06/24/2025 6:46 AM EDTHealthTrackRx at [facility] MYCOPLASMA MLZHLDSWCW669.961 - 24.689 ppm06/24/2025 6:46 AM EDTHealthTrackRx at [facility]ingtonMYCOPLASMA GENITALIUMNot Vvupahfv56.961 - 24.689 ppm06/24/2025 6:46 AM EDTHealthTrackRx at [facility] BloomingtonSpecimen (Source)Anatomical Location / LateralityCollection Method / VolumeCollection TimeReceived TimeTissue 06/22/2025 4:47 PM EDT06/24/2025 1:56 AM EDT Narrative Authorizing ProviderResult TypeResult StatusAmy Covina [facility] BLOOD ORDERABLES Final ResultPerforming OrganizationAddressCity/State/ZIP CodePhone Number [facility] [address] [place] [address] * (ABNORMAL) POCT urinalysis dipstick manually resulted (06/22/2025 4:08 PM EDT) ComponentValueRef RangeTest MethodAnalysis TimePerformed AtPathologist SignatureColor, UAYellowClarity, UACloudyGlucose, UANegativeNegative - 2000(110) ++++ mg/dLBilirubin, UANegativeNegative - 4(70) +++ mg/dLKetones, UA PositiveNegative - 160(16) ++++ mg/dLComment:1+Spec Grav, UA1.0301 - 1.03 Blood, UAPositiveNegative - 50 Malvin/mcLComment:1+pH, UA5.55 - 9Protein, UA1+ Negative - 2000(20) ++++ mg/dLUrobilinogen, UA0.20.2 - 12 mg/dLLeukocytes, UA 2+Negative - 500+++ Dionte/mcLNitrite, UANegativeNegative - PositiveSpecimen (Source)Anatomical Location / LateralityCollection Method / VolumeCollection TimeReceived YhsnShmgh90/22/2025 4:08 PM EDT Narrative Authorizing ProviderResult TypeResult StatusSuzi Iniguez [facility] TEST ENTER/EDIT ORDERABLESFinal Result * IGP,APTIMA HPV,AGE [...] at: 01 =G ?[facility] ?? [address] [place] ??[phone] ?? Tonya Rockwell MD, IGP, APTIMA HPV, [...] Performed by: ? 02 ?? Shelley Gardiner Domestic Technician . ? 02 Note: ? Note ?02 [...] Low,>-Panic High,A-Abnormal,AA-Critical Abnormal Performed at: 02 WB [facility] [address] [place], [place] ??[phone] ?? Tonya Rockwell MD, HPV APTIMANegativeNegativeTBHComment: This nucleic acid amplification test detects fourteen high- risk HPV types (16,18,31,33,35,39,45,51,52,56,58,59,66,68) without differentiation. Performed at: ??=G - [facility] [address] ??[id number] Mineral Resources Inspector: Tonya Rockwell MD, Phone: ??[phone] Performed at: ??WB - [facility] ??[id number] Mineral Resources Inspector: Tonya Rockwell MD, Phone: ??[phone] Specimen (Source)Anatomical Location / LateralityCollection Method / Volume Collection TimeReceived Time06/22/2025 3:50 PM EDT06/23/2025 6:54 AM EDT Narrative [facility] - 06/26/2025 4:09 PM EDT SPATULA-ALONE CERVIX Authorizing ProviderResult TypeResult StatusCorey Sujatha DOLAB BLOOD ORDERABLES Final ResultPerforming OrganizationAddressCity/State/ZIP CodePhone Number [facility] * Pap Smear (06/22/2025 12:00 AM EDT)Specimen (Source)Anatomical Location / LateralityCollection Method / VolumeCollection TimeReceived TimeSwabCervical swab / Unknown Narrative Authorizing ProviderResult TypeResult StatusCorey Sujatha DOLAB CYTOLOGY ORDERABLESFinal ResultPerforming OrganizationAddressCity/State/ZIP CodePhone Number EXTERNAL LAB from Last 3 Months Insurance Care Teams Team MemberRelationshipSpecialtyStart DateEnd Date Jyoti Leggett PA [address] [id number] PCP - GeneralFamily Medicine03/12/24
[2025-09-14 09:54] LABS: Glucose 1 Hour 117 mg/dL (<130)
[2025-09-14 10:00] LABS: Hematocrit 35.4 % (36.0-48.0); Hemoglobin 11.6 g/dL (12.0-16.0); Immature Granulocytes Abs Auto 0.05 10^3/uL (0.00-0.03); Immature Granulocytes Pct Auto 0.5 % (0.0-0.5); Lymphocytes Absolute Auto 1.2 10^3/uL (1.2-3.8); Mean Corpuscular HGB Conc 32.8 g/dL (29.9-35.2); Mean Corpuscular Hemoglobin 29.4 pg (26.7-34.0); Mean Corpuscular Volume 89.8 fL (81.0-99.0); Platelet Count 224 10^3/uL (150-450); Red Blood Count 3.94 10^6/uL (4.20-5.40); White Blood Count 10.4 10^3/uL (4.0-11.0)
== END 2025-09-14 08:26 | disposition home or self-care (01) ==
PROVIDERS: PCP Physician Assistant; Visit Provider Physician Assistant
DX: Z13.1 Encounter for screening for diabetes mellitus (principal)
CPT/HCPCS: 36415; 82950; 85025